=== PATIENT | male | born 1945 | race Caucasian/White ===

== ENCOUNTER → 2017-01-10 | Outpatient (CLI) | payer MEDICARE, BC, OTHER | LOC: MW.CHFP 08:00 | PROVIDERS: ATTEND Emergency Medicine | DX: J44.9 Chronic obstructive pulmonary disease, unspecified (principal); F51.04 Psychophysiologic insomnia; K86.1 Other chronic pancreatitis; I73.9 Peripheral vascular disease, unspecified | CPT/HCPCS: 99214 ==

== ENCOUNTER 2017-02-04 11:25 | Inpatient (IN) | payer MEDICARE, BC, OTHER ==
[2017-02-04] MEDS ORDERED: Sodium Chloride 0.9% 1,000 ML IV ONE (11:31)
[2017-02-04] MEDS ORDERED: Sodium Chloride 0.9% 10 ML Syringe FLUSH PRN (11:31)
[2017-02-04] MEDS ORDERED: Sodium Chloride 0.9% 2.5 ML Syringe FLUSH PRN (11:31)
--- NOTE | 2017-02-04 11:42 | EDM.PDOC ---
ED HPI GENERAL MEDICAL PROBLEM - General Stated Complaint: AMBULANCE Time Seen by Provider: 02/04/17 11:28 - History of Present Illness INITIAL COMMENTS - FREE TEXT/NARRATIVE: HISTORY AND PHYSICAL: History of present illness: Patient is a 71-year-old white male with extensive past medical history concern of syncopal episode he states became dizzy earlier today and lost consciousness he presents via paramedics complaint of shortness of breath at this time he was noted to be hypotensive in route he denies chest pain abdominal pain nausea vomiting he states he has been eating and drinking what he believes to be normal global last he recalls was a banana yesterday. Review of systems: As per history of present illness and below otherwise all systems reviewed and negative. Past medical history: As per history of present illness and as reviewed below otherwise noncontributory. Surgical history: As per history of present illness and as reviewed below otherwise noncontributory. Social history: No reported history of drug or alcohol abuse. Family history: As per history of present illness and as reviewed below otherwise noncontributory. Physical exam: HEENT: Atraumatic, normocephalic, pupils reactive, negative for conjunctival pallor or scleral icterus, mucous membranes dry, throat clear, neck supple, nontender, trachea midline. Lungs: Clear to auscultation, breath sounds equal bilaterally, chest nontender. Heart: S1S2, irregular, negative for clicks, rubs, or JVD. Abdomen: Soft, nondistended, nontender. Negative for masses or hepatosplenomegaly. Negative for costovertebral tenderness. Pelvis: Stable nontender. Genitourinary: Deferred. Rectal: Deferred. Extremities: Atraumatic, negative for cords or calf pain. Neurovascular unremarkable. Neuro: Awake, follows commands moves all extremities limited grossly nonfocal exam Diagnostics: CBC CMP PT/INR troponin UA urine culture blood culture x2 lactic acid EKG chest x-ray CT brain CT abdomen and pelvis Therapeutics: Normal saline 1 L bolus IV O2 monitor Impression: #1 syncope #2 hypotension #3 dehydration Definitive disposition and diagnosis as appropriate pending reevaluation and review of above. - Related Data Allergies Allergy/AdvReac Type Severity Reaction Status Date / Time No Known Allergies Allergy Verified 10/28/14 09:08 Home Meds: Home Meds Albuterol [Proventil HFA] 108 mcg INH Q4HR PRN 10/28/14 [History] Glimepiride [Amaryl] 2 mg PO WITHBREAKFAST 10/28/14 [History] Meloxicam [Mobic] 0.5 tab PO DAILY 10/28/14 [History] Tiotropium [Spiriva HandiHaler] 1 cap INH DAILY 10/28/14 [History] Zolpidem Tartrate 10 mg PO BEDTIME PRN 10/28/14 [History] atorvaSTATin Calcium [Atorvastatin Calcium] 20 mg PO DAILY 10/28/14 [History] metFORMIN HCl [Fortamet] 1.5 tab PO BID 10/28/14 [History] oxyCODONE ER [OxyCONTIN] 40 mg PO Q12HR 10/28/14 [History] Social & Family History - Tobacco Use Smoking Status *Q: Current Every Day Smoker Years of Tobacco use: 60 - Alcohol Use Days Per Week of Alcohol Use: 0 - Recreational Drug Use Recreational Drug Use: No - Living Situation & Occupation Living situation: Reports: Occupation: Retired ED ROS GENERAL - Review of Systems Review Of Systems: ROS reveals no pertinent complaints other than HPI. ED EXAM, GENERAL - Physical Exam Exam: See Below (See dictation) Course - Orders/Labs/Meds Orders: Active Orders 24 hr Category Date Time Status Cardiac Monitoring [RC] . DIRECTED Care 02/04/17 11:30 Active EKG Documentation Completion [RC] STAT Care 02/04/17 11:30 Active Oxygen Therapy, ED [RC] ASDIRECTED Care 02/04/17 11:30 Active Pulse Oximetry [RC] ASDIRECTED Care 02/04/17 11:30 Active Abdomen Pelvis wo Cont [CT] Stat Exams 02/04/17 11:31 Ordered Head wo Cont [CT] Stat Exams 02/04/17 11:31 Ordered B-TYPE NATRIURETIC PEPTIDE,BNP [CHEM] Stat Lab 02/04/17 11:30 Ordered BLOOD GAS ARTERIAL [BG] Stat Lab 02/04/17 11:31 Ordered CBC WITH AUTO DIFF [HEME] Stat Lab 02/04/17 11:30 Ordered COMPREHENSIVE METABOLIC PN,CMP [CHEM] Stat Lab 02/04/17 11:30 Ordered CULTURE BLOOD [BC] Stat Lab 02/04/17 11:31 Ordered CULTURE BLOOD [BC] Stat Lab 02/04/17 11:31 Ordered CULTURE URINE [RM] Stat Lab 02/04/17 11:31 Uncollected INR,PT,PROTHROMBIN TIME [COAG] Stat Lab 02/04/17 11:30 Ordered LACTIC ACID,WHOLE BLOOD [BG] Stat Lab 02/04/17 11:30 Ordered TROPONIN I [CHEM] Stat Lab 02/04/17 11:30 Ordered TYPE AND SCREEN [BBK] Stat Lab 02/04/17 11:31 Ordered UA W/MICROSCOPIC [URIN] Stat Lab 02/04/17 11:30 Uncollected Sodium Chloride 0.9% [Normal Saline] 1,000 ml Med 02/04/17 11:31 Active IV STAT Sodium Chloride 0.9% [Saline Flush] Med 02/04/17 11:31 Active 10 ml FLUSH ASDIRECTED PRN Sodium Chloride 0.9% [Saline Flush] Med 02/04/17 11:31 Active 2.5 ml FLUSH ASDIRECTED PRN Blood Culture x2 Reflex Set [OM.PC] Stat Oth 02/04/17 11:30 Ordered Saline Lock Insert [OM.PC] Stat Oth 02/04/17 11:30 Ordered Medication Orders Sodium Chloride (Normal Saline) 1,000 mls @ 999 mls/hr IV STAT ONE Stop: 02/04/17 12:31 Sodium Chloride (Saline Flush) 10 ml FLUSH ASDIRECTED PRN PRN Reason: Keep Vein Open Sodium Chloride (Saline Flush) 2.5 ml FLUSH ASDIRECTED PRN PRN Reason: Keep Vein Open Meds: Medications Generic Name Dose Route Start Last Admin Trade Name Freq PRN Reason Stop Dose Admin Sodium Chloride 1,000 mls @ 999 mls/hr 02/04/17 11:31 Normal Saline IV 02/04/17 12:31 STAT ONE Sodium Chloride 10 ml 02/04/17 11:31 Saline Flush FLUSH ASDIRECTED PRN Keep Vein Open Sodium Chloride 2.5 ml 02/04/17 11:31 Saline Flush FLUSH ASDIRECTED PRN Keep Vein Open Departure - Departure Time of Disposition: 11:41 Disposition: Admitted As Inpatient 65 Condition: undetermined Clinical Impression: Syncope - Discharge Information - My Orders Last 24 Hours: My Active Orders 02/04/17 11:30 Cardiac Monitoring [RC] . DIRECTED EKG Documentation Completion [RC] STAT Oxygen Therapy, ED [RC] ASDIRECTED Pulse Oximetry [RC] ASDIRECTED B-TYPE NATRIURETIC PEPTIDE,BNP [CHEM] Stat CBC WITH AUTO DIFF [HEME] Stat COMPREHENSIVE METABOLIC PN,CMP [CHEM] Stat INR,PT,PROTHROMBIN TIME [COAG] Stat LACTIC ACID,WHOLE BLOOD [BG] Stat TROPONIN I [CHEM] Stat UA W/MICROSCOPIC [URIN] Stat Blood Culture x2 Reflex Set [OM.PC] Stat Saline Lock Insert [OM.PC] Stat 02/04/17 11:31 Abdomen Pelvis wo Cont [CT] Stat Head wo Cont [CT] Stat BLOOD GAS ARTERIAL [BG] Stat CULTURE BLOOD [BC] Stat CULTURE BLOOD [BC] Stat CULTURE URINE [RM] Stat TYPE AND SCREEN [BBK] Stat Sodium Chloride 0.9% [Normal Saline] 1,000 ml IV STAT Sodium Chloride 0.9% [Saline Flush] 10 ml FLUSH ASDIRECTED PRN Sodium Chloride 0.9% [Saline Flush] 2.5 ml FLUSH ASDIRECTED PRN - Assessment/Plan Last 24 Hours: My Active Orders 02/04/17 11:30 Cardiac Monitoring [RC] . DIRECTED EKG Documentation Completion [RC] STAT Oxygen Therapy, ED [RC] ASDIRECTED Pulse Oximetry [RC] ASDIRECTED B-TYPE NATRIURETIC PEPTIDE,BNP [CHEM] Stat CBC WITH AUTO DIFF [HEME] Stat COMPREHENSIVE METABOLIC PN,CMP [CHEM] Stat INR,PT,PROTHROMBIN TIME [COAG] Stat LACTIC ACID,WHOLE BLOOD [BG] Stat TROPONIN I [CHEM] Stat UA W/MICROSCOPIC [URIN] Stat Blood Culture x2 Reflex Set [OM.PC] Stat Saline Lock Insert [OM.PC] Stat 02/04/17 11:31 Abdomen Pelvis wo Cont [CT] Stat Head wo Cont [CT] Stat BLOOD GAS ARTERIAL [BG] Stat CULTURE BLOOD [BC] Stat CULTURE BLOOD [BC] Stat CULTURE URINE [RM] Stat TYPE AND SCREEN [BBK] Stat Sodium Chloride 0.9% [Normal Saline] 1,000 ml IV STAT Sodium Chloride 0.9% [Saline Flush] 10 ml FLUSH ASDIRECTED PRN Sodium Chloride 0.9% [Saline Flush] 2.5 ml FLUSH ASDIRECTED PRN
[2017-02-04] MEDS ORDERED: Ketorolac 15 MG/ML SDV IVPUSH ONE (13:37)
[2017-02-04] MEDS ORDERED: Ondansetron 4 MG Tab.DIS PO PRN (16:17)
--- NOTE | 2017-02-04 16:32 | PCM.HP ---
H&P History of Present Illness - General Date of Service: 02/04/17 Source of Information: Patient History Limitations: Reports: No Limitations - History of Present Illness Initial Comments - Free Text/Narative: The patient is a 71-year-old gentleman who is presented to the emergency department by ambulance secondary to syncopal episodes as well as falls. The patient is a medically complex 71-year-old gentleman with presented primarily out of concern for falling. Patient reports that he has been feeling weak and off-balance for the past 3 days. Patient reports that he has had multiple injuries over the past 3 days secondary to falls almost every day. Patient says that he will get dizzy and lightheaded and then either passed out or just simply fall. The patient has denied any postictal period. Patient last saw his primary care physician 3 weeks ago. The patient has a history of severe COPD and unfortunately still continues to smoke. The patient is a his several years ago when he is by himself currently. The patient says that he has not been eating properly although he has no nausea or vomiting. He is also denied chest pain. No unusual shortness of breath. Patient feels that he has been in declining health. The patient also has been taking OxyContin 40 mg every 12 hours as needed for his chronic pain. This is secondary to pancreatitis. Onset of Symptoms: Reports: Gradual Duration of Symptoms: Reports: Day(s): Location: Reports: Generalized Quality: Reports: Dull, Throbbing Severity: Moderate Improves with: Reports: Medication Worsens with: Reports: Eating Associated Symptoms: Reports: Malaise, Syncope left lower rib Pain Score (Numeric/FACES): 5 - Related Data Allergies/Adverse Reactions: Allergies Allergy/AdvReac Type Severity Reaction Status Date / Time No Known Allergies Allergy Verified 02/04/17 11:45 Home Medications: Home Meds Budesonide/Formoterol [Symbicort 160-4.5 MCG] 1 puff INH BID 02/04/17 [History] Esomeprazole Magnesium [Nexium 24Hr] 22.3 mg PO DAILY 02/04/17 [History] Finasteride 5 mg PO DAILY 02/04/17 [History] Furosemide [Lasix] 20 mg PO DAILY 02/04/17 [History] Meloxicam 7.5 mg PO DAILY 02/04/17 [History] Metoclopramide [Reglan] 5 mg PO BID 02/04/17 [History] Sertraline [Zoloft] 50 mg PO BEDTIME 02/04/17 [History] Tamsulosin Hcl [IJD: Tamsulosin HCl] 0.4 mg PO BEDTIME 02/04/17 [History] Tiotropium [Spiriva HandiHaler] 18 mcg INH DAILY 02/04/17 [History] Zolpidem [Ambien] 5 mg PO BEDTIME 02/04/17 [History] metFORMIN HCl [Metformin HCl] 1,500 mg PO BID 02/04/17 [History] traZODone HCl [Trazodone HCl] 100 mg PO BEDTIME 02/04/17 [History] Past Medical History HEENT History: Reports: Impaired Vision Cardiovascular History: Reports: High Cholesterol, Hypertension Respiratory History: Reports: COPD Gastrointestinal History: Reports: GERD, Pancreatitis Genitourinary History: Reports: None Musculoskeletal History: Reports: None Neurological History: Reports: None Psychiatric History: Reports: Anxiety, Depression Endocrine/Metabolic History: Reports: Diabetes, Type II Hematologic History: Reports: None Immunologic History: Reports: None Oncologic (Cancer) History: Reports: None Dermatologic History: Reports: None - Infectious Disease History Infectious Disease History: Reports: None - Past Surgical History Respiratory Surgical History: Reports: Other (See Below) Other Respiratory Surgeries/Procedures: 1/2 lung removed right lung GI Surgical History: Reports: Other (See Below) Other GI Surgeries/Procedures: partial intestin removed. Social & Family History - Family History Family Medical History: Noncontributory Cardiac: Reports: CAD, Hypertension, NE Neurological: Reports: CVA Endocrine/Metabolic: Reports: Diabetes, type II - Tobacco Use Smoking Status *Q: Current Every Day Smoker Years of Tobacco use: 60 Packs/Tins Daily: 2 - Caffeine Use Caffeine Use: Reports: Coffee, Soda, Tea - Alcohol Use Days Per Week of Alcohol Use: 0 - Recreational Drug Use Recreational Drug Use: No - Living Situation & Occupation Living situation: Reports: Occupation: Retired H&P Review of Systems - Review of Systems: Review Of Systems: See Below General: Reports: Malaise, Fatigue, Decreased Appetite HEENT: Reports: No Symptoms Pulmonary: Reports: Shortness of Breath, Wheezing, Cough Cardiovascular: Reports: No Symptoms Gastrointestinal: Reports: Decreased Appetite Genitourinary: Reports: No Symptoms Musculoskeletal: Reports: Back Pain Skin: Reports: No Symptoms Psychiatric: Reports: No Symptoms Neurological: Reports: Syncope, Tremors, Difficulty Walking, Weakness Hematologic/Lymphatic: Reports: Easy Bruising Immunologic: Reports: No Symptoms Exam - Exam Exam: See Below - Vital Signs Vital Signs: Last Vital Signs Temp 36.4 C 02/04/17 14:50 Pulse 102 H 02/04/17 14:50 Resp 24 H 02/04/17 14:50 BP 82/50 L 02/04/17 14:50 Pulse Ox 96 02/04/17 14:50 Weight: 78.063 kg - Exam Quality Assessment: Supplemental Oxygen General: Alert, Oriented, Cooperative HEENT: Conjunctiva Clear (ectropion right eye), EOMI, Nares Patent. No: Mucosa Moist & [place] (Dry) Neck: Supple, Trachea Midline Lungs: Crackles, Wheezing Cardiovascular: Regular Rate, Regular Rhythm Abdomen: Normal Bowel Sounds, Soft, Hypoactive Bowel Sounds. No: Distention, Guarding, Rigidity, Tenderness Back Exam: Decreased Range of Motion Extremities: Normal Inspection Skin: Warm, Dry, Intact, Ecchymosis (scattered, arms, forehead, right elbow, left forearm, left knee) Neurological: Cranial Nerves Intact Neuro Extensive - Mental Status: Alert, Oriented x3, Normal Mood/Affect Psychiatric: Alert, Normal Affect, Normal Mood - Patient Data Result Diagrams: 02/04/17 11:50 02/04/17 11:50 *Q Meaningful Use (ADM) - VTE *Q VTE Criteria *Q: VTE Mechanical Contraindications *Q: At Risk for Falls - VTE Risk Assess *Q Each Risk Factor Represents 1 Point: Congestive Heart Failure, Less than 1 Month Total Score 1 Point Risk Factors: 1 Each Risk Factor Represents 2 Points: Age 60 - 74 Years Total Score 2 Point Risk Factors: 2 - Stroke *Q Stroke Criteria *Q: - AMI *Q AMI Criteria *Q: - Problem List (1) Syncope SNOMED Code(s): 435856392 ICD Code: R55 - SYNCOPE AND COLLAPSE Status: Acute Priority: High Current Visit: Yes Qualifiers: Syncope type: unspecified Qualified Code(s): R55 - Syncope and collapse (2) Dehydration SNOMED Code(s): 34678933 ICD Code: E86.0 - DEHYDRATION Status: Acute Priority: High Current Visit: Yes (3) Gait disturbance SNOMED Code(s): 90449513 ICD Code: R26.9 - UNSPECIFIED ABNORMALITIES OF GAIT AND MOBILITY Status: Chronic Priority: Medium Current Visit: Yes (4) Smoker SNOMED Code(s): 49312517 ICD Code: F17.200 - NICOTINE DEPENDENCE, UNSPECIFIED, UNCOMPLICATED Status : Chronic Priority: Medium Current Visit: Yes (5) Diabetes type 2, controlled SNOMED Code(s): 67275368 ICD Code: E11.9 - TYPE 2 DIABETES MELLITUS WITHOUT COMPLICATIONS Status: Chronic Priority: High Current Visit: Yes Qualifiers: Diabetes mellitus complication status: without complication Diabetes mellitus mcfp insulin use: without mcfp use Qualified Code(s): E11.9 - Type 2 diabetes mellitus without complications (6) COPD, Severe chronic obstructive pulmonary disease SNOMED Code(s): 560009397 ICD Code: J44.9 - CHRONIC OBSTRUCTIVE PULMONARY DISEASE, UNSPECIFIED Status : Chronic Priority: Medium Current Visit: Yes Problem List Initiated/Reviewed/Updated: Yes Orders Last 24hrs: Active Orders 24 hr Category Date Time Status Patient Status [ADT] Routine ADT 02/04/17 16:17 Active Blood Glucose Check, Bedside [RC] WITHMEALSANDBED Care 02/04/17 16:17 Active Oxygen Therapy [RC] PRN Care 02/04/17 16:17 Active RT Aerosol Therapy [RC] ASDIRECTED Care 02/04/17 16:22 Active Telemetry Monitoring [Cardiac Monitoring] [RC] Q8H Care 02/04/17 14:33 Active Up With Assistance [RC] ASDIRECTED Care 02/04/17 16:17 Active VTE/DVT Education [RC] PER UNIT ROUTINE Care 02/04/17 16:17 Active Vital Signs [RC] Q4H Care 02/04/17 16:17 Active PT Evaluation and Treatment [CONS] Routine Cons 02/04/17 16:17 Active [employer] Diet [DIET] Diet 02/04/17 Dinner Active CBC WITH AUTO DIFF [HEME] AM Lab 02/05/17 05:11 Ordered COMPREHENSIVE METABOLIC PN,CMP [CHEM] AM Lab 02/05/17 05:11 Ordered LACTIC ACID,WHOLE BLOOD [BG] Routine Lab 02/04/17 17:00 Ordered MAGNESIUM [CHEM] Routine Lab 02/04/17 16:17 Ordered PHOSPHORUS [CHEM] Routine Lab 02/04/17 16:17 Ordered Acetaminophen [Tylenol] Med 02/04/17 16:17 Active 650 mg PO Q4H PRN Albuterol/Ipratropium [DuoNeb 3.0-0.5 MG/3 ML] Med 02/04/17 16:17 Active 3 ml NEB Q4HRRT PRN Azithromycin [Zithromax] 500 mg Med 02/04/17 16:15 Active Sodium Chloride 0.9% [Normal Saline] 250 ml IV Q24H Budesonide/Formoterol Med 02/04/17 21:00 Ordered 1 puff INH BID Enoxaparin [Lovenox] Med 02/05/17 09:00 Active 40 mg SUBCUT DAILY Esomeprazole Magnesium [Nexium 24Hr] Med 02/05/17 09:00 Ordered 22.3 mg PO DAILY Finasteride [Proscar] Med 02/05/17 09:00 Active 5 mg PO DAILY Furosemide [Lasix] Med 02/05/17 09:00 Active 20 mg PO DAILY Ondansetron [Zofran ODT] Med 02/04/17 16:17 Active 4 mg PO Q4H PRN Sertraline [Zoloft] Med 02/04/17 21:00 Active 50 mg PO BEDTIME Sodium Chloride 0.9% [Normal Saline] 1,000 ml Med 02/04/17 16:30 Ordered IV ASDIRECTED Tamsulosin [Flomax] Med 02/04/17 21:00 Ordered 0.4 mg PO BEDTIME Tiotropium [Spiriva HandiHaler] Med 02/05/17 09:00 Active 18 mcg INH DAILY metFORMIN [Glucophage] Med 02/04/17 21:00 Ordered 1,500 mg PO BID oxyCODONE ER [OxyCONTIN] Med 02/04/17 16:25 Ordered 40 mg PO BEDTIME PRN traZODone HCl [Trazodone HCl] Med 02/04/17 21:00 Ordered 100 mg PO BEDTIME Resuscitation Status Routine Resus Stat 02/04/17 16:17 Ordered Medication Orders Acetaminophen (Tylenol) 650 mg PO Q4H PRN PRN Reason: Pain (Mild 1-3)/fever Albuterol/Ipratropium (Duoneb 3.0-0.5 Mg/3 Ml) 3 ml NEB Q4HRRT PRN PRN Reason: Shortness Of Breath/wheezing Enoxaparin Sodium (Lovenox) 40 mg SUBCUT DAILY [facility] Finasteride (Proscar) 5 mg PO DAILY [facility] Furosemide (Lasix) 20 mg PO DAILY [facility] Azithromycin 500 mg/ Sodium (Chloride) 250 mls @ 250 mls/hr IV Q24H [facility] Sodium Chloride (Normal Saline) 1,000 mls @ 125 mls/hr IV ASDIRECTED [facility] Metformin HCl (Glucophage) 1,500 mg PO BID [facility] Non-Formulary Medication (Budesonide/Formoterol) 1 puff INH BID [facility] Non-Formulary Medication (Esomeprazole Magnesium [Nexium 24hr]) 22.3 mg PO DAILY [facility] Non-Formulary Medication (Trazodone Hcl [Trazodone Hcl]) 100 mg PO BEDTIME [facility] Ondansetron HCl (Zofran Odt) 4 mg PO Q4H PRN PRN Reason: nausea, able to take PO Oxycodone HCl (Oxycontin) 40 mg PO BEDTIME PRN PRN Reason: Pain (severe 7-10) Sertraline HCl (Zoloft) 50 mg PO BEDTIME [facility] Sodium Chloride (Saline Flush) 10 ml FLUSH ASDIRECTED PRN PRN Reason: Keep Vein Open Last Admin: 02/04/17 12:06 Dose: 10 ml Sodium Chloride (Saline Flush) 2.5 ml FLUSH ASDIRECTED PRN PRN Reason: Keep Vein Open Last Admin: 02/04/17 12:07 Dose: 2.5 ml Tamsulosin HCl (Flomax) 0.4 mg PO BEDTIME [facility] Tiotropium [place] (Spiriva Handihaler) 18 mcg INH DAILY [facility] Assessment/Plan Comment:: February 04, 2017: The patient has a been admitted to observation. The patient likely has syncopal episode secondary to dehydration or volume contraction. The patient has not been eating well or drinking well within the past several days. The patient does have a lactic acid of 3.5 and he'll be placed on a lactic as protocol. I've also elected to fluid resuscitate the patient with normal saline at 125 mL per hour. Despite of the patient's lactic acid being elevated today do not suspect that this is secondary to an infection. The patient has no focal signs of infection and his white blood cell count is normal. I will treat the patient as a COPD exacerbation though with IV azithromycin 500 mg daily. The patient will also be kept on oxygen support to help keep his saturations above 92%. I've ordered PT OT for the patient to evaluate him and I have discussed with the patient the possibility of going to [facility] as he does live by himself and is thus far not able to care for himself. The patient has been taking OxyContin according to his medical record 40 mg by mouth twice a day for his chronic pain secondary to his chronic pancreatitis. This will be continued. I've also ordered a CBC, comprehensive metabolic panel for the morning. The patient will also be placed on a diabetic diet and he'll have his blood sugars checked 3 times a day and at bedtime. I have continued most of the patient's home medications. Patient's treatment plan will be adjusted as information indicates.
[2017-02-04] MEDS: Azithromycin 500 MG in Sodium Chloride 0.9% 250 ML IV SCH (16:35)
[2017-02-04] MEDS: Sodium Chloride 0.9% 1,000 ML IV SCH (16:35)
[2017-02-04] MEDS: Temazepam 15 MG Cap PO PRN (18:09)
[2017-02-04] MEDS: oxyCODONE ER 20 MG TAB.ER PO PRN (18:09)
[2017-02-04] MEDS: metFORMIN 500 MG Tab PO SCH (20:50)
[2017-02-04] MEDS: Sertraline 50 MG Tab PO SCH (20:50)
[2017-02-04] MEDS: traZODone 50 MG Tab PO SCH (20:50)
[2017-02-04] MEDS: Tamsulosin 0.4 MG Cap.ER PO SCH (20:50)
[2017-02-04] MEDS: SYMBICORT 160-4.5MCG INH SCH (21:00)
[2017-02-05] MEDS: Sodium Chloride 0.9% 1,000 ML IV SCH ×3 (04:03→23:04)
[2017-02-05 06:30] LABS: CHLORIDE,CL 106 mmol/L (98-110); SODIUM,NA 135 mmol/L (136-146)
[2017-02-05] MEDS: Albuterol/Ipratropium 3.0-0.5 MG/3 ML Neb Soln NEB PRN ×2 (07:58→17:49)
[2017-02-05] MEDS: SYMBICORT 160-4.5MCG INH SCH ×3 (08:03→20:11)
[2017-02-05] MEDS: Tiotropium Inhaler 18 MCG Inhalation Powder Cap Kit of 5 INH SCH (08:03)
[2017-02-05] MEDS: Omeprazole 20 MG Cap.CR PO SCH (08:16)
[2017-02-05] MEDS: metFORMIN 500 MG Tab PO SCH ×2 (08:16→20:10)
[2017-02-05] MEDS: Finasteride 5 MG Tab PO SCH (08:16)
[2017-02-05] MEDS: Furosemide 20 MG Tab PO SCH (08:16)
[2017-02-05] MEDS: Enoxaparin 40 MG/0.4 ML Syringe SUBCUT SCH (08:17)
--- NOTE | 2017-02-05 11:52 | PCM.PN ---
- General Info Date of Service: 02/05/17 Admission Dx/Problem (Free Text): The patient was admitted out of concern for syncopal episodes as well as multiple falls over several days. Subjective Update: the patient was changed to inpatient status from observation. Functional Status: Reports: urinating (Burrows catheter). Denies: pain controlled Pain Score: 5 (occasional rib pain) - Review of Systems General: Reports: Malaise HEENT: Reports: no symptoms Pulmonary: Reports: no symptoms Cardiovascular: Reports: No Symptoms Gastrointestinal: Reports: No symptoms Genitourinary: Reports: no symptoms Musculoskeletal: Reports: arm pain Skin: Reports: bruising Neurological: Reports: Confusion, Tremors Psychiatric: Reports: no symptoms - Patient Data Vitals - most recent: Last Vital Signs Temp 36.9 C 02/05/17 08:00 Pulse 77 02/05/17 08:00 Resp 28 H 02/05/17 08:00 BP 111/59 L 02/05/17 08:00 Pulse Ox 96 02/05/17 08:04 Weight - most recent: 78.063 kg I&O - last 24 hours: Intake & Output 02/04/17 02/05/17 02/05/17 22:59 06:59 14:59 Intake Total 717 2150 Output Total 0 50 Balance 717 2100 Lab Results last 24 hrs: Laboratory Results - last 24 hr 02/04/17 02/04/17 02/04/17 Range/Units 16:54 17:02 20:45 WBC (4.0-11.0) K/uL RBC (4.50-5.90) M/uL Hgb (13.0-17.0) g/dL Hct (38.0-50.0) % MCV (80.0-98.0) fL MCH (27.0-32.0) pg MCHC (31.0-37.0) g/dL RDW Std Deviation (28.0-62.0) fl RDW Coeff of Angie (11.0-15.0) % Plt Count (150-400) K/uL MPV (7.40-12.00) fL Neut % (Auto) (48.0-80.0) % Lymph % (Auto) (16.0-40.0) % [place] % (Auto) (0.0-15.0) % Eos % (Auto) (0.0-7.0) % Baso % (Auto) (0.0-1.5) % Neut # (Auto) (1.4-5.7) K/uL Lymph # (Auto) (0.6-2.4) K/uL [place] # (Auto) (0.0-0.8) K/uL Eos # (Auto) (0.0-0.7) K/uL Baso # (Auto) (0.0-0.1) K/uL Nucleated RBC % /100WBC Nucleated RBCs # K/uL INR (0.86-1.11) Lactate 1.9 (0.20-2.00) mmol/L Sodium (136-146) mmol/L Potassium (3.5-5.1) mmol/L Chloride (98-110) mmol/L Carbon Dioxide (21-31) mmol/L BUN (6.0-23.0) mg/dL Creatinine (0.6-1.5) mg/dL Est Cr Clr Drug Dosing mL/min Estimated GFR (MDRD) ml/min Glucose (60-110) mg/dL POC Glucose 158 H 205 H (60-110) mg/dL Calcium (8.8-10.8) mg/dL Total Bilirubin (0.1-1.5) mg/dL AST (5-40) IU/L ALT (8-54) IU/L Alkaline Phosphatase (40-150) Total Protein (6.0-8.0) g/dL Albumin (3.4-4.8) g/dL Globulin (2.0-3.5) g/dL Albumin/Globulin Ratio (1.3-2.8) 02/05/17 02/05/17 02/05/17 Range/Units 05:50 05:50 06:32 WBC 11.06 H (4.0-11.0) K/uL RBC 3.64 L (4.50-5.90) M/uL Hgb 10.8 L (13.0-17.0) g/dL Hct 33.0 L (38.0-50.0) % MCV 90.7 (80.0-98.0) fL MCH 29.7 (27.0-32.0) pg MCHC 32.7 (31.0-37.0) g/dL RDW Std Deviation 49.8 (28.0-62.0) fl RDW Coeff of Angie 15 (11.0-15.0) % Plt Count 198 (150-400) K/uL MPV 8.60 (7.40-12.00) fL Neut % (Auto) 81.4 H (48.0-80.0) % Lymph % (Auto) 6.7 L (16.0-40.0) % [place] % (Auto) 11.8 (0.0-15.0) % Eos % (Auto) 0.0 (0.0-7.0) % Baso % (Auto) 0.1 (0.0-1.5) % Neut # (Auto) 9.0 H (1.4-5.7) K/uL Lymph # (Auto) 0.7 (0.6-2.4) K/uL [place] # (Auto) 1.3 H (0.0-0.8) K/uL Eos # (Auto) 0.0 (0.0-0.7) K/uL Baso # (Auto) 0.0 (0.0-0.1) K/uL Nucleated RBC % 0.0 /100WBC Nucleated RBCs # 0 K/uL INR (0.86-1.11) Lactate (0.20-2.00) mmol/L Sodium 135 L (136-146) mmol/L Potassium 4.4 (3.5-5.1) mmol/L Chloride 106 (98-110) mmol/L Carbon Dioxide 19 L (21-31) mmol/L BUN 29 H (6.0-23.0) mg/dL Creatinine 1.0 (0.6-1.5) mg/dL Est Cr Clr Drug Dosing 73.29 mL/min Estimated GFR (MDRD) > 60.0 ml/min Glucose 172 H (60-110) mg/dL POC Glucose 165 H (60-110) mg/dL Calcium 8.1 L (8.8-10.8) mg/dL Total Bilirubin 0.9 (0.1-1.5) mg/dL AST 20 (5-40) IU/L ALT 11 (8-54) IU/L Alkaline Phosphatase 77 (40-150) Total Protein 5.9 L (6.0-8.0) g/dL Albumin 3.3 L (3.4-4.8) g/dL Globulin 2.6 (2.0-3.5) g/dL Albumin/Globulin Ratio 1.3 (1.3-2.8) 02/05/17 02/05/17 Range/Units 11:22 11:43 WBC (4.0-11.0) K/uL RBC (4.50-5.90) M/uL Hgb (13.0-17.0) g/dL Hct (38.0-50.0) % MCV (80.0-98.0) fL MCH (27.0-32.0) pg MCHC (31.0-37.0) g/dL RDW Std Deviation (28.0-62.0) fl RDW Coeff of Angie (11.0-15.0) % Plt Count (150-400) K/uL MPV (7.40-12.00) fL Neut % (Auto) (48.0-80.0) % Lymph % (Auto) (16.0-40.0) % [place] % (Auto) (0.0-15.0) % Eos % (Auto) (0.0-7.0) % Baso % (Auto) (0.0-1.5) % Neut # (Auto) (1.4-5.7) K/uL Lymph # (Auto) (0.6-2.4) K/uL [place] # (Auto) (0.0-0.8) K/uL Eos # (Auto) (0.0-0.7) K/uL Baso # (Auto) (0.0-0.1) K/uL Nucleated RBC % /100WBC Nucleated RBCs # K/uL INR 1.05 (0.86-1.11) Lactate (0.20-2.00) mmol/L Sodium (136-146) mmol/L Potassium (3.5-5.1) mmol/L Chloride (98-110) mmol/L Carbon Dioxide (21-31) mmol/L BUN (6.0-23.0) mg/dL Creatinine (0.6-1.5) mg/dL Est Cr Clr Drug Dosing mL/min Estimated GFR (MDRD) ml/min Glucose (60-110) mg/dL POC Glucose 133 H (60-110) mg/dL Calcium (8.8-10.8) mg/dL Total Bilirubin (0.1-1.5) mg/dL AST (5-40) IU/L ALT (8-54) IU/L Alkaline Phosphatase (40-150) Total Protein (6.0-8.0) g/dL Albumin (3.4-4.8) g/dL Globulin (2.0-3.5) g/dL Albumin/Globulin Ratio (1.3-2.8) Med Orders - Current: Current Medications Acetaminophen (Tylenol) 650 mg PO Q4H PRN PRN Reason: Pain (Mild 1-3)/fever Albuterol/Ipratropium (Duoneb 3.0-0.5 Mg/3 Ml) 3 ml NEB Q4HRRT PRN PRN Reason: Shortness Of Breath/wheezing Last Admin: 02/05/17 07:58 Dose: 3 ml Enoxaparin Sodium (Lovenox) 40 mg SUBCUT DAILY [facility] Last Admin: 02/05/17 08:17 Dose: 40 mg Finasteride (Proscar) 5 mg PO DAILY [facility] Last Admin: 02/05/17 08:16 Dose: 5 mg Furosemide (Lasix) 20 mg PO DAILY [facility] Last Admin: 02/05/17 08:16 Dose: 20 mg Azithromycin 500 mg/ Sodium (Chloride) 250 mls @ 250 mls/hr IV Q24H [facility] Last Admin: 02/04/17 16:35 Dose: 250 mls/hr Sodium Chloride (Normal Saline) 1,000 mls @ 125 mls/hr IV ASDIRECTED [facility] Last Admin: 02/05/17 04:03 Dose: 125 mls/hr Vancomycin HCl 1,250 mg/ (Sodium Chloride) 250 mls @ 166.667 mls/hr IV Q12H [facility] Metformin HCl (Glucophage) 1,500 mg PO BID [facility] Last Admin: 02/05/17 08:16 Dose: 1,500 mg Omeprazole (Omeprazole) 20 mg PO DAILY [facility] Last Admin: 02/05/17 08:16 Dose: 20 mg Ondansetron HCl (Zofran Odt) 4 mg PO Q4H PRN PRN Reason: nausea, able to take PO Oxycodone HCl (Oxycontin) 40 mg PO BEDTIME PRN PRN Reason: Pain (severe 7-10) Last Admin: 02/04/17 18:09 Dose: 40 mg Oxycodone HCl (Oxycodone) 5 mg PO Q4H PRN PRN Reason: Breakthrough Pain Symbicort 160-4.5mcg 1 each INH BID [facility] Last Admin: 02/05/17 10:54 Dose: 1 each Sertraline HCl (Zoloft) 50 mg PO BEDTIME [facility] Last Admin: 02/04/17 20:50 Dose: 50 mg Sodium Chloride (Saline Flush) 10 ml FLUSH ASDIRECTED PRN PRN Reason: Keep Vein Open Last Admin: 02/04/17 12:06 Dose: 10 ml Sodium Chloride (Saline Flush) 2.5 ml FLUSH ASDIRECTED PRN PRN Reason: Keep Vein Open Last Admin: 02/04/17 12:07 Dose: 2.5 ml Tamsulosin HCl (Flomax) 0.4 mg PO BEDTIME [facility] Last Admin: 02/04/17 20:50 Dose: 0.4 mg Temazepam (Restoril) 15 mg PO BEDTIME PRN PRN Reason: Sleep Last Admin: 02/04/17 18:09 Dose: 15 mg Tiotropium Hosmer (Spiriva Handihaler) 18 mcg INH DAILY [facility] Last Admin: 02/05/17 08:03 Dose: 1 cap Trazodone HCl (Trazodone) 100 mg PO BEDTIME [facility] Last Admin: 02/04/17 20:50 Dose: 100 mg Vancomycin HCl (Pharmacy To Dose - Vancomycin) 1 dose .XX ASDIRECTED [facility] Discontinued Medications Sodium Chloride (Normal Saline) 1,000 mls @ 999 mls/hr IV STAT ONE Stop: 02/04/17 12:31 Last Admin: 02/04/17 12:05 Dose: 999 mls/hr Vancomycin HCl 1,250 mg/ (Dextrose/Water) 250 mls @ 166.667 mls/hr IV Q12H [facility] Last Admin: 02/05/17 00:37 Dose: 166.667 mls/hr Ketorolac Tromethamine (Toradol) 15 mg IVPUSH STAT ONE Stop: 02/04/17 13:38 Last Admin: 02/04/17 13:42 Dose: 15 mg - Exam Quality Assessment: supplemental oxygen General: alert, oriented, cooperative, mild distress HEENT: Pupils equal, Pupils reactive. No: Scleral icterus Neck: supple Lungs: Rales (bibasilar) Cardiovascular: Regular Rate, Regular Rhythm Abdomen: bowel sounds present, soft Back Exam: Decreased Range of Motion Skin: warm, dry, intact Neurological: no new focal deficit Psy/Mental Status: alert, depressed - Problem List & Annotations (1) Bacteremia due to Gram-positive bacteria SNOMED Code(s): 875086650636 Code(s): R78.81 - BACTEREMIA Status: Acute Priority: High Current Visit : Yes (2) Syncope SNOMED Code(s): 523096530 Code(s): R55 - SYNCOPE AND COLLAPSE Status: Acute Priority: High Current Visit: Yes Qualifiers: Syncope type: unspecified Qualified Code(s): R55 - Syncope and collapse (3) Dehydration SNOMED Code(s): 59126156 Code(s): E86.0 - DEHYDRATION Status: Acute Priority: High Current Visit : Yes (4) Gait disturbance SNOMED Code(s): 83725363 Code(s): R26.9 - UNSPECIFIED ABNORMALITIES OF GAIT AND MOBILITY Status: Chronic Priority: Medium Current Visit: Yes (5) Smoker SNOMED Code(s): 77582413 Code(s): F17.200 - NICOTINE DEPENDENCE, UNSPECIFIED, UNCOMPLICATED Status: Chronic Priority: Medium Current Visit: Yes (6) Diabetes type 2, controlled SNOMED Code(s): 70042289 Code(s): E11.9 - TYPE 2 DIABETES MELLITUS WITHOUT COMPLICATIONS Status: Chronic Priority: High Current Visit: Yes Qualifiers: Diabetes mellitus complication status: without complication Diabetes mellitus termite technician insulin use: without termite technician use Qualified Code(s): E11.9 - Type 2 diabetes mellitus without complications (7) COPD, Severe chronic obstructive pulmonary disease SNOMED Code(s): 353873929 Code(s): J44.9 - CHRONIC OBSTRUCTIVE PULMONARY DISEASE, UNSPECIFIED Status : Chronic Priority: Medium Current Visit: Yes - Problem List Review Problem List Initiated/Reviewed/Updated: Yes - My Orders Last 24 Hours: My Active Orders 02/04/17 14:33 Telemetry Monitoring [Cardiac Monitoring] [RC] Q8H 02/04/17 16:15 Azithromycin [Zithromax] 500 mg Sodium Chloride 0.9% [Normal Saline] 250 ml IV Q24H 02/04/17 16:17 Patient Status [ADT] Routine Blood Glucose Check, Bedside [RC] WITHMEALSANDBED Oxygen Therapy [RC] PRN Up With Assistance [RC] ASDIRECTED Vital Signs [RC] Q4H PT Evaluation and Treatment [CONS] Routine Acetaminophen [Tylenol] 650 mg PO Q4H PRN Albuterol/Ipratropium [DuoNeb 3.0-0.5 MG/3 ML] 3 ml NEB Q4HRRT PRN Ondansetron [Zofran ODT] 4 mg PO Q4H PRN Resuscitation Status Routine 02/04/17 16:22 RT Aerosol Therapy [RC] ASDIRECTED 02/04/17 16:25 oxyCODONE ER [OxyCONTIN] 40 mg PO BEDTIME PRN 02/04/17 16:30 Sodium Chloride 0.9% [Normal Saline] 1,000 ml IV ASDIRECTED 02/04/17 17:56 Temazepam [Restoril] 15 mg PO BEDTIME PRN 02/04/17 21:00 Patient's Own Medication [Ptom] 1 each INH BID Sertraline [Zoloft] 50 mg PO BEDTIME Tamsulosin [Flomax] 0.4 mg PO BEDTIME metFORMIN [Glucophage] 1,500 mg PO BID traZODone 100 mg PO BEDTIME 02/04/17 23:45 Vancomycin Pharmacy to Dose [Pharmacy to Dose - Vancomycin] 1 dose .XX ASDIRECTED 02/04/17 [employer] Diet [DIET] 02/05/17 04:45 Insert Burrows Catheter [Insert Urinary Catheter] [OM.PC] Q24H 02/05/17 04:46 Urinary Catheter Assessment [RC] ASDIRECTED 02/05/17 09:00 Enoxaparin [Lovenox] 40 mg SUBCUT DAILY Finasteride [Proscar] 5 mg PO DAILY Furosemide [Lasix] 20 mg PO DAILY Omeprazole 20 mg PO DAILY Tiotropium [Spiriva HandiHaler] 18 mcg INH DAILY 02/05/17 11:10 oxyCODONE 5 mg PO Q4H PRN 02/05/17 12:30 Vancomycin 1,250 mg Sodium Chloride 0.9% [Normal Saline] 250 ml IV Q12H - Plan Plan:: February 04, 2017: The patient has a been admitted to observation. The patient likely has syncopal episode secondary to dehydration or volume contraction. The patient has not been eating well or drinking well within the past several days. The patient does have a lactic acid of 3.5 and he'll be placed on a lactic as protocol. I've also elected to fluid resuscitate the patient with normal saline at 125 mL per hour. Despite of the patient's lactic acid being elevated today do not suspect that this is secondary to an infection. The patient has no focal signs of infection and his white blood cell count is normal. I will treat the patient as a COPD exacerbation though with IV azithromycin 500 mg daily. The patient will also be kept on oxygen support to help keep his saturations above 92%. I've ordered PT OT for the patient to evaluate him and I have discussed with the patient the possibility of going to baffled snf as he does live by himself and is thus far not able to care for himself. The patient has been taking OxyContin according to his medical record 40 mg by mouth twice a day for his chronic pain secondary to his chronic pancreatitis. This will be continued. I've also ordered a CBC, comprehensive metabolic panel for the morning. The patient will also be placed on a diabetic diet and he'll have his blood sugars checked 3 times a day and at bedtime. I have continued most of the patient's home medications. Patient's treatment plan will be adjusted as information indicates. February 05, 2017: Patient has had 2 positive blood cultures for gram-positive cocci in clusters. The patient's azithromycin was discontinued and he was placed on vancomycin. I've also ordered a chest x-ray to help exclude staph pneumonia. Which would be a likely source of the patient's bacteremia. The patient's status is also been changed from observation to inpatient. I had a long discussion with the patient's daughter and she is concerned that he has exhibited a significant decline over the past several months. Patient's are him 2 years ago. Patient is currently in a DO NOT RESUSCITATE denied to be category. Patient's daughter is concerned that he has "given up" and likely will not do very well. The patient has had some breakthrough pain from his use of the OxyContin at night. I've ordered oxycodone 5 mg every 4 hours as necessary for breakthrough pain. I've also ordered PT OT for the patient. The patient does exhibit worsening of his ecchymoses on his arms and ordered a PT/INR which is subsequently proved to be normal. To continue with the patient's fluid support, Burrows catheter secondary to inability to urinate and his antibiotics for now. As of yesterday the patient's lactate has also normalized. The patient's treatment plan will be adjusted as information indicates. I will continue the patient's ADA diet. I've ordered testing in the morning.
[2017-02-05] MEDS: Acetaminophen 325 MG Tab PO PRN (12:17)
[2017-02-05 12:25] LABS: CHLORIDE,CL 106 mmol/L (98-110); SODIUM,NA 136 mmol/L (136-146)
[2017-02-05] MEDS: Azithromycin 500 MG in Sodium Chloride 0.9% 250 ML IV SCH (16:24)
[2017-02-05] MEDS: oxyCODONE 5 MG Tab PO PRN ×2 (16:24→23:00)
[2017-02-05] MEDS: traZODone 50 MG Tab PO SCH ×2 (19:12→20:11)
[2017-02-05] MEDS: oxyCODONE ER 20 MG TAB.ER PO PRN (19:13)
[2017-02-05] MEDS: Sertraline 50 MG Tab PO SCH (20:11)
[2017-02-05] MEDS: Tamsulosin 0.4 MG Cap.ER PO SCH (20:11)
[2017-02-06] MEDS: oxyCODONE 5 MG Tab PO PRN ×4 (06:41→20:43)
[2017-02-06] MEDS: Furosemide 20 MG Tab PO SCH (08:08)
[2017-02-06] MEDS: Piperacillin/Tazobactam 4.5 GM in Sodium Chloride 0.9% 100 ML IV SCH ×3 (08:08→19:31)
[2017-02-06] MEDS: Omeprazole 20 MG Cap.CR PO SCH (08:08)
[2017-02-06] MEDS: Finasteride 5 MG Tab PO SCH (08:08)
[2017-02-06] MEDS: Enoxaparin 40 MG/0.4 ML Syringe SUBCUT SCH (08:08)
[2017-02-06] MEDS: metFORMIN 500 MG Tab PO SCH ×2 (08:08→17:42)
[2017-02-06] MEDS: Sodium Chloride 0.9% 1,000 ML IV SCH ×2 (08:16→19:31)
[2017-02-06] MEDS: SYMBICORT 160-4.5MCG INH SCH ×2 (08:21→21:07)
[2017-02-06] MEDS: Tiotropium Inhaler 18 MCG Inhalation Powder Cap Kit of 5 INH SCH (08:21)
--- NOTE | 2017-02-06 08:22 | PCM.PN ---
- General Info Date of Service: 02/06/17 Admission Dx/Problem (Free Text): The patient was admitted out of concern for syncopal episodes as well as multiple falls over several days. Subjective Update: the patient was changed to inpatient status from observation. Functional Status: Reports: pain controlled. Denies: tolerating diet - Review of Systems General: Reports: Weakness, Fatigue. Denies: Appetite HEENT: Reports: no symptoms Pulmonary: Reports: shortness of breath, pleuritic chest pain, cough Cardiovascular: Reports: Lightheadedness Gastrointestinal: Reports: Vomiting Genitourinary: Reports: no symptoms Musculoskeletal: Reports: back pain Skin: Reports: bruising Neurological: Reports: No Symptoms Psychiatric: Reports: no symptoms - Patient Data Vitals - most recent: Last Vital Signs Temp 36.5 C 02/06/17 04:00 Pulse 118 H 02/06/17 04:00 Resp 19 02/06/17 04:00 BP 91/53 L 02/06/17 04:00 Pulse Ox 93 L 02/06/17 08:00 Weight - most recent: 78.063 kg I&O - last 24 hours: Intake & Output 02/05/17 02/06/17 02/06/17 22:59 06:59 14:59 Intake Total 1721 1250 Output Total 725 Balance 996 1250 Lab Results last 24 hrs: Laboratory Results - last 24 hr 02/05/17 02/05/17 02/06/17 Range/Units 16:35 20:10 04:34 WBC 10.24 (4.0-11.0) K/uL RBC 3.84 L (4.50-5.90) M/uL Hgb 11.2 L (13.0-17.0) g/dL Hct 34.8 L (38.0-50.0) % MCV 90.6 (80.0-98.0) fL MCH 29.2 (27.0-32.0) pg MCHC 32.2 (31.0-37.0) g/dL RDW Std Deviation 50.9 (28.0-62.0) fl RDW Coeff of Angie 15 (11.0-15.0) % Plt Count 235 (150-400) K/uL MPV 9.10 (7.40-12.00) fL Neut % (Auto) 84.0 H (48.0-80.0) % Lymph % (Auto) 6.3 L (16.0-40.0) % [place] % (Auto) 9.5 (0.0-15.0) % Eos % (Auto) 0.0 (0.0-7.0) % Baso % (Auto) 0.2 (0.0-1.5) % Neut # (Auto) 8.6 H (1.4-5.7) K/uL Lymph # (Auto) 0.6 (0.6-2.4) K/uL [place] # (Auto) 1.0 H (0.0-0.8) K/uL Eos # (Auto) 0.0 (0.0-0.7) K/uL Baso # (Auto) 0.0 (0.0-0.1) K/uL Nucleated RBC % 0.0 /100WBC Nucleated RBCs # 0 K/uL POC Glucose 113 H 158 H (60-110) mg/dL // Range/Units 06:09 WBC (4.0-11.0) K/uL RBC (4.50-5.90) M/uL Hgb (13.0-17.0) g/dL Hct (38.0-50.0) % MCV (80.0-98.0) fL MCH (27.0-32.0) pg MCHC (31.0-37.0) g/dL RDW Std Deviation (28.0-62.0) fl RDW Coeff of Angie (11.0-15.0) % Plt Count (150-400) K/uL MPV (7.40-12.00) fL Neut % (Auto) (48.0-80.0) % Lymph % (Auto) (16.0-40.0) % [place] % (Auto) (0.0-15.0) % Eos % (Auto) (0.0-7.0) % Baso % (Auto) (0.0-1.5) % Neut # (Auto) (1.4-5.7) K/uL Lymph # (Auto) (0.6-2.4) K/uL [place] # (Auto) (0.0-0.8) K/uL Eos # (Auto) (0.0-0.7) K/uL Baso # (Auto) (0.0-0.1) K/uL Nucleated RBC % /100WBC Nucleated RBCs # K/uL POC Glucose 143 H (60-110) mg/dL Med Orders - Current: Current Medications Acetaminophen (Tylenol) 650 mg PO Q4H PRN PRN Reason: Pain (Mild 1-3)/fever Last Admin: 02/05/17 12:17 Dose: 650 mg Albuterol/Ipratropium (Duoneb 3.0-0.5 Mg/3 Ml) 3 ml NEB Q4HRRT [facility] Enoxaparin Sodium (Lovenox) 40 mg SUBCUT DAILY [facility] Last Admin: 02/06/17 08:08 Dose: 40 mg Finasteride (Proscar) 5 mg PO DAILY [facility] Last Admin: 02/06/17 08:08 Dose: 5 mg Furosemide (Lasix) 20 mg PO DAILY [facility] Last Admin: 02/06/17 08:08 Dose: 20 mg Sodium Chloride (Normal Saline) 1,000 mls @ 125 mls/hr IV ASDIRECTED [facility] Last Admin: 02/06/17 08:16 Dose: 125 mls/hr Vancomycin HCl 1,250 mg/ (Sodium Chloride) 250 mls @ 166.667 mls/hr IV Q12H [facility] Last Admin: 02/06/17 00:06 Dose: 166.667 mls/hr Piperacillin Sod/Tazobactam (Sod 4.5 gm/ Sodium Chloride) 100 mls @ 100 mls/hr IV Q6H [facility] Last Admin: 02/06/17 08:08 Dose: 100 mls/hr Metformin HCl (Glucophage) 1,500 mg PO BID [facility] Last Admin: 02/06/17 08:08 Dose: 1,500 mg Omeprazole (Omeprazole) 20 mg PO DAILY [facility] Last Admin: 02/06/17 08:08 Dose: 20 mg Ondansetron HCl (Zofran Odt) 4 mg PO Q4H PRN PRN Reason: nausea, able to take PO Last Admin: 02/06/17 08:08 Dose: 4 mg Oxycodone HCl (Oxycontin) 40 mg PO BEDTIME PRN PRN Reason: Pain (severe 7-10) Last Admin: 02/05/17 19:13 Dose: 40 mg Oxycodone HCl (Oxycodone) 5 mg PO Q4H PRN PRN Reason: Breakthrough Pain Last Admin: 02/06/17 06:41 Dose: 5 mg Symbicort 160-4.5mcg 1 each INH BID [facility] Last Admin: 02/05/17 20:11 Dose: 1 each Sertraline HCl (Zoloft) 50 mg PO BEDTIME HARPAL Last Admin: 02/05/17 20:11 Dose: 50 mg Sodium Chloride (Saline Flush) 10 ml FLUSH ASDIRECTED PRN PRN Reason: Keep Vein Open Last Admin: 02/04/17 12:06 Dose: 10 ml Sodium Chloride (Saline Flush) 2.5 ml FLUSH ASDIRECTED PRN PRN Reason: Keep Vein Open Last Admin: 02/04/17 12:07 Dose: 2.5 ml Tamsulosin HCl (Flomax) 0.4 mg PO BEDTIME HARPAL Last Admin: 02/05/17 20:11 Dose: 0.4 mg Temazepam (Restoril) 15 mg PO BEDTIME PRN PRN Reason: Sleep Last Admin: 02/04/17 18:09 Dose: 15 mg Tiotropium [place] (Spiriva Handihaler) 18 mcg INH DAILY [facility] Last Admin: 02/05/17 08:03 Dose: 1 cap Trazodone HCl (Trazodone) 100 mg PO BEDTIME [facility] Last Admin: 02/05/17 20:11 Dose: Not Given Vancomycin HCl (Pharmacy To Dose - Vancomycin) 1 dose .XX ASDIRECTED [facility] Discontinued Medications Albuterol/Ipratropium (Duoneb 3.0-0.5 Mg/3 Ml) 3 ml NEB Q4HRRT PRN PRN Reason: Shortness Of Breath/wheezing Last Admin: 02/05/17 17:49 Dose: 3 ml Sodium Chloride (Normal Saline) 1,000 mls @ 999 mls/hr IV STAT ONE Stop: 02/04/17 12:31 Last Admin: 02/04/17 12:05 Dose: 999 mls/hr Azithromycin 500 mg/ Sodium (Chloride) 250 mls @ 250 mls/hr IV Q24H [facility] Last Admin: 02/05/17 16:24 Dose: 250 mls/hr Vancomycin HCl 1,250 mg/ (Dextrose/Water) 250 mls @ 166.667 mls/hr IV Q12H [facility] Last Admin: 02/05/17 00:37 Dose: 166.667 mls/hr Ketorolac Tromethamine (Toradol) 15 mg IVPUSH STAT ONE Stop: 02/04/17 13:38 Last Admin: 02/04/17 13:42 Dose: 15 mg - Exam Quality Assessment: supplemental oxygen General: alert, cooperative, no acute distress HEENT: Pupils equal, Pupils reactive Neck: supple, trachea midline Lungs: Crackles, Rales. No: Normal respiratory effort Cardiovascular: Tachycardia Abdomen: no tenderness, abnormal bowel sounds Back Exam: Decreased Range of Motion Extremities: no edema Skin: rash, ecchymosis Neurological: no new focal deficit Psy/Mental Status: alert - Problem List & Annotations (1) Bacteremia due to Gram-positive bacteria SNOMED Code(s): 479740186838 Code(s): R78.81 - BACTEREMIA Status: Acute Priority: High Current Visit : Yes Annotation/Comment:: Zosyn 4.5 g IV every 6 hours added. (2) Syncope SNOMED Code(s): 219246277 Code(s): R55 - SYNCOPE AND COLLAPSE Status: Acute Priority: High Current Visit: Yes Qualifiers: Syncope type: unspecified Qualified Code(s): R55 - Syncope and collapse (3) Dehydration SNOMED Code(s): 11913278 Code(s): E86.0 - DEHYDRATION Status: Acute Priority: High Current Visit : Yes (4) Gait disturbance SNOMED Code(s): 25685544 Code(s): R26.9 - UNSPECIFIED ABNORMALITIES OF GAIT AND MOBILITY Status: Chronic Priority: Medium Current Visit: Yes (5) Smoker SNOMED Code(s): 51424836 Code(s): F17.200 - NICOTINE DEPENDENCE, UNSPECIFIED, UNCOMPLICATED Status: Chronic Priority: Medium Current Visit: Yes (6) Diabetes type 2, controlled SNOMED Code(s): 17792148 Code(s): E11.9 - TYPE 2 DIABETES MELLITUS WITHOUT COMPLICATIONS Status: Chronic Priority: High Current Visit: Yes Qualifiers: Diabetes mellitus complication status: without complication Diabetes mellitus prison insulin use: without intermediate school teacher use Qualified Code(s): E11.9 - Type 2 diabetes mellitus without complications (7) COPD, Severe chronic obstructive pulmonary disease SNOMED Code(s): 025416665 Code(s): J44.9 - CHRONIC OBSTRUCTIVE PULMONARY DISEASE, UNSPECIFIED Status : Chronic Priority: Medium Current Visit: Yes - Problem List Review Problem List Initiated/Reviewed/Updated: Yes - My Orders Last 24 Hours: My Active Orders 02/05/17 15:49 Chest 2V [CR] Routine 02/06/17 07:30 Piperacillin/Tazobactam [Piperacil-Tazobact] 4.5 gm Sodium Chloride 0.9% [ Normal Saline] 100 ml IV Q6H 02/06/17 07:35 Albuterol/Ipratropium [DuoNeb 3.0-0.5 MG/3 ML] 3 ml NEB Q4HRRT - Plan Plan:: February 04, 2017: The patient has a been admitted to observation. The patient likely has syncopal episode secondary to dehydration or volume contraction. The patient has not been eating well or drinking well within the past several days. The patient does have a lactic acid of 3.5 and he'll be placed on a lactic as protocol. I've also elected to fluid resuscitate the patient with normal saline at 125 mL per hour. Despite of the patient's lactic acid being elevated today do not suspect that this is secondary to an infection. The patient has no focal signs of infection and his white blood cell count is normal. I will treat the patient as a COPD exacerbation though with IV azithromycin 500 mg daily. The patient will also be kept on oxygen support to help keep his saturations above 92%. I've ordered PT OT for the patient to evaluate him and I have discussed with the patient the possibility of [facility] [place] [facility] as he does live by himself and is thus far not able to care for himself. The patient has been taking OxyContin according to his medical record 40 mg by mouth twice a day for his chronic pain secondary to his chronic pancreatitis. This will be continued. I've also ordered a CBC, comprehensive metabolic panel for the morning. The patient will also be placed on a diabetic diet and he'll have his blood sugars checked 3 times a day and at bedtime. I have continued most of the patient's home medications. Patient's treatment plan will be adjusted as information indicates. February 05, 2017: Patient has had 2 positive blood cultures for gram-positive cocci in clusters. The patient's azithromycin was discontinued and he was placed on vancomycin. I've also ordered a chest x-ray to help exclude staph pneumonia. Which would be a likely source of the patient's bacteremia. The patient's status is also been changed from observation to inpatient. I had a long discussion with the patient's daughter and she is concerned that he has exhibited a significant decline over the past several months. Patient's are him 2 years ago. Patient is currently in a DO NOT RESUSCITATE denied to be category. Patient's daughter is concerned that he has "given up" and likely will not do very well. The patient has had some breakthrough pain from his use of the OxyContin at night. I've ordered oxycodone 5 mg every 4 hours as necessary for breakthrough pain. I've also ordered PT OT for the patient. The patient does exhibit worsening of his ecchymoses on his arms and ordered a PT/INR which is subsequently proved to be normal. To continue with the patient's fluid support, Burrows catheter secondary to inability to urinate and his antibiotics for now. As of yesterday the patient's lactate has also normalized. The patient's treatment plan will be adjusted as information indicates. I will continue the patient's ADA diet. I've ordered testing in the morning. February 06, 2017: The patient is a 71-year-old gentleman who is being followed for gram-positive bacteremia. The patient has had a precipitous decline over the past 24-48 hours. I've had a long discussion with the patient's daughter and I feel that the patient's prognosis is poor at this point. I've also added Zosyn 4.5 g IV every 6 hours to help cover the patient's bacteremia. He'll be continued on vancomycin. I have reviewed the patient's x-ray from yesterday and in spite of the patient's worsening respiratory system the chest x-ray is essentially unchanged. The patient will also have albuterol/Atrovent SVNs to help with his respiratory issues. The patient will be given medication for her nausea vomiting and hopefully the patient will be able to tolerate diet. Patient will be followed very closely with his vital signs and I've ordered laboratory testing for tomorrow.
[2017-02-06] MEDS: Albuterol/Ipratropium 3.0-0.5 MG/3 ML Neb Soln NEB SCH ×4 (09:40→21:09)
--- NOTE | 2017-02-06 13:22 | CT ---
EXAM DATE: 02/05/17 PATIENT'S AGE: 71 Patient: SAMUEL HUNT Facility: [place], [place] Site . Site : 1945 Study: CT Head [id number]/28/2017 1:05:24 PM Ordering Physician: Az Guo Final Report: INDICATION: Trauma. Loss of consciousness TECHNIQUE: Noncontrast axial CT of the head is submitted. No comparisons. FINDINGS: Mild cerebral and cerebellar atrophy. The ventricles, sulci and gyri are of normal size, shape and contour for age and degree of atrophy. Midline structures are centrally located. No convincing evidence of suspicious intra- or extra-axial fluid collections. IMPRESSION: 1. No radiographic evidence of acute intracranial abnormalities. 2. Mild cerebral and cerebellar atrophy. Please note that all CT scans at this facility use dose modulation, iterative reconstruction, and/or weight-based dosing when appropriate to reduce radiation dose to as low as reasonably achievable. Dictated by Bradley Asencio MD @ Feb 04 2017 1:11PM (Electronic Signature) Report Signed by Proxy. [facility]
--- NOTE | 2017-02-06 13:23 | CR ---
EXAM DATE: 02/05/17 PATIENT'S AGE: 71 Patient: SAMUEL HUNT Facility: [place], [place] Site . Site : 1945 Study: XRay Chest [id number]/28/2017 1:06:04 PM Ordering Physician: Az Guo Final Report: HISTORY: Pain, shortness of breath. Technique: One view portable chest. Comparison: Chest x-ray 10/25/2017. Findings: Chronic volume loss the right hemithorax with irregular consolidation in the right lung apex not significantly changed from 10/18/2014 chest x-ray. Blunting of the right costophrenic angle, unchanged, likely pleural thickening. Postoperative or posttraumatic deformities of the right ribs. No focal consolidation on the left. No significant left pleural effusion. No pneumothorax. Cardiomediastinal silhouette is within normal limits. Impression: Chronic right lung volume loss with right apical consolidation similar to 2014 chest x-ray. Dictated by Fuad Lazar MD @ Feb 04 2017 1:44PM (Electronic Signature) Report Signed by Proxy. [facility]
--- NOTE | 2017-02-06 13:24 | CT ---
EXAM DATE: 02/05/17 PATIENT'S AGE: 71 Patient: SAMUEL HUNT Facility: [place], [place] Site . Site : 1945 Study: CT Abdomen/Pelvis [id number]/28/2017 1:08:22 PM Ordering Physician: Az Guo Final Report: HISTORY: Pain. Ileus. Technique: CT abdomen and pelvis without contrast. Comparison: CT abdomen and pelvis 10/28/2014. Findings: Abdomen: Post cholecystectomy. Volume loss in the left lobe of the liver with moderate left intrahepatic bile duct dilation, increased since 2015 CT. Common duct is dilated up to 1.6 cm, increased from prior. Post cholecystectomy. Pancreatic parenchymal atrophy with clustered calcifications in the area of the pancreatic head and uncinate process, unchanged. Calcified granuloma in the spleen. No adrenal nodules or thickening. Surgical clips around the stomach. No renal or ureteral calculi. No hydronephrosis. No dilated bowel. Midline ventral hernia containing nondilated segment of small bowel. At the same level to the right of midline there is a smaller ventral hernia containing a knuckle of nondilated small bowel (axial series 201 image 8) . Whorled appearance to the mesentery without findings of volvulus or closed loop small bowel obstruction. Appendix is normal. Appendix projects across the midline into the left lower quadrant. No ascites. No free intraperitoneal gas. No lymphadenopathy. Atherosclerosis. No abdominal aortic aneurysm. Pelvis: No free fluid. No lymphadenopathy. Musculoskeletal: Generalized osteopenia. No acute findings. Lower chest: Herniation of a small portion of the right lower lobe between lateral right ribs at the lung base. There is scarring of adjacent lung parenchyma. Mild left basilar atelectasis. Coronary artery calcifications. Impression: 1. Whorled appearance of the mesentery, similar to 10/28/2014 CT, without small bowel obstruction or volvulus. 2. Two ventral hernias containing short segments of nondilated small bowel. 3. Volume loss of the left lobe of the liver with left lobe intrahepatic bile duct dilation and extrahepatic bile duct dilation, increased since 10/28/2014. Post cholecystectomy. 4. Pancreatic volume loss with pancreatic calcifications, most conspicuous in the pancreatic head, favor sequela of chronic pancreatitis, unchanged. 5. Postoperative changes in the lower right hemithorax with herniation of a small portion of the right lower lobe between the ribs. Please note that all CT scans at this facility use dose modulation, iterative reconstruction, and/or weight-based dosing when appropriate to reduce radiation dose to as low as reasonably achievable. Dictated by Fuad Lazar MD @ Feb 04 2017 2:03PM (Electronic Signature) Report Signed by Proxy. [facility]
--- NOTE | 2017-02-06 14:15 | CR ---
EXAM DATE: 02/05/17 PATIENT'S AGE: 71 Patient: SAMUEL HUNT Facility: [place], [place] Site . Site : 1945 Study: XRay Chest [id number]/[id number] 6:33:38 PM Ordering Physician: Amber Basilio Final Report: HISTORY: Possible pneumonia. Comparison: 02/04/2017 and 10/28/2014. Findings: Right apical opacity and volume loss appear chronic. No acute airspace disease. Heart size and pulmonary vascularity are within normal limits. Chronic rib changes on the right. Dictated by Nirali Burnett MD @ Feb 05 2017 6:51PM (Electronic Signature) Report Signed by Proxy. [facility]
[2017-02-06] MEDS: Acetaminophen 325 MG Tab PO PRN (19:41)
[2017-02-06] MEDS: traZODone 50 MG Tab PO SCH (20:44)
[2017-02-06] MEDS: Tamsulosin 0.4 MG Cap.ER PO SCH (20:44)
[2017-02-06] MEDS: Sertraline 50 MG Tab PO SCH (20:45)
[2017-02-06] MEDS: oxyCODONE ER 20 MG TAB.ER PO PRN (22:28)
[2017-02-06] MEDS: Temazepam 15 MG Cap PO PRN (22:35)
[2017-02-06] MEDS ORDERED: Alum Hydrox/Mag Hydrox/Simeth 15 ML, Lidocaine 2% 5 ML PO ONE ×2 (23:40)
[2017-02-07] MEDS: Albuterol/Ipratropium 3.0-0.5 MG/3 ML Neb Soln NEB SCH ×6 (02:12→21:33)
[2017-02-07] MEDS: Piperacillin/Tazobactam 4.5 GM in Sodium Chloride 0.9% 100 ML IV SCH ×4 (02:14→18:57)
[2017-02-07 05:34] LABS: CHLORIDE,CL 112 mmol/L (98-110); SODIUM,NA 140 mmol/L (136-146)
[2017-02-07] MEDS: Sodium Chloride 0.9% 1,000 ML IV SCH ×2 (06:54→18:51)
[2017-02-07] MEDS: Omeprazole 20 MG Cap.CR PO SCH (08:44)
--- NOTE | 2017-02-07 08:47 | PCM.PN ---
- General Info Admission Dx/Problem (Free Text): The patient was admitted out of concern for syncopal episodes as well as multiple falls over several days. Subjective Update: the patient was changed to inpatient status from observation. the patient is doing somewhat better today. His pain is not as controlled as he would like. Functional Status: Denies: pain controlled - Review of Systems General: Reports: Weakness, Fatigue. Denies: Appetite HEENT: Reports: no symptoms Pulmonary: Reports: shortness of breath, pleuritic chest pain Cardiovascular: Reports: No Symptoms Gastrointestinal: Reports: Other (acid reflux) Genitourinary: Reports: no symptoms Musculoskeletal: Reports: no symptoms Skin: Reports: bruising Neurological: Reports: No Symptoms Psychiatric: Reports: no symptoms - Patient Data Vitals - most recent: Last Vital Signs Temp 36.5 C 02/07/17 04:00 Pulse 100 02/07/17 04:00 Resp 20 02/07/17 04:00 BP 98/52 L 02/07/17 04:00 Pulse Ox 97 02/07/17 04:00 Weight - most recent: 78.063 kg I&O - last 24 hours: Intake & Output 02/06/17 02/07/17 02/07/17 22:59 06:59 14:59 Intake Total 1754 1850 Output Total 275 500 Balance 1479 1350 Lab Results last 24 hrs: Laboratory Results - last 24 hr 02/06/17 02/06/17 02/06/17 Range/Units 11:41 16:34 21:13 WBC (4.0-11.0) K/uL RBC (4.50-5.90) M/uL Hgb (13.0-17.0) g/dL Hct (38.0-50.0) % MCV (80.0-98.0) fL MCH (27.0-32.0) pg MCHC (31.0-37.0) g/dL RDW Std Deviation (28.0-62.0) fl RDW Coeff of Angie (11.0-15.0) % Plt Count (150-400) K/uL MPV (7.40-12.00) fL Neut % (Auto) (48.0-80.0) % Lymph % (Auto) (16.0-40.0) % [place] % (Auto) (0.0-15.0) % Eos % (Auto) (0.0-7.0) % Baso % (Auto) (0.0-1.5) % Neut # (Auto) (1.4-5.7) K/uL Lymph # (Auto) (0.6-2.4) K/uL [place] # (Auto) (0.0-0.8) K/uL Eos # (Auto) (0.0-0.7) K/uL Baso # (Auto) (0.0-0.1) K/uL Nucleated RBC % /100WBC Nucleated RBCs # K/uL Sodium (136-146) mmol/L Potassium (3.5-5.1) mmol/L Chloride (98-110) mmol/L Carbon Dioxide (21-31) mmol/L BUN (6.0-23.0) mg/dL Creatinine (0.6-1.5) mg/dL Est Cr Clr Drug Dosing mL/min Estimated GFR (MDRD) ml/min Glucose (60-110) mg/dL POC Glucose 152 H 125 H 151 H (60-110) mg/dL Calcium (8.8-10.8) mg/dL Vancomycin Trough (5-15) ug/mL 02/06/17 02/07/17 02/07/17 Range/Units 23:12 04:59 04:59 WBC 9.41 (4.0-11.0) K/uL RBC 3.65 L (4.50-5.90) M/uL Hgb 10.6 L (13.0-17.0) g/dL Hct 33.6 L (38.0-50.0) % MCV 92.1 (80.0-98.0) fL MCH 29.0 (27.0-32.0) pg MCHC 31.5 (31.0-37.0) g/dL RDW Std Deviation 52.9 (28.0-62.0) fl RDW Coeff of Angie 16 H (11.0-15.0) % Plt Count 249 (150-400) K/uL MPV 8.50 (7.40-12.00) fL Neut % (Auto) 84.4 H (48.0-80.0) % Lymph % (Auto) 6.3 L (16.0-40.0) % [place] % (Auto) 9.2 (0.0-15.0) % Eos % (Auto) 0.0 (0.0-7.0) % Baso % (Auto) 0.1 (0.0-1.5) % Neut # (Auto) 7.9 H (1.4-5.7) K/uL Lymph # (Auto) 0.6 (0.6-2.4) K/uL [place] # (Auto) 0.9 H (0.0-0.8) K/uL Eos # (Auto) 0.0 (0.0-0.7) K/uL Baso # (Auto) 0.0 (0.0-0.1) K/uL Nucleated RBC % 0.0 /100WBC Nucleated RBCs # 0 K/uL Sodium 140 (136-146) mmol/L Potassium 4.4 (3.5-5.1) mmol/L Chloride 112 H (98-110) mmol/L Carbon Dioxide 16 L (21-31) mmol/L BUN 32 H (6.0-23.0) mg/dL Creatinine 0.9 (0.6-1.5) mg/dL Est Cr Clr Drug Dosing 81.43 mL/min Estimated GFR (MDRD) > 60.0 ml/min Glucose 178 H (60-110) mg/dL POC Glucose (60-110) mg/dL Calcium 7.8 L (8.8-10.8) mg/dL Vancomycin Trough 19.6 H (5-15) ug/mL 02/07/17 Range/Units 06:13 WBC (4.0-11.0) K/uL RBC (4.50-5.90) M/uL Hgb (13.0-17.0) g/dL Hct (38.0-50.0) % MCV (80.0-98.0) fL MCH (27.0-32.0) pg MCHC (31.0-37.0) g/dL RDW Std Deviation (28.0-62.0) fl RDW Coeff of Angie (11.0-15.0) % Plt Count (150-400) K/uL MPV (7.40-12.00) fL Neut % (Auto) (48.0-80.0) % Lymph % (Auto) (16.0-40.0) % [place] % (Auto) (0.0-15.0) % Eos % (Auto) (0.0-7.0) % Baso % (Auto) (0.0-1.5) % Neut # (Auto) (1.4-5.7) K/uL Lymph # (Auto) (0.6-2.4) K/uL [place] # (Auto) (0.0-0.8) K/uL Eos # (Auto) (0.0-0.7) K/uL Baso # (Auto) (0.0-0.1) K/uL Nucleated RBC % /100WBC Nucleated RBCs # K/uL Sodium (136-146) mmol/L Potassium (3.5-5.1) mmol/L Chloride (98-110) mmol/L Carbon Dioxide (21-31) mmol/L BUN (6.0-23.0) mg/dL Creatinine (0.6-1.5) mg/dL Est Cr Clr Drug Dosing mL/min Estimated GFR (MDRD) ml/min Glucose (60-110) mg/dL POC Glucose 168 H (60-110) mg/dL Calcium (8.8-10.8) mg/dL Vancomycin Trough (5-15) ug/mL Med Orders - Current: Current Medications Acetaminophen (Tylenol) 650 mg PO Q4H PRN PRN Reason: Pain (Mild 1-3)/fever Last Admin: 02/06/17 19:41 Dose: 650 mg Albuterol/Ipratropium (Duoneb 3.0-0.5 Mg/3 Ml) 3 ml NEB Q4HRRT [facility] Last Admin: 02/07/17 05:54 Dose: 3 ml Enoxaparin Sodium (Lovenox) 40 mg SUBCUT DAILY [facility] Last Admin: 02/06/17 08:08 Dose: 40 mg Finasteride (Proscar) 5 mg PO DAILY [facility] Last Admin: 02/06/17 08:08 Dose: 5 mg Furosemide (Lasix) 20 mg PO DAILY [facility] Last Admin: 02/06/17 08:08 Dose: 20 mg Sodium Chloride (Normal Saline) 1,000 mls @ 125 mls/hr IV ASDIRECTED [facility] Last Admin: 02/07/17 06:54 Dose: 125 mls/hr Vancomycin HCl 1,250 mg/ (Sodium Chloride) 250 mls @ 166.667 mls/hr IV Q12H [facility] Last Admin: 02/07/17 00:48 Dose: 166.667 mls/hr Piperacillin Sod/Tazobactam (Sod 4.5 gm/ Sodium Chloride) 100 mls @ 100 mls/hr IV Q6H [facility] Last Admin: 02/07/17 06:54 Dose: 100 mls/hr Metformin HCl (Glucophage) 1,500 mg PO BIDMEALS [facility] Last Admin: 02/06/17 17:42 Dose: 1,500 mg Omeprazole (Omeprazole) 20 mg PO ACBREAKFAST [facility] Ondansetron HCl (Zofran Odt) 4 mg PO Q4H PRN PRN Reason: nausea, able to take PO Last Admin: 02/06/17 08:08 Dose: 4 mg Oxycodone HCl (Oxycontin) 40 mg PO BEDTIME PRN PRN Reason: Pain (severe 7-10) Last Admin: 02/06/17 22:28 Dose: 40 mg Oxycodone HCl (Oxycodone) 10 mg PO Q4H PRN PRN Reason: Breakthrough Pain Symbicort 160-4.5mcg 1 each INH BID [facility] Last Admin: 02/06/17 21:07 Dose: 1 each Sertraline HCl (Zoloft) 50 mg PO BEDTIME [facility] Last Admin: 02/06/17 20:45 Dose: 50 mg Sodium Chloride (Saline Flush) 10 ml FLUSH ASDIRECTED PRN PRN Reason: Keep Vein Open Last Admin: 02/04/17 12:06 Dose: 10 ml Sodium Chloride (Saline Flush) 2.5 ml FLUSH ASDIRECTED PRN PRN Reason: Keep Vein Open Last Admin: 02/04/17 12:07 Dose: 2.5 ml Tamsulosin HCl (Flomax) 0.4 mg PO BEDTIME [facility] Last Admin: 02/06/17 20:44 Dose: 0.4 mg Temazepam (Restoril) 15 mg PO BEDTIME PRN PRN Reason: Sleep Last Admin: 02/06/17 22:35 Dose: 15 mg Tiotropium [place] (Spiriva Handihaler) 18 mcg INH DAILY [facility] Last Admin: 02/06/17 08:21 Dose: 1 cap Trazodone HCl (Trazodone) 100 mg PO BEDTIME [facility] Last Admin: 02/06/17 20:44 Dose: 100 mg Vancomycin HCl (Pharmacy To Dose - Vancomycin) 1 dose .XX ASDIRECTED [facility] Discontinued Medications Albuterol/Ipratropium (Duoneb 3.0-0.5 Mg/3 Ml) 3 ml NEB Q4HRRT PRN PRN Reason: Shortness Of Breath/wheezing Last Admin: 02/05/17 17:49 Dose: 3 ml Al Hydroxide/Mg Hydroxide 15 (ml/ Lidocaine HCl 5 ml) 0 ml PO ONETIME ONE Stop: 02/06/17 23:41 Last Admin: 02/07/17 00:04 Dose: 20 each Sodium Chloride (Normal Saline) 1,000 mls @ 999 mls/hr IV STAT ONE Stop: 02/04/17 12:31 Last Admin: 02/04/17 12:05 Dose: 999 mls/hr Azithromycin 500 mg/ Sodium (Chloride) 250 mls @ 250 mls/hr IV Q24H [facility] Last Admin: 02/05/17 16:24 Dose: 250 mls/hr Vancomycin HCl 1,250 mg/ (Dextrose/Water) 250 mls @ 166.667 mls/hr IV Q12H [facility] Last Admin: 02/05/17 00:37 Dose: 166.667 mls/hr Ketorolac Tromethamine (Toradol) 15 mg IVPUSH STAT ONE Stop: 02/04/17 13:38 Last Admin: 02/04/17 13:42 Dose: 15 mg Metformin HCl (Glucophage) 1,500 mg PO BID [facility] Last Admin: 02/06/17 08:08 Dose: 1,500 mg Omeprazole (Omeprazole) 20 mg PO DAILY [facility] Last Admin: 02/06/17 08:08 Dose: 20 mg Oxycodone HCl (Oxycodone) 5 mg PO Q4H PRN PRN Reason: Breakthrough Pain Last Admin: 02/06/17 20:43 Dose: 5 mg - Exam Quality Assessment: supplemental oxygen General: alert, oriented, no acute distress HEENT: Pupils equal, Pupils reactive Neck: supple, trachea midline Lungs: Rales, Rhonchi (widely scattered) Cardiovascular: Regular Rate, Regular Rhythm Abdomen: bowel sounds present, soft Back Exam: Decreased Range of Motion Extremities: other (multiple ecchymoses) Skin: ecchymosis Psy/Mental Status: alert, normal affect - Problem List & Annotations (1) Bacteremia due to Gram-positive bacteria SNOMED Code(s): 585454493338 Code(s): R78.81 - BACTEREMIA Status: Acute Priority: High Current Visit : Yes Annotation/Comment:: blood cultures positive for MSSA. Zosyn 4.5 g IV every 6 hours added. (2) Syncope SNOMED Code(s): 929687520 Code(s): R55 - SYNCOPE AND COLLAPSE Status: Acute Priority: High Current Visit: Yes Qualifiers: Syncope type: unspecified Qualified Code(s): R55 - Syncope and collapse (3) Dehydration SNOMED Code(s): 81237746 Code(s): E86.0 - DEHYDRATION Status: Acute Priority: High Current Visit : Yes (4) Gait disturbance SNOMED Code(s): 01124210 Code(s): R26.9 - UNSPECIFIED ABNORMALITIES OF GAIT AND MOBILITY Status: Chronic Priority: Medium Current Visit: Yes (5) Smoker SNOMED Code(s): 66622595 Code(s): F17.200 - NICOTINE DEPENDENCE, UNSPECIFIED, UNCOMPLICATED Status: Chronic Priority: Medium Current Visit: Yes (6) Diabetes type 2, controlled SNOMED Code(s): 25129615 Code(s): E11.9 - TYPE 2 DIABETES MELLITUS WITHOUT COMPLICATIONS Status: Chronic Priority: High Current Visit: Yes Qualifiers: Diabetes mellitus complication status: without complication Diabetes mellitus longterm insulin use: without exterminator helper termite use Qualified Code(s): E11.9 - Type 2 diabetes mellitus without complications (7) COPD, Severe chronic obstructive pulmonary disease SNOMED Code(s): 500672277 Code(s): J44.9 - CHRONIC OBSTRUCTIVE PULMONARY DISEASE, UNSPECIFIED Status : Chronic Priority: Medium Current Visit: Yes - Problem List Review Problem List Initiated/Reviewed/Updated: Yes - My Orders Last 24 Hours: My Active Orders 02/06/17 17:00 metFORMIN [Glucophage] 1,500 mg PO BIDMEALS 02/07/17 07:30 Omeprazole 20 mg PO ACBREAKFAST 02/07/17 08:17 oxyCODONE 10 mg PO Q4H PRN - Plan Plan:: February 04, 2017: The patient has a been admitted to observation. The patient likely has syncopal episode secondary to dehydration or volume contraction. The patient has not been eating well or drinking well within the past several days. The patient does have a lactic acid of 3.5 and he'll be placed on a lactic as protocol. I've also elected to fluid resuscitate the patient with normal saline at 125 mL per hour. Despite of the patient's lactic acid being elevated today do not suspect that this is secondary to an infection. The patient has no focal signs of infection and his white blood cell count is normal. I will treat the patient as a COPD exacerbation though with IV azithromycin 500 mg daily. The patient will also be kept on oxygen support to help keep his saturations above 92%. I've ordered PT OT for the patient to evaluate him and I have discussed with the patient the possibility of going [facility] as he does live by himself and is thus far not able to care for himself. The patient has been taking OxyContin according to his medical record 40 mg by mouth twice a day for his chronic pain secondary to his chronic pancreatitis. This will be continued. I've also ordered a CBC, comprehensive metabolic panel for the morning. The patient will also be placed on a diabetic diet and he'll have his blood sugars checked 3 times a day and at bedtime. I have continued most of the patient's home medications. Patient's treatment plan will be adjusted as information indicates. February 05, 2017: Patient has had 2 positive blood cultures for gram-positive cocci in clusters. The patient's azithromycin was discontinued and he was placed on vancomycin. I've also ordered a chest x-ray to help exclude staph pneumonia. Which would be a likely source of the patient's bacteremia. The patient's status is also been changed from observation to inpatient. I had a long discussion with the patient's daughter and she is concerned that he has exhibited a significant decline over the past several months. Patient's are him 2 years ago. Patient is currently in a DO NOT RESUSCITATE denied to be category. Patient's daughter is concerned that he has "given up" and likely will not do very well. The patient has had some breakthrough pain from his use of the OxyContin at night. I've ordered oxycodone 5 mg every 4 hours as necessary for breakthrough pain. I've also ordered PT OT for the patient. The patient does exhibit worsening of his ecchymoses on his arms and ordered a PT/INR which is subsequently proved to be normal. To continue with the patient's fluid support, Burrows catheter secondary to inability to urinate and his antibiotics for now. As of yesterday the patient's lactate has also normalized. The patient's treatment plan will be adjusted as information indicates. I will continue the patient's ADA diet. I've ordered testing in the morning. February 06, 2017: The patient is a 71-year-old gentleman who is being followed for gram-positive bacteremia. The patient has had a precipitous decline over the past 24-48 hours. I've had a long discussion with the patient's daughter and I feel that the patient's prognosis is poor at this point. I've also added Zosyn 4.5 g IV every 6 hours to help cover the patient's bacteremia. He'll be continued on vancomycin. I have reviewed the patient's x-ray from yesterday and in spite of the patient's worsening respiratory system the chest x-ray is essentially unchanged. The patient will also have albuterol/Atrovent SVNs to help with his respiratory issues. The patient will be given medication for her nausea vomiting and hopefully the patient will be able to tolerate diet. Patient will be followed very closely with his vital signs and I've ordered laboratory testing for tomorrow. February 07, 2017: The patient is a 71-year-old gentleman who is doing marginally better today. Patient is currently on Zosyn and vancomycin. His blood cultures were positive for methicillin sensitive staph aureus and staph epidermidis. The patient will be kept on this medication. The patient's pain is marginally controlled and I've increased his pain medication the oxycodone to 10 mg every 4 hours as needed for pain. Also he is on his home dose of OxyContin. The patient's hemoglobin has decreased to 10.6 g/dL and his hematocrit is at 33.6%. The patient is still exhibiting granulocytosis on the differential. The patient will be continued on his other medications as scheduled. The patient will have his treatment plan adjusted as conditions and information indicates. I've also ordered a CBC and a metabolic panel in the morning. Patient's treatment plan will be adjusted as conditions and information indicates
[2017-02-07] MEDS: metFORMIN 500 MG Tab PO SCH ×2 (09:01→16:53)
[2017-02-07] MEDS: oxyCODONE 5 MG Tab PO PRN ×3 (09:08→18:57)
[2017-02-07] MEDS: Tiotropium Inhaler 18 MCG Inhalation Powder Cap Kit of 5 INH SCH (09:41)
[2017-02-07] MEDS: SYMBICORT 160-4.5MCG INH SCH ×2 (09:41→20:31)
[2017-02-07] MEDS: Furosemide 20 MG Tab PO SCH (09:49)
[2017-02-07] MEDS: Finasteride 5 MG Tab PO SCH (09:55)
[2017-02-07] MEDS: Enoxaparin 40 MG/0.4 ML Syringe SUBCUT SCH (10:02)
[2017-02-07] MEDS: Morphine 2 MG/ML Syringe IVPUSH PRN ×2 (11:38→15:42)
[2017-02-07] MEDS ORDERED: Bisacodyl 10 MG Supp RECTAL PRN (12:46)
[2017-02-07] MEDS: Magnesium Hydroxide 400 MG/5 ML Susp 30 ML Cup PO SCH (13:32)
[2017-02-07] MEDS: Sertraline 50 MG Tab PO SCH (20:31)
[2017-02-07] MEDS: traZODone 50 MG Tab PO SCH (20:31)
[2017-02-07] MEDS: Tamsulosin 0.4 MG Cap.ER PO SCH (20:31)
[2017-02-08] MEDS: Piperacillin/Tazobactam 4.5 GM in Sodium Chloride 0.9% 100 ML IV SCH ×4 (01:51→18:48)
[2017-02-08] MEDS: Albuterol/Ipratropium 3.0-0.5 MG/3 ML Neb Soln NEB SCH ×6 (01:53→21:07)
[2017-02-08] MEDS: Morphine 2 MG/ML Syringe IVPUSH PRN ×3 (02:43→14:30)
[2017-02-08] MEDS: oxyCODONE 5 MG Tab PO PRN ×2 (04:01→15:49)
[2017-02-08] MEDS: Sodium Chloride 0.9% 1,000 ML IV SCH (06:31)
[2017-02-08] MEDS: Omeprazole 20 MG Cap.CR PO SCH (06:32)
[2017-02-08 08:30] LABS: CHLORIDE,CL 112 mmol/L (98-110); SODIUM,NA 141 mmol/L (136-146)
[2017-02-08] MEDS: metFORMIN 500 MG Tab PO SCH ×2 (08:42→17:16)
[2017-02-08] MEDS: Finasteride 5 MG Tab PO SCH (08:43)
[2017-02-08] MEDS: Magnesium Hydroxide 400 MG/5 ML Susp 30 ML Cup PO SCH (08:43)
[2017-02-08] MEDS: Furosemide 20 MG Tab PO SCH (08:43)
[2017-02-08] MEDS: Enoxaparin 40 MG/0.4 ML Syringe SUBCUT SCH (08:43)
[2017-02-08] MEDS: Tiotropium Inhaler 18 MCG Inhalation Powder Cap Kit of 5 INH SCH (09:26)
[2017-02-08] MEDS: SYMBICORT 160-4.5MCG INH SCH ×2 (09:26→21:07)
--- NOTE | 2017-02-08 11:23 | PCM.PN ---
- General Info Date of Service: 02/08/17 Admission Dx/Problem (Free Text): The patient was admitted out of concern for syncopal episodes as well as multiple falls over several days. Subjective Update: the patient was changed to inpatient status from observation. the patient is doing somewhat better today. His pain is not as controlled as he would like. Functional Status: Reports: pain controlled - Review of Systems General: Reports: Weakness, Fatigue HEENT: Reports: no symptoms Pulmonary: Reports: shortness of breath, cough Cardiovascular: Denies: Chest Pain Gastrointestinal: Reports: No symptoms Genitourinary: Reports: no symptoms Musculoskeletal: Reports: no symptoms Skin: Reports: no symptoms Neurological: Reports: No Symptoms Psychiatric: Reports: no symptoms - Patient Data Vitals - most recent: Last Vital Signs Temp 36.4 C 02/08/17 11:17 Pulse 94 02/08/17 11:17 Resp 18 02/08/17 11:17 BP 110/63 02/08/17 11:17 Pulse Ox 94 L 02/08/17 11:17 Weight - most recent: 78.063 kg I&O - last 24 hours: Intake & Output 02/07/17 02/08/17 02/08/17 22:59 06:59 14:59 Intake Total 1405 1850 Output Total 525 900 Balance 880 950 Lab Results last 24 hrs: Laboratory Results - last 24 hr 02/07/17 02/07/17 02/07/17 Range/Units 12:16 16:19 20:35 WBC (4.0-11.0) K/uL RBC (4.50-5.90) M/uL Hgb (13.0-17.0) g/dL Hct (38.0-50.0) % MCV (80.0-98.0) fL MCH (27.0-32.0) pg MCHC (31.0-37.0) g/dL RDW Std Deviation (28.0-62.0) fl RDW Coeff of Angie (11.0-15.0) % Plt Count (150-400) K/uL MPV (7.40-12.00) fL Neut % (Auto) (48.0-80.0) % Lymph % (Auto) (16.0-40.0) % Lanier % (Auto) (0.0-15.0) % Eos % (Auto) (0.0-7.0) % Baso % (Auto) (0.0-1.5) % Neut # (Auto) (1.4-5.7) K/uL Lymph # (Auto) (0.6-2.4) K/uL Lanier # (Auto) (0.0-0.8) K/uL Eos # (Auto) (0.0-0.7) K/uL Baso # (Auto) (0.0-0.1) K/uL Nucleated RBC % /100WBC Nucleated RBCs # K/uL Sodium (136-146) mmol/L Potassium (3.5-5.1) mmol/L Chloride (98-110) mmol/L Carbon Dioxide (21-31) mmol/L BUN (6.0-23.0) mg/dL Creatinine (0.6-1.5) mg/dL Est Cr Clr Drug Dosing mL/min Estimated GFR (MDRD) ml/min Glucose (60-110) mg/dL POC Glucose 158 H 145 H 154 H (60-110) mg/dL Calcium (8.8-10.8) mg/dL 02/08/17 02/08/17 02/08/17 Range/Units 06:25 07:48 07:48 WBC 7.04 (4.0-11.0) K/uL RBC 3.92 L (4.50-5.90) M/uL Hgb 11.6 L (13.0-17.0) g/dL Hct 35.7 L (38.0-50.0) % MCV 91.1 (80.0-98.0) fL MCH 29.6 (27.0-32.0) pg MCHC 32.5 (31.0-37.0) g/dL RDW Std Deviation 53.0 (28.0-62.0) fl RDW Coeff of Angie 16 H (11.0-15.0) % Plt Count 200 (150-400) K/uL MPV 8.90 (7.40-12.00) fL Neut % (Auto) 81.5 H (48.0-80.0) % Lymph % (Auto) 8.7 L (16.0-40.0) % Lanier % (Auto) 9.4 (0.0-15.0) % Eos % (Auto) 0.1 (0.0-7.0) % Baso % (Auto) 0.3 (0.0-1.5) % Neut # (Auto) 5.7 (1.4-5.7) K/uL Lymph # (Auto) 0.6 (0.6-2.4) K/uL Lanier # (Auto) 0.7 (0.0-0.8) K/uL Eos # (Auto) 0.0 (0.0-0.7) K/uL Baso # (Auto) 0.0 (0.0-0.1) K/uL Nucleated RBC % 0.0 /100WBC Nucleated RBCs # 0 K/uL Sodium 141 (136-146) mmol/L Potassium 4.1 (3.5-5.1) mmol/L Chloride 112 H (98-110) mmol/L Carbon Dioxide 18 L (21-31) mmol/L BUN 23 (6.0-23.0) mg/dL Creatinine 0.8 (0.6-1.5) mg/dL Est Cr Clr Drug Dosing 91.61 mL/min Estimated GFR (MDRD) > 60.0 ml/min Glucose 166 H (60-110) mg/dL POC Glucose 176 H (60-110) mg/dL Calcium 8.0 L (8.8-10.8) mg/dL 02/08/17 Range/Units 11:08 WBC (4.0-11.0) K/uL RBC (4.50-5.90) M/uL Hgb (13.0-17.0) g/dL Hct (38.0-50.0) % MCV (80.0-98.0) fL MCH (27.0-32.0) pg MCHC (31.0-37.0) g/dL RDW Std Deviation (28.0-62.0) fl RDW Coeff of Angie (11.0-15.0) % Plt Count (150-400) K/uL MPV (7.40-12.00) fL Neut % (Auto) (48.0-80.0) % Lymph % (Auto) (16.0-40.0) % Lanier % (Auto) (0.0-15.0) % Eos % (Auto) (0.0-7.0) % Baso % (Auto) (0.0-1.5) % Neut # (Auto) (1.4-5.7) K/uL Lymph # (Auto) (0.6-2.4) K/uL Lanier # (Auto) (0.0-0.8) K/uL Eos # (Auto) (0.0-0.7) K/uL Baso # (Auto) (0.0-0.1) K/uL Nucleated RBC % /100WBC Nucleated RBCs # K/uL Sodium (136-146) mmol/L Potassium (3.5-5.1) mmol/L Chloride (98-110) mmol/L Carbon Dioxide (21-31) mmol/L BUN (6.0-23.0) mg/dL Creatinine (0.6-1.5) mg/dL Est Cr Clr Drug Dosing mL/min Estimated GFR (MDRD) ml/min Glucose (60-110) mg/dL POC Glucose 158 H (60-110) mg/dL Calcium (8.8-10.8) mg/dL Med Orders - Current: Current Medications Acetaminophen (Tylenol) 650 mg PO Q4H PRN PRN Reason: Pain (Mild 1-3)/fever Last Admin: 02/06/17 19:41 Dose: 650 mg Albuterol/Ipratropium (Duoneb 3.0-0.5 Mg/3 Ml) 3 ml NEB Q4HRRT [facility] Last Admin: 02/08/17 09:26 Dose: 3 ml Bisacodyl (Dulcolax) 10 mg RECTAL DAILY PRN PRN Reason: Constipation Enoxaparin Sodium (Lovenox) 40 mg SUBCUT DAILY [facility] Last Admin: 02/08/17 08:43 Dose: 40 mg Finasteride (Proscar) 5 mg PO DAILY [facility] Last Admin: 02/08/17 08:43 Dose: 5 mg Furosemide (Lasix) 20 mg PO DAILY [facility] Last Admin: 02/08/17 08:43 Dose: 20 mg Sodium Chloride (Normal Saline) 1,000 mls @ 50 mls/hr IV ASDIRECTED [facility] Last Infusion: 02/08/17 10:57 Dose: 50 mls/hr Vancomycin HCl 1,250 mg/ (Sodium Chloride) 250 mls @ 166.667 mls/hr IV Q12H [facility] Last Infusion: 02/08/17 01:30 Dose: Infused Piperacillin Sod/Tazobactam (Sod 4.5 gm/ Sodium Chloride) 100 mls @ 100 mls/hr IV Q6H [facility] Last Admin: 02/08/17 06:32 Dose: 100 mls/hr Magnesium Hydroxide (Milk Of Magnesia) 30 ml PO DAILY [facility] Last Admin: 02/08/17 08:43 Dose: 30 ml Metformin HCl (Glucophage) 1,500 mg PO BIDMEALS [facility] Last Admin: 02/08/17 08:42 Dose: 1,500 mg Morphine Sulfate (Morphine) 2 mg IVPUSH Q4H PRN PRN Reason: Pain (moderate 4-6) Last Admin: 02/08/17 08:46 Dose: 2 mg Omeprazole (Omeprazole) 20 mg PO ACBREAKFAST [facility] Last Admin: 02/08/17 06:32 Dose: 20 mg Ondansetron HCl (Zofran Odt) 4 mg PO Q4H PRN PRN Reason: nausea, able to take PO Last Admin: 02/06/17 08:08 Dose: 4 mg Oxycodone HCl (Oxycontin) 40 mg PO BEDTIME PRN PRN Reason: Pain (severe 7-10) Last Admin: 02/06/17 22:28 Dose: 40 mg Oxycodone HCl (Oxycodone) 10 mg PO Q4H PRN PRN Reason: Breakthrough Pain Last Admin: 02/08/17 04:01 Dose: 10 mg Symbicort 160-4.5mcg 1 each INH BID [facility] Last Admin: 02/08/17 09:26 Dose: 1 each Sertraline HCl (Zoloft) 50 mg PO BEDTIME [facility] Last Admin: 02/07/17 20:31 Dose: 50 mg Sodium Chloride (Saline Flush) 10 ml FLUSH ASDIRECTED PRN PRN Reason: Keep Vein Open Last Admin: 02/04/17 12:06 Dose: 10 ml Sodium Chloride (Saline Flush) 2.5 ml FLUSH ASDIRECTED PRN PRN Reason: Keep Vein Open Last Admin: 02/04/17 12:07 Dose: 2.5 ml Tamsulosin HCl (Flomax) 0.4 mg PO BEDTIME [facility] Last Admin: 02/07/17 20:31 Dose: 0.4 mg Temazepam (Restoril) 15 mg PO BEDTIME PRN PRN Reason: Sleep Last Admin: 02/06/17 22:35 Dose: 15 mg Tiotropium [place] (Spiriva Handihaler) 18 mcg INH DAILY [facility] Last Admin: 02/08/17 09:26 Dose: 1 cap Trazodone HCl (Trazodone) 100 mg PO BEDTIME [facility] Last Admin: 02/07/17 20:31 Dose: 100 mg Vancomycin HCl (Pharmacy To Dose - Vancomycin) 1 dose .XX ASDIRECTED [facility] Discontinued Medications Albuterol/Ipratropium (Duoneb 3.0-0.5 Mg/3 Ml) 3 ml NEB Q4HRRT PRN PRN Reason: Shortness Of Breath/wheezing Last Admin: 02/05/17 17:49 Dose: 3 ml Al Hydroxide/Mg Hydroxide 15 (ml/ Lidocaine HCl 5 ml) 0 ml PO ONETIME ONE Stop: 02/06/17 23:41 Last Admin: 02/07/17 00:04 Dose: 20 each Sodium Chloride (Normal Saline) 1,000 mls @ 999 mls/hr IV STAT ONE Stop: 02/04/17 12:31 Last Admin: 02/04/17 12:05 Dose: 999 mls/hr Azithromycin 500 mg/ Sodium (Chloride) 250 mls @ 250 mls/hr IV Q24H [facility] Last Admin: 02/05/17 16:24 Dose: 250 mls/hr Vancomycin HCl 1,250 mg/ (Dextrose/Water) 250 mls @ 166.667 mls/hr IV Q12H [facility] Last Admin: 02/05/17 00:37 Dose: 166.667 mls/hr Ketorolac Tromethamine (Toradol) 15 mg IVPUSH STAT ONE Stop: 02/04/17 13:38 Last Admin: 02/04/17 13:42 Dose: 15 mg Metformin HCl (Glucophage) 1,500 mg PO BID [facility] Last Admin: 02/06/17 08:08 Dose: 1,500 mg Omeprazole (Omeprazole) 20 mg PO DAILY [facility] Last Admin: 02/06/17 08:08 Dose: 20 mg Oxycodone HCl (Oxycodone) 5 mg PO Q4H PRN PRN Reason: Breakthrough Pain Last Admin: 02/06/17 20:43 Dose: 5 mg - Exam Quality Assessment: supplemental oxygen General: alert, oriented, lethargic HEENT: Pupils equal, Pupils reactive Neck: supple, trachea midline Lungs: Decreased breath sounds, Rales Cardiovascular: Irregular Rhythm Abdomen: bowel sounds present, soft Extremities: no edema Skin: warm, dry, ecchymosis Neurological: no new focal deficit Psy/Mental Status: alert, normal affect - Problem List & Annotations (1) Bacteremia due to Gram-positive bacteria SNOMED Code(s): 386309696855 Code(s): R78.81 - BACTEREMIA Status: Acute Priority: High Current Visit : Yes Annotation/Comment:: blood cultures positive for MSSA. Zosyn 4.5 g IV every 6 hours added. (2) Syncope SNOMED Code(s): 747311659 Code(s): R55 - SYNCOPE AND COLLAPSE Status: Acute Priority: High Current Visit: Yes Qualifiers: Syncope type: unspecified Qualified Code(s): R55 - Syncope and collapse (3) Dehydration SNOMED Code(s): 64999628 Code(s): E86.0 - DEHYDRATION Status: Acute Priority: High Current Visit : Yes (4) Gait disturbance SNOMED Code(s): 48876685 Code(s): R26.9 - UNSPECIFIED ABNORMALITIES OF GAIT AND MOBILITY Status: Chronic Priority: Medium Current Visit: Yes (5) Smoker SNOMED Code(s): 39600875 Code(s): F17.200 - NICOTINE DEPENDENCE, UNSPECIFIED, UNCOMPLICATED Status: Chronic Priority: Medium Current Visit: Yes (6) Diabetes type 2, controlled SNOMED Code(s): 96381875 Code(s): E11.9 - TYPE 2 DIABETES MELLITUS WITHOUT COMPLICATIONS Status: Chronic Priority: High Current Visit: Yes Qualifiers: Diabetes mellitus complication status: without complication Diabetes mellitus care home insulin use: without terminal operator use Qualified Code(s): E11.9 - Type 2 diabetes mellitus without complications (7) COPD, Severe chronic obstructive pulmonary disease SNOMED Code(s): 763397450 Code(s): J44.9 - CHRONIC OBSTRUCTIVE PULMONARY DISEASE, UNSPECIFIED Status : Chronic Priority: Medium Current Visit: Yes - Problem List Review Problem List Initiated/Reviewed/Updated: Yes - My Orders Last 24 Hours: My Active Orders 02/07/17 11:15 Morphine 2 mg IVPUSH Q4H PRN 02/07/17 12:46 Bisacodyl [Dulcolax] 10 mg RECTAL DAILY PRN 02/07/17 13:00 Magnesium Hydroxide [Milk of Magnesia] 30 ml PO DAILY 02/08/17 10:50 Communication Order [RC] ROUTINE - Plan Plan:: February 04, 2017: The patient has a been admitted to observation. The patient likely has syncopal episode secondary to dehydration or volume contraction. The patient has not been eating well or drinking well within the past several days. The patient does have a lactic acid of 3.5 and he'll be placed on a lactic as protocol. I've also elected to fluid resuscitate the patient with normal saline at 125 mL per hour. Despite of the patient's lactic acid being elevated today do not suspect that this is secondary to an infection. The patient has no focal signs of infection and his white blood cell count is normal. I will treat the patient as a COPD exacerbation though with IV azithromycin 500 mg daily. The patient will also be kept on oxygen support to help keep his saturations above 92%. I've ordered PT OT for the patient to evaluate him and I have discussed with the patient the possibility of [facility] as he does live by himself and is thus far not able to care for himself. The patient has been taking OxyContin according to his medical record 40 mg by mouth twice a day for his chronic pain secondary to his chronic pancreatitis. This will be continued. I've also ordered a CBC, comprehensive metabolic panel for the morning. The patient will also be placed on a diabetic diet and he'll have his blood sugars checked 3 times a day and at bedtime. I have continued most of the patient's home medications. Patient's treatment plan will be adjusted as information indicates. February 05, 2017: Patient has had 2 positive blood cultures for gram-positive cocci in clusters. The patient's azithromycin was discontinued and he was placed on vancomycin. I've also ordered a chest x-ray to help exclude staph pneumonia. Which would be a likely source of the patient's bacteremia. The patient's status is also been changed from observation to inpatient. I had a long discussion with the patient's daughter and she is concerned that he has exhibited a significant decline over the past several months. Patient's are him 2 years ago. Patient is currently in a DO NOT RESUSCITATE denied to be category. Patient's daughter is concerned that he has "given up" and likely will not do very well. The patient has had some breakthrough pain from his use of the OxyContin at night. I've ordered oxycodone 5 mg every 4 hours as necessary for breakthrough pain. I've also ordered PT OT for the patient. The patient does exhibit worsening of his ecchymoses on his arms and ordered a PT/INR which is subsequently proved to be normal. To continue with the patient's fluid support, Burrows catheter secondary to inability to urinate and his antibiotics for now. As of yesterday the patient's lactate has also normalized. The patient's treatment plan will be adjusted as information indicates. I will continue the patient's ADA diet. I've ordered testing in the morning. February 06, 2017: The patient is a 71-year-old gentleman who is being followed for gram-positive bacteremia. The patient has had a precipitous decline over the past 24-48 hours. I've had a long discussion with the patient's daughter and I feel that the patient's prognosis is poor at this point. I've also added Zosyn 4.5 g IV every 6 hours to help cover the patient's bacteremia. He'll be continued on vancomycin. I have reviewed the patient's x-ray from yesterday and in spite of the patient's worsening respiratory system the chest x-ray is essentially unchanged. The patient will also have albuterol/Atrovent SVNs to help with his respiratory issues. The patient will be given medication for her nausea vomiting and hopefully the patient will be able to tolerate diet. Patient will be followed very closely with his vital signs and I've ordered laboratory testing for tomorrow. February 07, 2017: The patient is a 71-year-old gentleman who is doing marginally better today. Patient is currently on Zosyn and vancomycin. His blood cultures were positive for methicillin sensitive staph aureus and staph epidermidis. The patient will be kept on this medication. The patient's pain is marginally controlled and I've increased his pain medication the oxycodone to 10 mg every 4 hours as needed for pain. Also he is on his home dose of OxyContin. The patient's hemoglobin has decreased to 10.6 g/dL and his hematocrit is at 33.6%. The patient is still exhibiting granulocytosis on the differential. The patient will be continued on his other medications as scheduled. The patient will have his treatment plan adjusted as conditions and information indicates. I've also ordered a CBC and a metabolic panel in the morning. Patient's treatment plan will be adjusted as conditions and information indicates Feb 08, 2017: The patient is a 71-year-old gentleman who has been admitted out of concern for pneumonia and was noted to have MSSA bacteremia. The patient will be kept on his antibiotics for now. His been very slow to recover. Overall , it is somewhat improved. Patient's pain has been controlled and he says he feels better. The patient shows no signs of leukocytosis and the patient's vital signs have been stable although he has had some runs of A. fib with RVR but shouldn't soak or monitoring. The patient's heart rate is currently controlled and he is on anticoagulation therapy. I also had a long discussion with the patient's son and explained the prognosis. I suspect that the patient may make some improvement to the point that he may be appropriate to discharge to care home care nursing. For now the patient will continue with the diabetic diet as tolerated and his blood sugars will be checked accordingly. The patient will still be maintained on oxygen support. I've ordered chest x-ray for the morning as well as a CBC and a comprehensive metabolic panel. The patient's treatment plan will be adjusted accordingly.
[2017-02-08] MEDS: Metoprolol Succinate 25 MG Tab.ER PO SCH (18:48)
[2017-02-08] MEDS: Sertraline 50 MG Tab PO SCH (20:58)
[2017-02-08] MEDS: Tamsulosin 0.4 MG Cap.ER PO SCH (20:59)
[2017-02-08] MEDS: traZODone 50 MG Tab PO SCH (21:00)
[2017-02-08] MEDS: oxyCODONE ER 20 MG TAB.ER PO PRN (21:02)
[2017-02-09] MEDS: Piperacillin/Tazobactam 4.5 GM in Sodium Chloride 0.9% 100 ML IV SCH ×4 (00:45→20:29)
[2017-02-09] MEDS: Sodium Chloride 0.9% 1,000 ML IV SCH (00:49)
[2017-02-09] MEDS: Albuterol/Ipratropium 3.0-0.5 MG/3 ML Neb Soln NEB SCH ×6 (01:00→22:02)
[2017-02-09 05:27] LABS: CHLORIDE,CL 109 mmol/L (98-110); SODIUM,NA 141 mmol/L (136-146)
[2017-02-09] MEDS: Omeprazole 20 MG Cap.CR PO SCH (06:35)
[2017-02-09] MEDS: metFORMIN 500 MG Tab PO SCH ×2 (08:15→17:26)
[2017-02-09] MEDS: Finasteride 5 MG Tab PO SCH (08:15)
[2017-02-09] MEDS: oxyCODONE 5 MG Tab PO PRN ×4 (08:15→23:59)
[2017-02-09] MEDS: Magnesium Hydroxide 400 MG/5 ML Susp 30 ML Cup PO SCH (08:22)
[2017-02-09] MEDS: Metoprolol Succinate 25 MG Tab.ER PO SCH (08:22)
[2017-02-09] MEDS: Furosemide 20 MG Tab PO SCH (08:22)
[2017-02-09] MEDS: Enoxaparin 40 MG/0.4 ML Syringe SUBCUT SCH (08:23)
[2017-02-09] MEDS: SYMBICORT 160-4.5MCG INH SCH ×2 (09:45→22:02)
[2017-02-09] MEDS: Tiotropium Inhaler 18 MCG Inhalation Powder Cap Kit of 5 INH SCH (09:46)
[2017-02-09] MEDS: Morphine 2 MG/ML Syringe IVPUSH PRN ×3 (10:13→20:20)
[2017-02-09] MEDS ORDERED: Potassium Chloride 20 MEQ Tab.ER PO ONE (10:52)
--- NOTE | 2017-02-09 11:27 | PCM.PN ---
- General Info Date of Service: 02/09/17 Admission Dx/Problem (Free Text): The patient was admitted out of concern for syncopal episodes as well as multiple falls over several days. Subjective Update: the patient was changed to inpatient status from observation. the patient is doing somewhat better today. His pain is not as controlled as he would like. Functional Status: Denies: pain controlled - Review of Systems General: Reports: Weakness, Fatigue HEENT: Reports: no symptoms Pulmonary: Reports: shortness of breath, pleuritic chest pain, cough, sputum Cardiovascular: Reports: No Symptoms Gastrointestinal: Reports: No symptoms Genitourinary: Reports: no symptoms Musculoskeletal: Reports: back pain Skin: Reports: bruising Neurological: Reports: Headache Psychiatric: Reports: no symptoms - Patient Data Vitals - most recent: Last Vital Signs Temp 36.6 C 02/09/17 08:06 Pulse 94 02/09/17 08:22 Resp 30 H 02/09/17 08:06 BP 126/67 02/09/17 08:22 Pulse Ox 95 02/09/17 08:06 Weight - most recent: 78.063 kg I&O - last 24 hours: Intake & Output 02/08/17 02/09/17 02/09/17 22:59 06:59 14:59 Intake Total 600 2150 Output Total 1000 1500 Balance -400 650 Lab Results last 24 hrs: Laboratory Results - last 24 hr 02/08/17 02/08/17 02/09/17 Range/Units 16:40 22:32 04:48 WBC (4.0-11.0) K/uL RBC (4.50-5.90) M/uL Hgb (13.0-17.0) g/dL Hct (38.0-50.0) % MCV (80.0-98.0) fL MCH (27.0-32.0) pg MCHC (31.0-37.0) g/dL RDW Std Deviation (28.0-62.0) fl RDW Coeff of Angie (11.0-15.0) % Plt Count (150-400) K/uL MPV (7.40-12.00) fL Add Manual Diff Neutrophils % (Manual) (48.0-80.0) % Band Neutrophils % % Lymphocytes % (Manual) (16.0-40.0) % Monocytes % (Manual) (0.0-15.0) % Basophils % (Manual) (0.0-1.5) % Nucleated RBC % /100WBC Absolute Seg Neuts Band Neutrophils # Lymphocytes # (Manual) Monocytes # (Manual) Basophils # (Manual) Nucleated RBCs # K/uL Sodium 141 (136-146) mmol/L Potassium 3.4 L (3.5-5.1) mmol/L Chloride 109 (98-110) mmol/L Carbon Dioxide 20 L (21-31) mmol/L BUN 17 (6.0-23.0) mg/dL Creatinine 0.7 (0.6-1.5) mg/dL Est Cr Clr Drug Dosing 104.70 mL/min Estimated GFR (MDRD) > 60.0 ml/min Glucose 147 H (60-110) mg/dL POC Glucose 160 H 165 H (60-110) mg/dL Calcium 7.8 L (8.8-10.8) mg/dL Total Bilirubin 0.7 (0.1-1.5) mg/dL AST 14 (5-40) IU/L ALT 13 (8-54) IU/L Alkaline Phosphatase 64 (40-150) Total Protein 5.1 L (6.0-8.0) g/dL Albumin 2.7 L (3.4-4.8) g/dL Globulin 2.4 (2.0-3.5) g/dL Albumin/Globulin Ratio 1.1 L (1.3-2.8) 02/09/17 02/09/17 Range/Units 04:48 05:27 WBC 7.73 (4.0-11.0) K/uL RBC 3.48 L (4.50-5.90) M/uL Hgb 10.1 L (13.0-17.0) g/dL Hct 31.6 L (38.0-50.0) % MCV 90.8 (80.0-98.0) fL MCH 29.0 (27.0-32.0) pg MCHC 32.0 (31.0-37.0) g/dL RDW Std Deviation 52.2 (28.0-62.0) fl RDW Coeff of Angie 16 H (11.0-15.0) % Plt Count 265 (150-400) K/uL MPV 8.50 (7.40-12.00) fL Add Manual Diff YES Neutrophils % (Manual) 74 (48.0-80.0) % Band Neutrophils % 5 % Lymphocytes % (Manual) 14 L (16.0-40.0) % Monocytes % (Manual) 6 (0.0-15.0) % Basophils % (Manual) 1 (0.0-1.5) % Nucleated RBC % 0.0 /100WBC Absolute Seg Neuts 5.7 Band Neutrophils # 0.4 Lymphocytes # (Manual) 1.1 Monocytes # (Manual) 0.5 Basophils # (Manual) 0 Nucleated RBCs # 0 K/uL Sodium (136-146) mmol/L Potassium (3.5-5.1) mmol/L Chloride (98-110) mmol/L Carbon Dioxide (21-31) mmol/L BUN (6.0-23.0) mg/dL Creatinine (0.6-1.5) mg/dL Est Cr Clr Drug Dosing mL/min Estimated GFR (MDRD) ml/min Glucose (60-110) mg/dL POC Glucose 123 H (60-110) mg/dL Calcium (8.8-10.8) mg/dL Total Bilirubin (0.1-1.5) mg/dL AST (5-40) IU/L ALT (8-54) IU/L Alkaline Phosphatase (40-150) Total Protein (6.0-8.0) g/dL Albumin (3.4-4.8) g/dL Globulin (2.0-3.5) g/dL Albumin/Globulin Ratio (1.3-2.8) Med Orders - Current: Current Medications Acetaminophen (Tylenol) 650 mg PO Q4H PRN PRN Reason: Pain (Mild 1-3)/fever Last Admin: 02/06/17 19:41 Dose: 650 mg Albuterol/Ipratropium (Duoneb 3.0-0.5 Mg/3 Ml) 3 ml NEB Q4HRRT [facility] Last Admin: 02/09/17 09:46 Dose: 3 ml Bisacodyl (Dulcolax) 10 mg RECTAL DAILY PRN PRN Reason: Constipation Enoxaparin Sodium (Lovenox) 40 mg SUBCUT DAILY [facility] Last Admin: 02/09/17 08:23 Dose: 40 mg Finasteride (Proscar) 5 mg PO DAILY [facility] Last Admin: 02/09/17 08:15 Dose: 5 mg Furosemide (Lasix) 20 mg PO DAILY [facility] Last Admin: 02/09/17 08:22 Dose: 20 mg Sodium Chloride (Normal Saline) 1,000 mls @ 50 mls/hr IV ASDIRECTED [facility] Last Admin: 02/09/17 00:49 Dose: 50 mls/hr Piperacillin Sod/Tazobactam (Sod 4.5 gm/ Sodium Chloride) 100 mls @ 100 mls/hr IV Q6H [facility] Last Admin: 02/09/17 06:36 Dose: 100 mls/hr Vancomycin HCl 1,250 mg/ (Sodium Chloride) 250 mls @ 166.667 mls/hr IV Q12H [facility] Magnesium Hydroxide (Milk Of Magnesia) 30 ml PO DAILY [facility] Last Admin: 02/09/17 08:22 Dose: 30 ml Metformin HCl (Glucophage) 1,500 mg PO BIDMEALS [facility] Last Admin: 02/09/17 08:15 Dose: 1,500 mg Metoprolol Tartrate (Lopressor) 25 mg PO Q8H [facility] Morphine Sulfate (Morphine) 2 mg IVPUSH Q4H PRN PRN Reason: Pain (moderate 4-6) Last Admin: 02/09/17 10:13 Dose: 2 mg Omeprazole (Omeprazole) 20 mg PO ACBREAKFAST [facility] Last Admin: 02/09/17 06:35 Dose: 20 mg Ondansetron HCl (Zofran Odt) 4 mg PO Q4H PRN PRN Reason: nausea, able to take PO Last Admin: 02/06/17 08:08 Dose: 4 mg Oxycodone HCl (Oxycontin) 40 mg PO BEDTIME PRN PRN Reason: Pain (severe 7-10) Last Admin: 02/08/17 21:02 Dose: 40 mg Oxycodone HCl (Oxycodone) 10 mg PO Q4H PRN PRN Reason: Breakthrough Pain Last Admin: 02/09/17 08:15 Dose: 10 mg Symbicort 160-4.5mcg 1 each INH BID [facility] Last Admin: 02/09/17 09:45 Dose: 1 each Sertraline HCl (Zoloft) 50 mg PO BEDTIME [facility] Last Admin: 02/08/17 20:58 Dose: 50 mg Sodium Chloride (Saline Flush) 10 ml FLUSH ASDIRECTED PRN PRN Reason: Keep Vein Open Last Admin: 02/04/17 12:06 Dose: 10 ml Sodium Chloride (Saline Flush) 2.5 ml FLUSH ASDIRECTED PRN PRN Reason: Keep Vein Open Last Admin: 02/04/17 12:07 Dose: 2.5 ml Tamsulosin HCl (Flomax) 0.4 mg PO BEDTIME [facility] Last Admin: 02/08/17 20:59 Dose: 0.4 mg Temazepam (Restoril) 15 mg PO BEDTIME PRN PRN Reason: Sleep Last Admin: 02/06/17 22:35 Dose: 15 mg Tiotropium [place] (Spiriva Handihaler) 18 mcg INH DAILY [facility] Last Admin: 02/09/17 09:46 Dose: 1 ampule Trazodone HCl (Trazodone) 100 mg PO BEDTIME [facility] Last Admin: 02/08/17 21:00 Dose: 100 mg Vancomycin HCl (Pharmacy To Dose - Vancomycin) 1 dose .XX ASDIRECTED [facility] Discontinued Medications Albuterol/Ipratropium (Duoneb 3.0-0.5 Mg/3 Ml) 3 ml NEB Q4HRRT PRN PRN Reason: Shortness Of Breath/wheezing Last Admin: 02/05/17 17:49 Dose: 3 ml Al Hydroxide/Mg Hydroxide 15 (ml/ Lidocaine HCl 5 ml) 0 ml PO ONETIME ONE Stop: 02/06/17 23:41 Last Admin: 02/07/17 00:04 Dose: 20 each Sodium Chloride (Normal Saline) 1,000 mls @ 999 mls/hr IV STAT ONE Stop: 02/04/17 12:31 Last Admin: 02/04/17 12:05 Dose: 999 mls/hr Azithromycin 500 mg/ Sodium (Chloride) 250 mls @ 250 mls/hr IV Q24H [facility] Last Admin: 02/05/17 16:24 Dose: 250 mls/hr Vancomycin HCl 1,250 mg/ (Dextrose/Water) 250 mls @ 166.667 mls/hr IV Q12H [facility] Last Admin: 02/05/17 00:37 Dose: 166.667 mls/hr Vancomycin HCl 1,250 mg/ (Sodium Chloride) 250 mls @ 166.667 mls/hr IV Q12H [facility] Last Infusion: 02/08/17 01:30 Dose: Infused Ketorolac Tromethamine (Toradol) 15 mg IVPUSH STAT ONE Stop: 02/04/17 13:38 Last Admin: 02/04/17 13:42 Dose: 15 mg Metformin HCl (Glucophage) 1,500 mg PO BID [facility] Last Admin: 02/06/17 08:08 Dose: 1,500 mg Metoprolol Succinate (Toprol Xl) 25 mg PO DAILY [facility] Last Admin: 02/09/17 08:22 Dose: 25 mg Omeprazole (Omeprazole) 20 mg PO DAILY [facility] Last Admin: 02/06/17 08:08 Dose: 20 mg Oxycodone HCl (Oxycodone) 5 mg PO Q4H PRN PRN Reason: Breakthrough Pain Last Admin: 02/06/17 20:43 Dose: 5 mg Potassium Chloride (Klor-Con M20) 20 meq PO ONETIME ONE Stop: 02/09/17 10:53 Vancomycin HCl (Pharmacy To Dose - Vancomycin) 1 dose .XX ASDIRECTED [facility] - Exam Quality Assessment: supplemental oxygen (Tachypnenic) General: alert, oriented Lungs: Decreased breath sounds, Rales, Rhonchi (bi basilar) Abdomen: soft, no tenderness, no distension Extremities: no edema Skin: ecchymosis Neurological: no new focal deficit Psy/Mental Status: alert, normal affect - Problem List & Annotations (1) Ventricular tachyarrhythmia SNOMED Code(s): 36987641, 15555063 Code(s): I47.2 - VENTRICULAR TACHYCARDIA Status: Acute Priority: High Current Visit: Yes Annotation/Comment:: patient evaluated by cardiology. (2) Bacteremia due to Gram-positive bacteria SNOMED Code(s): 989912884902 Code(s): R78.81 - BACTEREMIA Status: Acute Priority: High Current Visit : Yes Annotation/Comment:: blood cultures positive for MSSA. Zosyn 4.5 g IV every 6 hours added. (3) Syncope SNOMED Code(s): 509895931 Code(s): R55 - SYNCOPE AND COLLAPSE Status: Acute Priority: High Current Visit: Yes Qualifiers: Syncope type: unspecified Qualified Code(s): R55 - Syncope and collapse (4) Dehydration SNOMED Code(s): 07392941 Code(s): E86.0 - DEHYDRATION Status: Acute Priority: High Current Visit : Yes (5) Gait disturbance SNOMED Code(s): 08430861 Code(s): R26.9 - UNSPECIFIED ABNORMALITIES OF GAIT AND MOBILITY Status: Chronic Priority: Medium Current Visit: Yes (6) Smoker SNOMED Code(s): 15883804 Code(s): F17.200 - NICOTINE DEPENDENCE, UNSPECIFIED, UNCOMPLICATED Status: Chronic Priority: Medium Current Visit: Yes (7) Diabetes type 2, controlled SNOMED Code(s): 04324774 Code(s): E11.9 - TYPE 2 DIABETES MELLITUS WITHOUT COMPLICATIONS Status: Chronic Priority: High Current Visit: Yes Qualifiers: Diabetes mellitus complication status: without complication Diabetes mellitus continuous churn buttermaker insulin use: without skilled nursing use Qualified Code(s): E11.9 - Type 2 diabetes mellitus without complications (8) COPD, Severe chronic obstructive pulmonary disease SNOMED Code(s): 382632347 Code(s): J44.9 - CHRONIC OBSTRUCTIVE PULMONARY DISEASE, UNSPECIFIED Status : Chronic Priority: Medium Current Visit: Yes - Problem List Review Problem List Initiated/Reviewed/Updated: Yes - My Orders Last 24 Hours: My Active Orders 02/08/17 10:50 Communication Order [RC] ROUTINE 02/08/17 14:42 Consult to Physician [CONS] Routine 02/08/17 14:43 Notify Provider Consults [RC] ASDIRECTED 02/09/17 08:00 CXR [Chest 1V Frontal] [CR] Routine 02/09/17 11:00 Vancomycin Pharmacy to Dose [Pharmacy to Dose - Vancomycin] 1 dose .XX ASDIRECTED 02/09/17 11:30 Vancomycin 1,250 mg Sodium Chloride 0.9% [Normal Saline] 250 ml IV Q12H 02/10/17 22:30 VANCOMYCIN TROUGH [CHEM] Routine - Plan Plan:: February 04, 2017: The patient has a been admitted to observation. The patient likely has syncopal episode secondary to dehydration or volume contraction. The patient has not been eating well or drinking well within the past several days. The patient does have a lactic acid of 3.5 and he'll be placed on a lactic as protocol. I've also elected to fluid resuscitate the patient with normal saline at 125 mL per hour. Despite of the patient's lactic acid being elevated today do not suspect that this is secondary to an infection. The patient has no focal signs of infection and his white blood cell count is normal. I will treat the patient as a COPD exacerbation though with IV azithromycin 500 mg daily. The patient will also be kept on oxygen support to help keep his saturations above 92%. I've ordered PT OT for the patient to evaluate him and I have discussed with the patient the possibility of going to [facility]led fdc as he does live by himself and is thus far not able to care for himself. The patient has been taking OxyContin according to his medical record 40 mg by mouth twice a day for his chronic pain secondary to his chronic pancreatitis. This will be continued. I've also ordered a CBC, comprehensive metabolic panel for the morning. The patient will also be placed on a diabetic diet and he'll have his blood sugars checked 3 times a day and at bedtime. I have continued most of the patient's home medications. Patient's treatment plan will be adjusted as information indicates. February 05, 2017: Patient has had 2 positive blood cultures for gram-positive cocci in clusters. The patient's azithromycin was discontinued and he was placed on vancomycin. I've also ordered a chest x-ray to help exclude staph pneumonia. Which would be a likely source of the patient's bacteremia. The patient's status is also been changed from observation to inpatient. I had a long discussion with the patient's daughter and she is concerned that he has exhibited a significant decline over the past several months. Patient's are him 2 years ago. Patient is currently in a DO NOT RESUSCITATE denied to be category. Patient's daughter is concerned that he has "given up" and likely will not do very well. The patient has had some breakthrough pain from his use of the OxyContin at night. I've ordered oxycodone 5 mg every 4 hours as necessary for breakthrough pain. I've also ordered PT OT for the patient. The patient does exhibit worsening of his ecchymoses on his arms and ordered a PT/INR which is subsequently proved to be normal. To continue with the patient's fluid support, Burrows catheter secondary to inability to urinate and his antibiotics for now. As of yesterday the patient's lactate has also normalized. The patient's treatment plan will be adjusted as information indicates. I will continue the patient's ADA diet. I've ordered testing in the morning. February 06, 2017: The patient is a 71-year-old gentleman who is being followed for gram-positive bacteremia. The patient has had a precipitous decline over the past 24-48 hours. I've had a long discussion with the patient's daughter and I feel that the patient's prognosis is poor at this point. I've also added Zosyn 4.5 g IV every 6 hours to help cover the patient's bacteremia. He'll be continued on vancomycin. I have reviewed the patient's x-ray from yesterday and in spite of the patient's worsening respiratory system the chest x-ray is essentially unchanged. The patient will also have albuterol/Atrovent SVNs to help with his respiratory issues. The patient will be given medication for her nausea vomiting and hopefully the patient will be able to tolerate diet. Patient will be followed very closely with his vital signs and I've ordered laboratory testing for tomorrow. February 07, 2017: The patient is a 71-year-old gentleman who is doing marginally better today. Patient is currently on Zosyn and vancomycin. His blood cultures were positive for methicillin sensitive staph aureus and staph epidermidis. The patient will be kept on this medication. The patient's pain is marginally controlled and I've increased his pain medication the oxycodone to 10 mg every 4 hours as needed for pain. Also he is on his home dose of OxyContin. The patient's hemoglobin has decreased to 10.6 g/dL and his hematocrit is at 33.6%. The patient is still exhibiting granulocytosis on the differential. The patient will be continued on his other medications as scheduled. The patient will have his treatment plan adjusted as conditions and information indicates. I've also ordered a CBC and a metabolic panel in the morning. Patient's treatment plan will be adjusted as conditions and information indicates Feb 08, 2017: The patient is a 71-year-old gentleman who has been admitted out of concern for pneumonia and was noted to have MSSA bacteremia. The patient will be kept on his antibiotics for now. His been very slow to recover. Overall , it is somewhat improved. Patient's pain has been controlled and he says he feels better. The patient shows no signs of leukocytosis and the patient's vital signs have been stable although he has had some runs of A. fib with RVR but shouldn't soak or monitoring. The patient's heart rate is currently controlled and he is on anticoagulation therapy. I also had a long discussion with the patient's son and explained the prognosis. I suspect that the patient may make some improvement to the point that he may be appropriate to discharge to continuous churn buttermaker care nursing. For now the patient will continue with the diabetic diet as tolerated and his blood sugars will be checked accordingly. The patient will still be maintained on oxygen support. I've ordered chest x-ray for the morning as well as a CBC and a comprehensive metabolic panel. The patient's treatment plan will be adjusted accordingly. Feb 09, 2017: The patient is a 71-year-old gentleman who has had worsening of his pneumonia by chest x-ray as well as his symptoms. The patient also has exhibited runs of ventricular tachycardia and he has been evaluated by cardiology and placed on beta priti to help rate control the patient. Also I' ve elected to place patient back on vancomycin pharmacy to dose and I have discussed with the pharmacist the necessity for placing the patient on Levaquin as well. For now the patient will be continuing with the rest of his medications as prescribed. I've also discussed previously the patient's prognosis with his family and the patient is not yet ready for transfer to fdc. Paperwork is being filed for this. I've also ordered a comprehensive metabolic panel and a CBC in the morning. I suspected overall the patient's prognosis is poor. His diet will be continued as tolerated.
--- NOTE | 2017-02-09 15:39 | PCM.PN ---
- General Info Date of Service: 02/09/17 Admission Dx/Problem (Free Text): 71M COPD HTN HLP DM with syncopal episodes admitting Dx MSSA bacteremia, multilobar pneumonia, persistent afib Subjective Update: patient alert, but sleepy, slightly improved, still have productive coughing, ECG showed he went into afib last night, he got metoprolol 25 last night - Review of Systems General: Reports: Weakness, Fatigue HEENT: Reports: no symptoms Pulmonary: Reports: shortness of breath, cough Cardiovascular: Reports: No Symptoms Gastrointestinal: Reports: No symptoms Genitourinary: Reports: no symptoms Musculoskeletal: Reports: no symptoms Skin: Reports: no symptoms Neurological: Reports: No Symptoms - Patient Data Vitals - most recent: Last Vital Signs Temp 36.4 C 02/09/17 12:00 Pulse 102 H 02/09/17 12:00 Resp 22 H 02/09/17 12:00 BP 124/66 02/09/17 12:00 Pulse Ox 94 L 02/09/17 12:00 Weight - most recent: 78.063 kg I&O - last 24 hours: Intake & Output 02/09/17 02/09/17 02/09/17 06:59 14:59 22:59 Intake Total 2150 Output Total 1500 Balance 650 Lab Results last 24 hrs: Laboratory Results - last 24 hr 02/08/17 02/08/17 02/09/17 Range/Units 16:40 22:32 04:48 WBC (4.0-11.0) K/uL RBC (4.50-5.90) M/uL Hgb (13.0-17.0) g/dL Hct (38.0-50.0) % MCV (80.0-98.0) fL MCH (27.0-32.0) pg MCHC (31.0-37.0) g/dL RDW Std Deviation (28.0-62.0) fl RDW Coeff of Angie (11.0-15.0) % Plt Count (150-400) K/uL MPV (7.40-12.00) fL Add Manual Diff Neutrophils % (Manual) (48.0-80.0) % Band Neutrophils % % Lymphocytes % (Manual) (16.0-40.0) % Monocytes % (Manual) (0.0-15.0) % Basophils % (Manual) (0.0-1.5) % Nucleated RBC % /100WBC Absolute Seg Neuts Band Neutrophils # Lymphocytes # (Manual) Monocytes # (Manual) Basophils # (Manual) Nucleated RBCs # K/uL Sodium 141 (136-146) mmol/L Potassium 3.4 L (3.5-5.1) mmol/L Chloride 109 (98-110) mmol/L Carbon Dioxide 20 L (21-31) mmol/L BUN 17 (6.0-23.0) mg/dL Creatinine 0.7 (0.6-1.5) mg/dL Est Cr Clr Drug Dosing 104.70 mL/min Estimated GFR (MDRD) > 60.0 ml/min Glucose 147 H (60-110) mg/dL POC Glucose 160 H 165 H (60-110) mg/dL Calcium 7.8 L (8.8-10.8) mg/dL Total Bilirubin 0.7 (0.1-1.5) mg/dL AST 14 (5-40) IU/L ALT 13 (8-54) IU/L Alkaline Phosphatase 64 (40-150) Total Protein 5.1 L (6.0-8.0) g/dL Albumin 2.7 L (3.4-4.8) g/dL Globulin 2.4 (2.0-3.5) g/dL Albumin/Globulin Ratio 1.1 L (1.3-2.8) 02/09/17 02/09/17 02/09/17 Range/Units 04:48 05:27 13:00 WBC 7.73 (4.0-11.0) K/uL RBC 3.48 L (4.50-5.90) M/uL Hgb 10.1 L (13.0-17.0) g/dL Hct 31.6 L (38.0-50.0) % MCV 90.8 (80.0-98.0) fL MCH 29.0 (27.0-32.0) pg MCHC 32.0 (31.0-37.0) g/dL RDW Std Deviation 52.2 (28.0-62.0) fl RDW Coeff of Angie 16 H (11.0-15.0) % Plt Count 265 (150-400) K/uL MPV 8.50 (7.40-12.00) fL Add Manual Diff YES Neutrophils % (Manual) 74 (48.0-80.0) % Band Neutrophils % 5 % Lymphocytes % (Manual) 14 L (16.0-40.0) % Monocytes % (Manual) 6 (0.0-15.0) % Basophils % (Manual) 1 (0.0-1.5) % Nucleated RBC % 0.0 /100WBC Absolute Seg Neuts 5.7 Band Neutrophils # 0.4 Lymphocytes # (Manual) 1.1 Monocytes # (Manual) 0.5 Basophils # (Manual) 0 Nucleated RBCs # 0 K/uL Sodium (136-146) mmol/L Potassium (3.5-5.1) mmol/L Chloride (98-110) mmol/L Carbon Dioxide (21-31) mmol/L BUN (6.0-23.0) mg/dL Creatinine (0.6-1.5) mg/dL Est Cr Clr Drug Dosing mL/min Estimated GFR (MDRD) ml/min Glucose (60-110) mg/dL POC Glucose 123 H 158 H (60-110) mg/dL Calcium (8.8-10.8) mg/dL Total Bilirubin (0.1-1.5) mg/dL AST (5-40) IU/L ALT (8-54) IU/L Alkaline Phosphatase (40-150) Total Protein (6.0-8.0) g/dL Albumin (3.4-4.8) g/dL Globulin (2.0-3.5) g/dL Albumin/Globulin Ratio (1.3-2.8) Med Orders - Current: Current Medications Acetaminophen (Tylenol) 650 mg PO Q4H PRN PRN Reason: Pain (Mild 1-3)/fever Last Admin: 02/06/17 19:41 Dose: 650 mg Albuterol/Ipratropium (Duoneb 3.0-0.5 Mg/3 Ml) 3 ml NEB Q4HRRT [facility] Last Admin: 02/09/17 14:05 Dose: 3 ml Bisacodyl (Dulcolax) 10 mg RECTAL DAILY PRN PRN Reason: Constipation Enoxaparin Sodium (Lovenox) 40 mg SUBCUT DAILY [facility] Last Admin: 02/09/17 08:23 Dose: 40 mg Finasteride (Proscar) 5 mg PO DAILY [facility] Last Admin: 02/09/17 08:15 Dose: 5 mg Furosemide (Lasix) 20 mg PO DAILY [facility] Last Admin: 02/09/17 08:22 Dose: 20 mg Sodium Chloride (Normal Saline) 1,000 mls @ 50 mls/hr IV ASDIRECTED [facility] Last Admin: 02/09/17 00:49 Dose: 50 mls/hr Piperacillin Sod/Tazobactam (Sod 4.5 gm/ Sodium Chloride) 100 mls @ 100 mls/hr IV Q6H [facility] Last Admin: 02/09/17 15:17 Dose: 100 mls/hr Vancomycin HCl 1,250 mg/ (Sodium Chloride) 250 mls @ 166.667 mls/hr IV Q12H [facility] Last Admin: 02/09/17 13:15 Dose: 166.667 mls/hr Levofloxacin/Dextrose 750 mg/ (Premix) 150 mls @ 100 mls/hr IV Q24H [facility] Magnesium Hydroxide (Milk Of Magnesia) 30 ml PO DAILY [facility] Last Admin: 02/09/17 08:22 Dose: 30 ml Metformin HCl (Glucophage) 1,500 mg PO BIDMEALS [facility] Last Admin: 02/09/17 08:15 Dose: 1,500 mg Metoprolol Tartrate (Lopressor) 25 mg PO Q8H [facility] Morphine Sulfate (Morphine) 2 mg IVPUSH Q4H PRN PRN Reason: Pain (moderate 4-6) Last Admin: 02/09/17 10:13 Dose: 2 mg Omeprazole (Omeprazole) 20 mg PO ACBREAKFAST [facility] Last Admin: 02/09/17 06:35 Dose: 20 mg Ondansetron HCl (Zofran Odt) 4 mg PO Q4H PRN PRN Reason: nausea, able to take PO Last Admin: 02/06/17 08:08 Dose: 4 mg Oxycodone HCl (Oxycontin) 40 mg PO BEDTIME PRN PRN Reason: Pain (severe 7-10) Last Admin: 02/08/17 21:02 Dose: 40 mg Oxycodone HCl (Oxycodone) 10 mg PO Q4H PRN PRN Reason: Breakthrough Pain Last Admin: 02/09/17 13:21 Dose: 10 mg Symbicort 160-4.5mcg 1 each INH BID [facility] Last Admin: 02/09/17 09:45 Dose: 1 each Sertraline HCl (Zoloft) 50 mg PO BEDTIME [facility] Last Admin: 02/08/17 20:58 Dose: 50 mg Sodium Chloride (Saline Flush) 10 ml FLUSH ASDIRECTED PRN PRN Reason: Keep Vein Open Last Admin: 02/04/17 12:06 Dose: 10 ml Sodium Chloride (Saline Flush) 2.5 ml FLUSH ASDIRECTED PRN PRN Reason: Keep Vein Open Last Admin: 02/04/17 12:07 Dose: 2.5 ml Tamsulosin HCl (Flomax) 0.4 mg PO BEDTIME [facility] Last Admin: 02/08/17 20:59 Dose: 0.4 mg Temazepam (Restoril) 15 mg PO BEDTIME PRN PRN Reason: Sleep Last Admin: 02/06/17 22:35 Dose: 15 mg Tiotropium [place] (Spiriva Handihaler) 18 mcg INH DAILY [facility] Last Admin: 02/09/17 09:46 Dose: 1 ampule Trazodone HCl (Trazodone) 100 mg PO BEDTIME [facility] Last Admin: 02/08/17 21:00 Dose: 100 mg Vancomycin HCl (Pharmacy To Dose - Vancomycin) 1 dose .XX ASDIRECTED [facility] Discontinued Medications Albuterol/Ipratropium (Duoneb 3.0-0.5 Mg/3 Ml) 3 ml NEB Q4HRRT PRN PRN Reason: Shortness Of Breath/wheezing Last Admin: 02/05/17 17:49 Dose: 3 ml Al Hydroxide/Mg Hydroxide 15 (ml/ Lidocaine HCl 5 ml) 0 ml PO ONETIME ONE Stop: 02/06/17 23:41 Last Admin: 02/07/17 00:04 Dose: 20 each Sodium Chloride (Normal Saline) 1,000 mls @ 999 mls/hr IV STAT ONE Stop: 02/04/17 12:31 Last Admin: 02/04/17 12:05 Dose: 999 mls/hr Azithromycin 500 mg/ Sodium (Chloride) 250 mls @ 250 mls/hr IV Q24H [facility] Last Admin: 02/05/17 16:24 Dose: 250 mls/hr Vancomycin HCl 1,250 mg/ (Dextrose/Water) 250 mls @ 166.667 mls/hr IV Q12H [facility] Last Admin: 02/05/17 00:37 Dose: 166.667 mls/hr Vancomycin HCl 1,250 mg/ (Sodium Chloride) 250 mls @ 166.667 mls/hr IV Q12H [facility] Last Infusion: 02/08/17 01:30 Dose: Infused Ketorolac Tromethamine (Toradol) 15 mg IVPUSH STAT ONE Stop: 02/04/17 13:38 Last Admin: 02/04/17 13:42 Dose: 15 mg Metformin HCl (Glucophage) 1,500 mg PO BID [facility] Last Admin: 02/06/17 08:08 Dose: 1,500 mg Metoprolol Succinate (Toprol Xl) 25 mg PO DAILY [facility] Last Admin: 02/09/17 08:22 Dose: 25 mg Omeprazole (Omeprazole) 20 mg PO DAILY [facility] Last Admin: 02/06/17 08:08 Dose: 20 mg Oxycodone HCl (Oxycodone) 5 mg PO Q4H PRN PRN Reason: Breakthrough Pain Last Admin: 02/06/17 20:43 Dose: 5 mg Potassium Chloride (Klor-Con M20) 20 meq PO ONETIME ONE Stop: 02/09/17 10:53 Last Admin: 02/09/17 12:55 Dose: 20 meq Vancomycin HCl (Pharmacy To Dose - Vancomycin) 1 dose .XX ASDIRECTED [facility] - Exam Quality Assessment: supplemental oxygen General: alert, oriented HEENT: Pupils equal, Pupils reactive Neck: supple Lungs: Rales (right more than left), Rhonchi Cardiovascular: Irregular Rhythm Abdomen: bowel sounds present, soft, no tenderness Extremities: normal pulses EKG INTERPRETATION Rhythm: a-fib - Problem List Review Problem List Initiated/Reviewed/Updated: Yes - My Orders Last 24 Hours: My Active Orders 02/08/17 20:13 EKG 12 Lead [EKG Documentation Completion] [RC] ROUTINE 02/09/17 08:00 Echo Comp wo Cont [US] Routine 02/09/17 16:00 Metoprolol Tartrate [Lopressor] 25 mg PO Q8H - Plan Plan:: February 04, 2017: The patient has a been admitted to observation. The patient likely has syncopal episode secondary to dehydration or volume contraction. The patient has not been eating well or drinking well within the past several days. The patient does have a lactic acid of 3.5 and he'll be placed on a lactic as protocol. I've also elected to fluid resuscitate the 71M COPD HTN HLP DM with syncopal episodes admitting Dx MSSA bacteremia, multilobar pneumonia, persistent afib 1. persistent afib: most likely from his current illness bacteria with multilobar PNA, I would do rate control for him, his BP was reasonable I put him on metoprolol 25 BID. Echo prelim poor quality, however I believed grossly normal LVEF, but the regional wall motion cannot be assessed, and the valvular abnormalities cannot be assessed due to limited quality of echo. [id number] = 4 , for afib he would need children's aide Afib, however, he developed bruises on his skin, I would suspected that could be from sepsis, bacteremia. I would hold off ATC and reassess when he recovered. 2. syncope: I believed this is due to his current illness, sepsis MSSA bacteremia. with multilobar PNA. 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 I would reassess when he recovered from this. 3. Sepsis, PNA MSSA bacteremia: on zosyn and vanco, per hospitalist.
[2017-02-09] MEDS: Levofloxacin/Dextrose 5%-Water 750 MG in Premix Bag 1 BAG IV SCH (16:29)
[2017-02-09] MEDS: Metoprolol Tartrate 25 MG Tab PO SCH ×2 (17:03→23:55)
[2017-02-09] MEDS: oxyCODONE ER 20 MG TAB.ER PO PRN (21:09)
[2017-02-09] MEDS: Tamsulosin 0.4 MG Cap.ER PO SCH (21:09)
[2017-02-09] MEDS: traZODone 50 MG Tab PO SCH (21:09)
[2017-02-09] MEDS: Sertraline 50 MG Tab PO SCH (21:10)
[2017-02-10] MEDS: Piperacillin/Tazobactam 4.5 GM in Sodium Chloride 0.9% 100 ML IV SCH ×4 (02:03→18:39)
[2017-02-10] MEDS: Albuterol/Ipratropium 3.0-0.5 MG/3 ML Neb Soln NEB SCH ×7 (02:03→22:24)
[2017-02-10] MEDS: Morphine 2 MG/ML Syringe IVPUSH PRN ×4 (03:15→19:51)
[2017-02-10] MEDS: Sodium Chloride 0.9% 1,000 ML IV SCH (06:30)
[2017-02-10] MEDS: Omeprazole 20 MG Cap.CR PO SCH (06:35)
[2017-02-10 06:36] LABS: CHLORIDE,CL 109 mmol/L (98-110); SODIUM,NA 142 mmol/L (136-146)
[2017-02-10] MEDS: metFORMIN 500 MG Tab PO SCH ×2 (08:40→16:53)
[2017-02-10] MEDS: Magnesium Hydroxide 400 MG/5 ML Susp 30 ML Cup PO SCH (08:41)
[2017-02-10] MEDS: Enoxaparin 40 MG/0.4 ML Syringe SUBCUT SCH (08:41)
[2017-02-10] MEDS: Metoprolol Tartrate 25 MG Tab PO SCH ×3 (08:41→23:33)
[2017-02-10] MEDS: oxyCODONE 5 MG Tab PO PRN ×4 (08:42→22:29)
[2017-02-10] MEDS: SYMBICORT 160-4.5MCG INH SCH ×2 (08:54→20:47)
[2017-02-10] MEDS: Tiotropium Inhaler 18 MCG Inhalation Powder Cap Kit of 5 INH SCH (08:54)
[2017-02-10] MEDS: Furosemide 20 MG Tab PO SCH (10:39)
[2017-02-10] MEDS: Finasteride 5 MG Tab PO SCH (10:39)
--- NOTE | 2017-02-10 12:23 | PCM.PN ---
- General Info Admission Dx/Problem (Free Text): 71M COPD HTN HLP DM with syncopal episodes admitting Dx MSSA bacteremia, multilobar pneumonia, persistent afib Subjective Update: patient alert, but sleepy, slightly improved, still have productive coughing, ECG showed he went into afib last night, he got metoprolol 25 last night Feb 10, 2017: the patient says that he's feeling a little better today Functional Status: Reports: pain controlled. Denies: tolerating diet - Review of Systems General: Reports: Weakness, Fatigue. Denies: Appetite HEENT: Reports: no symptoms Pulmonary: Reports: shortness of breath, cough, sputum, wheezing Cardiovascular: Reports: No Symptoms Gastrointestinal: Reports: Decreased appetite Genitourinary: Reports: no symptoms Musculoskeletal: Reports: no symptoms Skin: Reports: no symptoms Neurological: Reports: No Symptoms Psychiatric: Reports: no symptoms - Patient Data Vitals - most recent: Last Vital Signs Temp 37.3 C 02/10/17 08:00 Pulse 104 H 02/10/17 08:41 Resp 15 02/10/17 08:00 BP 122/84 02/10/17 08:41 Pulse Ox 95 02/10/17 08:00 Weight - most recent: 78.063 kg I&O - last 24 hours: Intake & Output 02/09/17 02/10/17 02/10/17 22:59 06:59 14:59 Intake Total 1507 1650 250 Output Total 1075 550 Balance 432 1100 250 Lab Results last 24 hrs: Laboratory Results - last 24 hr 02/09/17 02/09/17 02/09/17 Range/Units 13:00 16:57 22:43 WBC (4.0-11.0) K/uL RBC (4.50-5.90) M/uL Hgb (13.0-17.0) g/dL Hct (38.0-50.0) % MCV (80.0-98.0) fL MCH (27.0-32.0) pg MCHC (31.0-37.0) g/dL RDW Std Deviation (28.0-62.0) fl RDW Coeff of Angie (11.0-15.0) % Plt Count (150-400) K/uL MPV (7.40-12.00) fL Add Manual Diff Neutrophils % (Manual) (48.0-80.0) % Band Neutrophils % % Lymphocytes % (Manual) (16.0-40.0) % Monocytes % (Manual) (0.0-15.0) % Eosinophils % (Manual) (0.0-7.0) % Basophils % (Manual) (0.0-1.5) % Nucleated RBC % /100WBC Absolute Seg Neuts Band Neutrophils # Lymphocytes # (Manual) Monocytes # (Manual) Eosinophils # (Manual) Basophils # (Manual) Nucleated RBCs # K/uL Sodium (136-146) mmol/L Potassium (3.5-5.1) mmol/L Chloride (98-110) mmol/L Carbon Dioxide (21-31) mmol/L BUN (6.0-23.0) mg/dL Creatinine (0.6-1.5) mg/dL Est Cr Clr Drug Dosing mL/min Estimated GFR (MDRD) ml/min Glucose (60-110) mg/dL POC Glucose 158 H 139 H 137 H (60-110) mg/dL Calcium (8.8-10.8) mg/dL Total Bilirubin (0.1-1.5) mg/dL AST (5-40) IU/L ALT (8-54) IU/L Alkaline Phosphatase (40-150) Total Protein (6.0-8.0) g/dL Albumin (3.4-4.8) g/dL Globulin (2.0-3.5) g/dL Albumin/Globulin Ratio (1.3-2.8) 02/10/17 02/10/17 02/10/17 Range/Units 05:18 05:18 06:13 WBC 8.28 (4.0-11.0) K/uL RBC 3.57 L (4.50-5.90) M/uL Hgb 10.4 L (13.0-17.0) g/dL Hct 32.6 L (38.0-50.0) % MCV 91.3 (80.0-98.0) fL MCH 29.1 (27.0-32.0) pg MCHC 31.9 (31.0-37.0) g/dL RDW Std Deviation 52.5 (28.0-62.0) fl RDW Coeff of Angie 16 H (11.0-15.0) % Plt Count 272 (150-400) K/uL MPV 8.60 (7.40-12.00) fL Add Manual Diff YES Neutrophils % (Manual) 77 (48.0-80.0) % Band Neutrophils % 5 % Lymphocytes % (Manual) 11 L (16.0-40.0) % Monocytes % (Manual) 5 (0.0-15.0) % Eosinophils % (Manual) 1 (0.0-7.0) % Basophils % (Manual) 1 (0.0-1.5) % Nucleated RBC % 0.0 /100WBC Absolute Seg Neuts 6.4 Band Neutrophils # 0.4 Lymphocytes # (Manual) 0.9 Monocytes # (Manual) 0.4 Eosinophils # (Manual) 0.1 Basophils # (Manual) 0 Nucleated RBCs # 0 K/uL Sodium 142 (136-146) mmol/L Potassium 3.6 (3.5-5.1) mmol/L Chloride 109 (98-110) mmol/L Carbon Dioxide 23 (21-31) mmol/L BUN 17 (6.0-23.0) mg/dL Creatinine 0.7 (0.6-1.5) mg/dL Est Cr Clr Drug Dosing 104.70 mL/min Estimated GFR (MDRD) > 60.0 ml/min Glucose 133 H (60-110) mg/dL POC Glucose 127 H (60-110) mg/dL Calcium 8.1 L (8.8-10.8) mg/dL Total Bilirubin 0.6 (0.1-1.5) mg/dL AST 15 (5-40) IU/L ALT 13 (8-54) IU/L Alkaline Phosphatase 65 (40-150) Total Protein 5.5 L (6.0-8.0) g/dL Albumin 2.7 L (3.4-4.8) g/dL Globulin 2.8 (2.0-3.5) g/dL Albumin/Globulin Ratio 1.0 L (1.3-2.8) 02/10/17 Range/Units 11:16 WBC (4.0-11.0) K/uL RBC (4.50-5.90) M/uL Hgb (13.0-17.0) g/dL Hct (38.0-50.0) % MCV (80.0-98.0) fL MCH (27.0-32.0) pg MCHC (31.0-37.0) g/dL RDW Std Deviation (28.0-62.0) fl RDW Coeff of Angie (11.0-15.0) % Plt Count (150-400) K/uL MPV (7.40-12.00) fL Add Manual Diff Neutrophils % (Manual) (48.0-80.0) % Band Neutrophils % % Lymphocytes % (Manual) (16.0-40.0) % Monocytes % (Manual) (0.0-15.0) % Eosinophils % (Manual) (0.0-7.0) % Basophils % (Manual) (0.0-1.5) % Nucleated RBC % /100WBC Absolute Seg Neuts Band Neutrophils # Lymphocytes # (Manual) Monocytes # (Manual) Eosinophils # (Manual) Basophils # (Manual) Nucleated RBCs # K/uL Sodium (136-146) mmol/L Potassium (3.5-5.1) mmol/L Chloride (98-110) mmol/L Carbon Dioxide (21-31) mmol/L BUN (6.0-23.0) mg/dL Creatinine (0.6-1.5) mg/dL Est Cr Clr Drug Dosing mL/min Estimated GFR (MDRD) ml/min Glucose (60-110) mg/dL POC Glucose 140 H (60-110) mg/dL Calcium (8.8-10.8) mg/dL Total Bilirubin (0.1-1.5) mg/dL AST (5-40) IU/L ALT (8-54) IU/L Alkaline Phosphatase (40-150) Total Protein (6.0-8.0) g/dL Albumin (3.4-4.8) g/dL Globulin (2.0-3.5) g/dL Albumin/Globulin Ratio (1.3-2.8) Med Orders - Current: Current Medications Acetaminophen (Tylenol) 650 mg PO Q4H PRN PRN Reason: Pain (Mild 1-3)/fever Last Admin: 02/06/17 19:41 Dose: 650 mg Albuterol/Ipratropium (Duoneb 3.0-0.5 Mg/3 Ml) 3 ml NEB Q4HRRT HARPAL Last Admin: 02/10/17 09:50 Dose: 3 ml Bisacodyl (Dulcolax) 10 mg RECTAL DAILY PRN PRN Reason: Constipation Enoxaparin Sodium (Lovenox) 40 mg SUBCUT DAILY [facility] Last Admin: 02/10/17 08:41 Dose: 40 mg Finasteride (Proscar) 5 mg PO DAILY [facility] Last Admin: 02/10/17 10:39 Dose: 5 mg Furosemide (Lasix) 20 mg PO DAILY [facility] Last Admin: 02/10/17 10:39 Dose: 20 mg Sodium Chloride (Normal Saline) 1,000 mls @ 50 mls/hr IV ASDIRECTED [facility] Last Admin: 02/10/17 06:30 Dose: 50 mls/hr Piperacillin Sod/Tazobactam (Sod 4.5 gm/ Sodium Chloride) 100 mls @ 100 mls/hr IV Q6H [facility] Last Admin: 02/10/17 06:33 Dose: 100 mls/hr Vancomycin HCl 1,250 mg/ (Sodium Chloride) 250 mls @ 166.667 mls/hr IV Q12H [facility] Last Admin: 02/10/17 10:56 Dose: 166.6 mls/hr Levofloxacin/Dextrose 750 mg/ (Premix) 150 mls @ 100 mls/hr IV Q24H [facility] Last Admin: 02/09/17 16:29 Dose: 100 mls/hr Magnesium Hydroxide (Milk Of Magnesia) 30 ml PO DAILY [facility] Last Admin: 02/10/17 08:41 Dose: 30 ml Metformin HCl (Glucophage) 1,500 mg PO BIDMEALS [facility] Last Admin: 02/10/17 08:40 Dose: 1,500 mg Metoprolol Tartrate (Lopressor) 25 mg PO Q8H [facility] Last Admin: 02/10/17 08:41 Dose: 25 mg Morphine Sulfate (Morphine) 2 mg IVPUSH Q4H PRN PRN Reason: Pain (moderate 4-6) Last Admin: 02/10/17 11:13 Dose: 2 mg Omeprazole (Omeprazole) 20 mg PO ACBREAKFAST [facility] Last Admin: 02/10/17 06:35 Dose: 20 mg Ondansetron HCl (Zofran Odt) 4 mg PO Q4H PRN PRN Reason: nausea, able to take PO Last Admin: 02/06/17 08:08 Dose: 4 mg Oxycodone HCl (Oxycontin) 40 mg PO BEDTIME PRN PRN Reason: Pain (severe 7-10) Last Admin: 02/09/17 21:09 Dose: 40 mg Oxycodone HCl (Oxycodone) 10 mg PO Q4H PRN PRN Reason: Breakthrough Pain Last Admin: 02/10/17 08:42 Dose: 10 mg Symbicort 160-4.5mcg 1 each INH BID HARPAL Last Admin: 02/10/17 08:54 Dose: 1 each Sertraline HCl (Zoloft) 50 mg PO BEDTIME HARPAL Last Admin: 02/09/17 21:10 Dose: 50 mg Sodium Chloride (Saline Flush) 10 ml FLUSH ASDIRECTED PRN PRN Reason: Keep Vein Open Last Admin: 02/04/17 12:06 Dose: 10 ml Sodium Chloride (Saline Flush) 2.5 ml FLUSH ASDIRECTED PRN PRN Reason: Keep Vein Open Last Admin: 02/04/17 12:07 Dose: 2.5 ml Tamsulosin HCl (Flomax) 0.4 mg PO BEDTIME [facility] Last Admin: 02/09/17 21:09 Dose: 0.4 mg Temazepam (Restoril) 15 mg PO BEDTIME PRN PRN Reason: Sleep Last Admin: 02/06/17 22:35 Dose: 15 mg Tiotropium [place] (Spiriva Handihaler) 18 mcg INH DAILY [facility] Last Admin: 02/10/17 08:54 Dose: 1 ampule Trazodone HCl (Trazodone) 100 mg PO BEDTIME [facility] Last Admin: 02/09/17 21:09 Dose: 100 mg Vancomycin HCl (Pharmacy To Dose - Vancomycin) 1 dose .XX ASDIRECTED [facility] Discontinued Medications Albuterol/Ipratropium (Duoneb 3.0-0.5 Mg/3 Ml) 3 ml NEB Q4HRRT PRN PRN Reason: Shortness Of Breath/wheezing Last Admin: 02/05/17 17:49 Dose: 3 ml Al Hydroxide/Mg Hydroxide 15 (ml/ Lidocaine HCl 5 ml) 0 ml PO ONETIME ONE Stop: 02/06/17 23:41 Last Admin: 02/07/17 00:04 Dose: 20 each Sodium Chloride (Normal Saline) 1,000 mls @ 999 mls/hr IV STAT ONE Stop: 02/04/17 12:31 Last Admin: 02/04/17 12:05 Dose: 999 mls/hr Azithromycin 500 mg/ Sodium (Chloride) 250 mls @ 250 mls/hr IV Q24H [facility] Last Admin: 02/05/17 16:24 Dose: 250 mls/hr Vancomycin HCl 1,250 mg/ (Dextrose/Water) 250 mls @ 166.667 mls/hr IV Q12H [facility] Last Admin: 02/05/17 00:37 Dose: 166.667 mls/hr Vancomycin HCl 1,250 mg/ (Sodium Chloride) 250 mls @ 166.667 mls/hr IV Q12H [facility] Last Infusion: 02/08/17 01:30 Dose: Infused Ketorolac Tromethamine (Toradol) 15 mg IVPUSH STAT ONE Stop: 02/04/17 13:38 Last Admin: 02/04/17 13:42 Dose: 15 mg Metformin HCl (Glucophage) 1,500 mg PO BID [facility] Last Admin: 02/06/17 08:08 Dose: 1,500 mg Metoprolol Succinate (Toprol Xl) 25 mg PO DAILY [facility] Last Admin: 02/09/17 08:22 Dose: 25 mg Omeprazole (Omeprazole) 20 mg PO DAILY [facility] Last Admin: 02/06/17 08:08 Dose: 20 mg Oxycodone HCl (Oxycodone) 5 mg PO Q4H PRN PRN Reason: Breakthrough Pain Last Admin: 02/06/17 20:43 Dose: 5 mg Potassium Chloride (Klor-Con M20) 20 meq PO ONETIME ONE Stop: 02/09/17 10:53 Last Admin: 02/09/17 12:55 Dose: 20 meq Vancomycin HCl (Pharmacy To Dose - Vancomycin) 1 dose .XX ASDIRECTED [facility] - Exam Quality Assessment: supplemental oxygen General: alert, oriented, lethargic HEENT: Pupils equal, Pupils reactive Neck: supple, trachea midline Lungs: Decreased breath sounds, Rales Cardiovascular: Irregular Rhythm Abdomen: soft, no tenderness, no distension Extremities: no edema Skin: warm, dry, ecchymosis Neurological: no new focal deficit Psy/Mental Status: alert, normal affect - Problem List & Annotations (1) Ventricular tachyarrhythmia SNOMED Code(s): 47659638, 11692357 Code(s): I47.2 - VENTRICULAR TACHYCARDIA Status: Acute Priority: High Current Visit: Yes Annotation/Comment:: patient evaluated by cardiology. Rate controlled (2) Bacteremia due to Gram-positive bacteria SNOMED Code(s): 372395988001 Code(s): R78.81 - BACTEREMIA Status: Acute Priority: High Current Visit : Yes Annotation/Comment:: blood cultures positive for MSSA. Zosyn 4.5 g IV every 6 hours added. (3) Syncope SNOMED Code(s): 009412455 Code(s): R55 - SYNCOPE AND COLLAPSE Status: Acute Priority: High Current Visit: Yes Qualifiers: Syncope type: unspecified Qualified Code(s): R55 - Syncope and collapse (4) Dehydration SNOMED Code(s): 88294816 Code(s): E86.0 - DEHYDRATION Status: Acute Priority: High Current Visit : Yes (5) Gait disturbance SNOMED Code(s): 65338689 Code(s): R26.9 - UNSPECIFIED ABNORMALITIES OF GAIT AND MOBILITY Status: Chronic Priority: Medium Current Visit: Yes (6) Smoker SNOMED Code(s): 62641848 Code(s): F17.200 - NICOTINE DEPENDENCE, UNSPECIFIED, UNCOMPLICATED Status: Chronic Priority: Medium Current Visit: Yes (7) Diabetes type 2, controlled SNOMED Code(s): 39339477 Code(s): E11.9 - TYPE 2 DIABETES MELLITUS WITHOUT COMPLICATIONS Status: Chronic Priority: High Current Visit: Yes Qualifiers: Diabetes mellitus complication status: without complication Diabetes mellitus longterm insulin use: without rugby union footballer use Qualified Code(s): E11.9 - Type 2 diabetes mellitus without complications (8) COPD, Severe chronic obstructive pulmonary disease SNOMED Code(s): 381993570 Code(s): J44.9 - CHRONIC OBSTRUCTIVE PULMONARY DISEASE, UNSPECIFIED Status : Chronic Priority: Medium Current Visit: Yes - Problem List Review Problem List Initiated/Reviewed/Updated: Yes - My Orders Last 24 Hours: My Active Orders 02/09/17 11:30 Vancomycin 1,250 mg Sodium Chloride 0.9% [Normal Saline] 250 ml IV Q12H 02/09/17 14:00 Levofloxacin/Dextrose 5%-Water [Levaquin in D5W 750 MG/150 ML] 750 mg Premix Bag 1 bag IV Q24H 02/10/17 22:30 VANCOMYCIN TROUGH [CHEM] Routine - Plan Plan:: February 04, 2017: The patient has a been admitted to observation. The patient likely has syncopal episode secondary to dehydration or volume contraction. The patient has not been eating well or drinking well within the past several days. The patient does have a lactic acid of 3.5 and he'll be placed on a lactic as protocol. I've also elected to fluid resuscitate the 71M COPD HTN HLP DM with syncopal episodes admitting Dx MSSA bacteremia, multilobar pneumonia, persistent afib 1. persistent afib: most likely from his current illness bacteria with multilobar PNA, I would do rate control for him, his BP was reasonable I put him on metoprolol 25 BID. Echo prelim poor quality, however I believed grossly normal LVEF, but the regional wall motion cannot be assessed, and the valvular abnormalities cannot be assessed due to limited quality of echo. [id number] = 4 , for afib he would need rugby union footballer Afib, however, he developed bruises on his skin, I would suspected that could be from sepsis, bacteremia. I would hold off ATC and reassess when he recovered. 2. syncope: I believed this is due to his current illness, sepsis MSSA bacteremia. with multilobar PNA. 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 I would reassess when he recovered from this. 3. Sepsis, PNA MSSA bacteremia: on zosyn and vanco, per hospitalist. Feb 10, 2017: The patient is a 71-year-old gentleman who is now been changed to an inpatient. Patient has also developed persistent atrial fibrillation and appears that the patient does have multilobular pneumonia. The patient has been very slow to recover. Also the patient is weak and fatigued and he has at times been refusing physical therapy secondary to the fatigue. The patient will be continued on Zosyn and vancomycin also is been suggested and I have recommended that we add Levaquin for pseudomonal coverage. The patient will remain in a DO NOT RESUSCITATE DO NOT INTUBATE category and I have discussed this with the patient's son who is from [place]. Patient's COPD is otherwise stable and he does require oxygen support to keep his oxygen saturations above 92%. I've also increased the patient's pain medications in order to keep him out of pain in addition to his normal dose of OxyContin. The patient's fluid will be continued as the patient does not have adequate appetite or intake at the present time. Overall at this point I feel the patient still has a poor prognosis. We'll consider transfer possibly to [facility] once patient is otherwise stable and has improved sufficiently. I suggested this to the patient as well as the patient's son as a method of strengthening prior to returning home. The patient will be evaluated and his a treatment plan will be adjusted accordingly. The patient will still continue to have his blood sugars checked a.c. and at bedtime and provided insulin coverage if necessary.
[2017-02-10] MEDS: Levofloxacin/Dextrose 5%-Water 750 MG in Premix Bag 1 BAG IV SCH (13:42)
[2017-02-10] MEDS: traZODone 50 MG Tab PO SCH (21:09)
[2017-02-10] MEDS: Sertraline 50 MG Tab PO SCH (21:09)
[2017-02-10] MEDS: Tamsulosin 0.4 MG Cap.ER PO SCH (21:09)
[2017-02-10] MEDS: oxyCODONE ER 20 MG TAB.ER PO PRN (21:10)
[2017-02-11] MEDS: Morphine 2 MG/ML Syringe IVPUSH PRN ×5 (00:51→19:18)
[2017-02-11] MEDS: Albuterol/Ipratropium 3.0-0.5 MG/3 ML Neb Soln NEB SCH ×7 (01:17→22:59)
[2017-02-11] MEDS: Piperacillin/Tazobactam 4.5 GM in Sodium Chloride 0.9% 100 ML IV SCH ×4 (01:19→18:33)
[2017-02-11] MEDS: oxyCODONE 5 MG Tab PO PRN ×2 (04:00→08:16)
[2017-02-11 06:22] LABS: CHLORIDE,CL 108 mmol/L (98-110); SODIUM,NA 142 mmol/L (136-146)
[2017-02-11] MEDS: Omeprazole 20 MG Cap.CR PO SCH (07:00)
[2017-02-11] MEDS: metFORMIN 500 MG Tab PO SCH ×2 (08:22→16:33)
[2017-02-11] MEDS: Furosemide 20 MG Tab PO SCH (08:23)
[2017-02-11] MEDS: Metoprolol Tartrate 25 MG Tab PO SCH ×2 (08:23→16:29)
[2017-02-11] MEDS: Finasteride 5 MG Tab PO SCH (08:24)
[2017-02-11] MEDS: Enoxaparin 40 MG/0.4 ML Syringe SUBCUT SCH (08:24)
[2017-02-11] MEDS: Magnesium Hydroxide 400 MG/5 ML Susp 30 ML Cup PO SCH (08:24)
[2017-02-11] MEDS: SYMBICORT 160-4.5MCG INH SCH ×2 (09:04→20:23)
[2017-02-11] MEDS: Tiotropium Inhaler 18 MCG Inhalation Powder Cap Kit of 5 INH SCH ×2 (09:05→20:24)
[2017-02-11] MEDS ORDERED: Sodium Chloride 0.9% 1,000 ML IV SCH (10:15)
[2017-02-11] MEDS: oxyCODONE 5 MG Tab PO SCH ×5 (10:50→21:56)
--- NOTE | 2017-02-11 10:50 | PCM.PN ---
- General Info Date of Service: 02/11/17 Admission Dx/Problem (Free Text): 71M COPD HTN HLP DM with syncopal episodes admitting Dx MSSA bacteremia, multilobar pneumonia, persistent afib Subjective Update: patient alert, but sleepy, slightly improved, still have productive coughing, ECG showed he went into afib last night, he got metoprolol 25 last night Feb 10, 2017: the patient says that he's feeling a little better today not feeling much better today, complaining of weakness and fatigue, poor appetite Functional Status: Denies: pain controlled, tolerating diet - Review of Systems General: Reports: Weakness, Fatigue. Denies: Appetite HEENT: Reports: no symptoms Pulmonary: Reports: shortness of breath, cough, wheezing Cardiovascular: Reports: No Symptoms Gastrointestinal: Reports: Decreased appetite Genitourinary: Reports: no symptoms Musculoskeletal: Reports: no symptoms Skin: Reports: no symptoms Neurological: Reports: No Symptoms Psychiatric: Reports: no symptoms - Patient Data Vitals - most recent: Last Vital Signs Temp 37.3 C 02/11/17 08:00 Pulse 96 02/11/17 08:23 Resp 20 02/11/17 08:00 BP 114/63 02/11/17 08:23 Pulse Ox 93 L 02/11/17 08:00 Weight - most recent: 78.063 kg I&O - last 24 hours: Intake & Output 02/10/17 02/11/17 02/11/17 22:59 06:59 14:59 Intake Total 1050 1350 100 Output Total 650 425 Balance 400 925 100 Lab Results last 24 hrs: Laboratory Results - last 24 hr 02/10/17 02/10/17 02/10/17 Range/Units 11:16 16:53 21:07 WBC (4.0-11.0) K/uL RBC (4.50-5.90) M/uL Hgb (13.0-17.0) g/dL Hct (38.0-50.0) % MCV (80.0-98.0) fL MCH (27.0-32.0) pg MCHC (31.0-37.0) g/dL RDW Std Deviation (28.0-62.0) fl RDW Coeff of Angie (11.0-15.0) % Plt Count (150-400) K/uL MPV (7.40-12.00) fL Add Manual Diff Neutrophils % (Manual) (48.0-80.0) % Band Neutrophils % % Lymphocytes % (Manual) (16.0-40.0) % Monocytes % (Manual) (0.0-15.0) % Metamyelocytes % % Nucleated RBC % /100WBC Absolute Seg Neuts Band Neutrophils # Lymphocytes # (Manual) Monocytes # (Manual) Absolute Metamyelocyte Nucleated RBCs # K/uL Sodium (136-146) mmol/L Potassium (3.5-5.1) mmol/L Chloride (98-110) mmol/L Carbon Dioxide (21-31) mmol/L BUN (6.0-23.0) mg/dL Creatinine (0.6-1.5) mg/dL Est Cr Clr Drug Dosing mL/min Estimated GFR (MDRD) ml/min Glucose (60-110) mg/dL POC Glucose 140 H 131 H 125 H (60-110) mg/dL Calcium (8.8-10.8) mg/dL Phosphorus (2.4-4.7) mg/dL Magnesium (1.5-2.3) mEq/L Total Bilirubin (0.1-1.5) mg/dL AST (5-40) IU/L ALT (8-54) IU/L Alkaline Phosphatase (40-150) Total Protein (6.0-8.0) g/dL Albumin (3.4-4.8) g/dL Globulin (2.0-3.5) g/dL Albumin/Globulin Ratio (1.3-2.8) Vancomycin Trough (5-15) ug/mL 02/10/17 02/11/17 02/11/17 Range/Units 22:25 05:37 05:37 WBC 10.15 (4.0-11.0) K/uL RBC 3.78 L (4.50-5.90) M/uL Hgb 11.3 L (13.0-17.0) g/dL Hct 34.5 L (38.0-50.0) % MCV 91.3 (80.0-98.0) fL MCH 29.9 (27.0-32.0) pg MCHC 32.8 (31.0-37.0) g/dL RDW Std Deviation 52.5 (28.0-62.0) fl RDW Coeff of Angie 16 H (11.0-15.0) % Plt Count 302 (150-400) K/uL MPV 8.80 (7.40-12.00) fL Add Manual Diff YES Neutrophils % (Manual) 74 (48.0-80.0) % Band Neutrophils % 4 % Lymphocytes % (Manual) 16 (16.0-40.0) % Monocytes % (Manual) 5 (0.0-15.0) % Metamyelocytes % 1 % Nucleated RBC % 0.0 /100WBC Absolute Seg Neuts 7.5 Band Neutrophils # 0.4 Lymphocytes # (Manual) 1.6 Monocytes # (Manual) 0.5 Absolute Metamyelocyte 0.1 Nucleated RBCs # 0 K/uL Sodium 142 (136-146) mmol/L Potassium 4.2 (3.5-5.1) mmol/L Chloride 108 (98-110) mmol/L Carbon Dioxide 21 (21-31) mmol/L BUN 21 (6.0-23.0) mg/dL Creatinine 0.7 (0.6-1.5) mg/dL Est Cr Clr Drug Dosing 104.70 mL/min Estimated GFR (MDRD) > 60.0 ml/min Glucose 137 H (60-110) mg/dL POC Glucose (60-110) mg/dL Calcium 7.9 L (8.8-10.8) mg/dL Phosphorus 2.2 L (2.4-4.7) mg/dL Magnesium 1.7 (1.5-2.3) mEq/L Total Bilirubin 0.8 (0.1-1.5) mg/dL AST 14 (5-40) IU/L ALT 15 (8-54) IU/L Alkaline Phosphatase 69 (40-150) Total Protein 5.4 L (6.0-8.0) g/dL Albumin 2.9 L (3.4-4.8) g/dL Globulin 2.5 (2.0-3.5) g/dL Albumin/Globulin Ratio 1.2 L (1.3-2.8) Vancomycin Trough 18.2 H (5-15) ug/mL 02/11/17 02/11/17 Range/Units 06:16 08:21 WBC (4.0-11.0) K/uL RBC (4.50-5.90) M/uL Hgb (13.0-17.0) g/dL Hct (38.0-50.0) % MCV (80.0-98.0) fL MCH (27.0-32.0) pg MCHC (31.0-37.0) g/dL RDW Std Deviation (28.0-62.0) fl RDW Coeff of Angie (11.0-15.0) % Plt Count (150-400) K/uL MPV (7.40-12.00) fL Add Manual Diff Neutrophils % (Manual) (48.0-80.0) % Band Neutrophils % % Lymphocytes % (Manual) (16.0-40.0) % Monocytes % (Manual) (0.0-15.0) % Metamyelocytes % % Nucleated RBC % /100WBC Absolute Seg Neuts Band Neutrophils # Lymphocytes # (Manual) Monocytes # (Manual) Absolute Metamyelocyte Nucleated RBCs # K/uL Sodium (136-146) mmol/L Potassium (3.5-5.1) mmol/L Chloride (98-110) mmol/L Carbon Dioxide (21-31) mmol/L BUN (6.0-23.0) mg/dL Creatinine (0.6-1.5) mg/dL Est Cr Clr Drug Dosing mL/min Estimated GFR (MDRD) ml/min Glucose (60-110) mg/dL POC Glucose 133 H 122 H (60-110) mg/dL Calcium (8.8-10.8) mg/dL Phosphorus (2.4-4.7) mg/dL Magnesium (1.5-2.3) mEq/L Total Bilirubin (0.1-1.5) mg/dL AST (5-40) IU/L ALT (8-54) IU/L Alkaline Phosphatase (40-150) Total Protein (6.0-8.0) g/dL Albumin (3.4-4.8) g/dL Globulin (2.0-3.5) g/dL Albumin/Globulin Ratio (1.3-2.8) Vancomycin Trough (5-15) ug/mL Med Orders - Current: Current Medications Acetaminophen (Tylenol) 650 mg PO Q4H PRN PRN Reason: Pain (Mild 1-3)/fever Last Admin: 02/06/17 19:41 Dose: 650 mg Albuterol/Ipratropium (Duoneb 3.0-0.5 Mg/3 Ml) 3 ml NEB Q4HRRT [facility] Last Admin: 02/11/17 09:31 Dose: 3 ml Bisacodyl (Dulcolax) 10 mg RECTAL DAILY PRN PRN Reason: Constipation Enoxaparin Sodium (Lovenox) 40 mg SUBCUT DAILY [facility] Last Admin: 02/11/17 08:24 Dose: 40 mg Finasteride (Proscar) 5 mg PO DAILY [facility] Last Admin: 02/11/17 08:24 Dose: 5 mg Furosemide (Lasix) 20 mg PO DAILY [facility] Last Admin: 02/11/17 08:23 Dose: 20 mg Piperacillin Sod/Tazobactam (Sod 4.5 gm/ Sodium Chloride) 100 mls @ 100 mls/hr IV Q6H [facility] Last Admin: 02/11/17 06:59 Dose: 100 mls/hr Vancomycin HCl 1,250 mg/ (Sodium Chloride) 250 mls @ 166.667 mls/hr IV Q12H [facility] Last Admin: 02/10/17 23:33 Dose: 166.6 mls/hr Levofloxacin/Dextrose 750 mg/ (Premix) 150 mls @ 100 mls/hr IV Q24H [facility] Last Admin: 02/10/17 13:42 Dose: 100 mls/hr Sodium Chloride (Normal Saline) 1,000 mls @ 75 mls/hr IV ASDIRECTED [facility] Magnesium Hydroxide (Milk Of Magnesia) 30 ml PO DAILY [facility] Last Admin: 02/11/17 08:24 Dose: 30 ml Metformin HCl (Glucophage) 1,500 mg PO BIDMEALS [facility] Last Admin: 02/11/17 08:22 Dose: 1,500 mg Metoprolol Tartrate (Lopressor) 25 mg PO Q8H [facility] Last Admin: 02/11/17 08:23 Dose: 25 mg Morphine Sulfate (Morphine) 2 mg IVPUSH Q2H PRN PRN Reason: Pain (moderate 4-6) Omeprazole (Omeprazole) 20 mg PO ACBREAKFAST [facility] Last Admin: 02/11/17 07:00 Dose: 20 mg Ondansetron HCl (Zofran Odt) 4 mg PO Q4H PRN PRN Reason: nausea, able to take PO Last Admin: 02/06/17 08:08 Dose: 4 mg Oxycodone HCl (Oxycontin) 40 mg PO BEDTIME PRN PRN Reason: Pain (severe 7-10) Last Admin: 02/10/17 21:10 Dose: 40 mg Oxycodone HCl (Oxycodone) 10 mg PO Q4H [facility] Symbicort 160-4.5mcg 1 each INH BID [facility] Last Admin: 02/11/17 09:04 Dose: 1 each Sertraline HCl (Zoloft) 50 mg PO BEDTIME [facility] Last Admin: 02/10/17 21:09 Dose: 50 mg Sodium Chloride (Saline Flush) 10 ml FLUSH ASDIRECTED PRN PRN Reason: Keep Vein Open Last Admin: 02/04/17 12:06 Dose: 10 ml Sodium Chloride (Saline Flush) 2.5 ml FLUSH ASDIRECTED PRN PRN Reason: Keep Vein Open Last Admin: 02/04/17 12:07 Dose: 2.5 ml Tamsulosin HCl (Flomax) 0.4 mg PO BEDTIME [facility] Last Admin: 02/10/17 21:09 Dose: 0.4 mg Temazepam (Restoril) 15 mg PO BEDTIME PRN PRN Reason: Sleep Last Admin: 02/06/17 22:35 Dose: 15 mg Tiotropium [place] (Spiriva Handihaler) 18 mcg INH DAILY [facility] Last Admin: 02/11/17 09:05 Dose: 1 ampule Trazodone HCl (Trazodone) 100 mg PO BEDTIME [facility] Last Admin: 02/10/17 21:09 Dose: 100 mg Vancomycin HCl (Pharmacy To Dose - Vancomycin) 1 dose .XX ASDIRECTED [facility] Discontinued Medications Albuterol/Ipratropium (Duoneb 3.0-0.5 Mg/3 Ml) 3 ml NEB Q4HRRT PRN PRN Reason: Shortness Of Breath/wheezing Last Admin: 02/05/17 17:49 Dose: 3 ml Al Hydroxide/Mg Hydroxide 15 (ml/ Lidocaine HCl 5 ml) 0 ml PO ONETIME ONE Stop: 02/06/17 23:41 Last Admin: 02/07/17 00:04 Dose: 20 each Sodium Chloride (Normal Saline) 1,000 mls @ 999 mls/hr IV STAT ONE Stop: 02/04/17 12:31 Last Admin: 02/04/17 12:05 Dose: 999 mls/hr Azithromycin 500 mg/ Sodium (Chloride) 250 mls @ 250 mls/hr IV Q24H [facility] Last Admin: 02/05/17 16:24 Dose: 250 mls/hr Sodium Chloride (Normal Saline) 1,000 mls @ 50 mls/hr IV ASDIRECTED [facility] Last Admin: 02/10/17 06:30 Dose: 50 mls/hr Vancomycin HCl 1,250 mg/ (Dextrose/Water) 250 mls @ 166.667 mls/hr IV Q12H [facility] Last Admin: 02/05/17 00:37 Dose: 166.667 mls/hr Vancomycin HCl 1,250 mg/ (Sodium Chloride) 250 mls @ 166.667 mls/hr IV Q12H [facility] Last Infusion: 02/08/17 01:30 Dose: Infused Ketorolac Tromethamine (Toradol) 15 mg IVPUSH STAT ONE Stop: 02/04/17 13:38 Last Admin: 02/04/17 13:42 Dose: 15 mg Metformin HCl (Glucophage) 1,500 mg PO BID [facility] Last Admin: 02/06/17 08:08 Dose: 1,500 mg Metoprolol Succinate (Toprol Xl) 25 mg PO DAILY [facility] Last Admin: 02/09/17 08:22 Dose: 25 mg Morphine Sulfate (Morphine) 2 mg IVPUSH Q4H PRN PRN Reason: Pain (moderate 4-6) Last Admin: 02/11/17 10:10 Dose: 2 mg Omeprazole (Omeprazole) 20 mg PO DAILY [facility] Last Admin: 02/06/17 08:08 Dose: 20 mg Oxycodone HCl (Oxycodone) 5 mg PO Q4H PRN PRN Reason: Breakthrough Pain Last Admin: 02/06/17 20:43 Dose: 5 mg Oxycodone HCl (Oxycodone) 10 mg PO Q4H PRN PRN Reason: Breakthrough Pain Last Admin: 02/11/17 08:16 Dose: 10 mg Potassium Chloride (Klor-Con M20) 20 meq PO ONETIME ONE Stop: 02/09/17 10:53 Last Admin: 02/09/17 12:55 Dose: 20 meq Vancomycin HCl (Pharmacy To Dose - Vancomycin) 1 dose .XX ASDIRECTED [facility] - Exam Quality Assessment: supplemental oxygen, urine catheter General: alert, oriented, mild distress HEENT: Pupils equal, Pupils reactive Neck: supple, trachea midline, no JVD Lungs: Decreased breath sounds, Crackles, Rales Cardiovascular: Regular Rate, Regular Rhythm Abdomen: bowel sounds present, soft. No: rebound, guarding Extremities: no edema Skin: ecchymosis Neurological: no new focal deficit Psy/Mental Status: alert, depressed - Problem List & Annotations (1) Pneumonia due to methicillin sensitive Staphylococcus aureus SNOMED Code(s): 397744257096033 Code(s): J15.211 - PNEUMONIA DUE TO METHICILLIN SUSCEP STAPH Status: Acute Current Visit: Yes Qualifiers: Laterality: bilateral Lung location: lower lobe of lung Qualified Code(s) : J15.211 - Pneumonia due to Methicillin susceptible Staphylococcus aureus (2) COPD, Severe chronic obstructive pulmonary disease SNOMED Code(s): 912219821 Code(s): J44.9 - CHRONIC OBSTRUCTIVE PULMONARY DISEASE, UNSPECIFIED Status : Chronic Priority: Medium Current Visit: Yes (3) Ventricular tachyarrhythmia SNOMED Code(s): 67547026, 29163896 Code(s): I47.2 - VENTRICULAR TACHYCARDIA Status: Acute Priority: High Current Visit: Yes Annotation/Comment:: patient evaluated by cardiology. Rate controlled (4) Bacteremia due to Gram-positive bacteria SNOMED Code(s): 215907090300 Code(s): R78.81 - BACTEREMIA Status: Acute Priority: High Current Visit : Yes Annotation/Comment:: blood cultures positive for MSSA. Zosyn 4.5 g IV every 6 hours added. (5) Syncope SNOMED Code(s): 811749233 Code(s): R55 - SYNCOPE AND COLLAPSE Status: Acute Priority: High Current Visit: Yes Qualifiers: Syncope type: unspecified Qualified Code(s): R55 - Syncope and collapse (6) Dehydration SNOMED Code(s): 49884967 Code(s): E86.0 - DEHYDRATION Status: Acute Priority: High Current Visit : Yes (7) Gait disturbance SNOMED Code(s): 38251821 Code(s): R26.9 - UNSPECIFIED ABNORMALITIES OF GAIT AND MOBILITY Status: Chronic Priority: Medium Current Visit: Yes (8) Smoker SNOMED Code(s): 67935591 Code(s): F17.200 - NICOTINE DEPENDENCE, UNSPECIFIED, UNCOMPLICATED Status: Chronic Priority: Medium Current Visit: Yes (9) Diabetes type 2, controlled SNOMED Code(s): 00187850 Code(s): E11.9 - TYPE 2 DIABETES MELLITUS WITHOUT COMPLICATIONS Status: Chronic Priority: High Current Visit: Yes Qualifiers: Diabetes mellitus complication status: without complication Diabetes mellitus oysterman insulin use: without fdc use Qualified Code(s): E11.9 - Type 2 diabetes mellitus without complications - Problem List Review Problem List Initiated/Reviewed/Updated: Yes - My Orders Last 24 Hours: My Active Orders 02/11/17 10:07 Morphine 2 mg IVPUSH Q2H PRN 02/11/17 10:15 Sodium Chloride 0.9% [Normal Saline] 1,000 ml IV ASDIRECTED oxyCODONE 10 mg PO Q4H - Plan Plan:: February 04, 2017: The patient has a been admitted to observation. The patient likely has syncopal episode secondary to dehydration or volume contraction. The patient has not been eating well or drinking well within the past several days. The patient does have a lactic acid of 3.5 and he'll be placed on a lactic as protocol. I've also elected to fluid resuscitate the 71M COPD HTN HLP DM with syncopal episodes admitting Dx MSSA bacteremia, multilobar pneumonia, persistent afib 1. persistent afib: most likely from his current illness bacteria with multilobar PNA, I would do rate control for him, his BP was reasonable I put him on metoprolol 25 BID. Echo prelim poor quality, however I believed grossly normal LVEF, but the regional wall motion cannot be assessed, and the valvular abnormalities cannot be assessed due to limited quality of echo. [id number] = 4 , for afib he would need oysterman Afib, however, he developed bruises on his skin, I would suspected that could be from sepsis, bacteremia. I would hold off ATC and reassess when he recovered. 2. syncope: I believed this is due to his current illness, sepsis MSSA bacteremia. with multilobar PNA. 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 I would reassess when he recovered from this. 3. Sepsis, PNA MSSA bacteremia: on zosyn and vanco, per hospitalist. Feb 10, 2017: The patient is a 71-year-old gentleman who is now been changed to an inpatient. Patient has also developed persistent atrial fibrillation and appears that the patient does have multilobular pneumonia. The patient has been very slow to recover. Also the patient is weak and fatigued and he has at times been refusing physical therapy secondary to the fatigue. The patient will be continued on Zosyn and vancomycin also is been suggested and I have recommended that we add Levaquin for pseudomonal coverage. The patient will remain in a DO NOT RESUSCITATE DO NOT INTUBATE category and I have discussed this with the patient's son who is from [place]. Patient's COPD is otherwise stable and he does require oxygen support to keep his oxygen saturations above 92%. I've also increased the patient's pain medications in order to keep him out of pain in addition to his normal dose of OxyContin. The patient's fluid will be continued as the patient does not have adequate appetite or intake at the present time. Overall at this point I feel the patient still has a poor prognosis. We'll consider transfer possibly to [facility] once patient is otherwise stable and has improved sufficiently. I suggested this to the patient as well as the patient's son as a method of strengthening prior to returning home. The patient will be evaluated and his a treatment plan will be adjusted accordingly. The patient will still continue to have his blood sugars checked a.c. and at bedtime and provided insulin coverage if necessary. Feb 11, 2017: The patient is a 71-year-old gentleman who is admitted secondary to COPD, MSSA bacteremia, multilobular pneumonia and diabetes mellitus a syncopal episodes. The patient's primary concern today is that his pain is not being as well controlled as she would like. The patient is currently on oral when necessary medications as well as IV morphine when necessary for pain. Also , the patient says that his appetite has been very poor. He has not been eating as much. He is feeling weak and fatigued. The patient has been on duo nebs, Levaquin, Zosyn and vancomycin. The patient has exhibited a very slow recovery. The patient also is diabetic and his blood sugars have been controlled with the patient's last blood glucose at 122 mg/dL. Patient's vital signs have been stable and his blood pressure has improved over period of 48 hours. I have ordered a chest x-ray in the morning to better characterize the his overall pulmonary issues. The patient has microbiology which has shown MSSA bacteremia. For now patient will be continued on the antibiotics appropriate for this infection as well as pseudomonal coverage. The patient has been encouraged to ambulate although he has been very tired and fatigued and has refused to do so at times. The patient has experienced slow recovery with increasing fatigue and likely the patient be appropriate for discharge to [facility] in order to undergo strengthening and physical therapy. For now the patient's treatment plan will be continued as a prescribed period he'll be retained don't telemetry. The patient will also be continued to be followed by cardiology and adjustments will be made accordingly. I suspect that the patient will be appropriate for discharge likely tomorrow to [facility].
--- NOTE | 2017-02-11 10:57 | PCM.PN ---
- General Info Functional Status: Denies: pain controlled (pain medication increased), tolerating diet - Review of Systems General: Reports: Weakness, Fatigue HEENT: Reports: no symptoms Pulmonary: Reports: shortness of breath Cardiovascular: Reports: No Symptoms Gastrointestinal: Reports: Decreased appetite Genitourinary: Reports: no symptoms Musculoskeletal: Reports: no symptoms Skin: Reports: bruising Neurological: Reports: No Symptoms Psychiatric: Reports: no symptoms - Patient Data Vitals - most recent: Last Vital Signs Temp 37.3 C 02/11/17 08:00 Pulse 96 02/11/17 08:23 Resp 20 02/11/17 08:00 BP 114/63 02/11/17 08:23 Pulse Ox 93 L 02/11/17 08:00 Weight - most recent: 78.063 kg I&O - last 24 hours: Intake & Output 02/10/17 02/11/17 02/11/17 22:59 06:59 14:59 Intake Total 1050 1350 100 Output Total 650 425 Balance 400 925 100 Lab Results last 24 hrs: Laboratory Results - last 24 hr 02/10/17 02/10/17 02/10/17 Range/Units 11:16 16:53 21:07 WBC (4.0-11.0) K/uL RBC (4.50-5.90) M/uL Hgb (13.0-17.0) g/dL Hct (38.0-50.0) % MCV (80.0-98.0) fL MCH (27.0-32.0) pg MCHC (31.0-37.0) g/dL RDW Std Deviation (28.0-62.0) fl RDW Coeff of Angie (11.0-15.0) % Plt Count (150-400) K/uL MPV (7.40-12.00) fL Add Manual Diff Neutrophils % (Manual) (48.0-80.0) % Band Neutrophils % % Lymphocytes % (Manual) (16.0-40.0) % Monocytes % (Manual) (0.0-15.0) % Metamyelocytes % % Nucleated RBC % /100WBC Absolute Seg Neuts Band Neutrophils # Lymphocytes # (Manual) Monocytes # (Manual) Absolute Metamyelocyte Nucleated RBCs # K/uL Sodium (136-146) mmol/L Potassium (3.5-5.1) mmol/L Chloride (98-110) mmol/L Carbon Dioxide (21-31) mmol/L BUN (6.0-23.0) mg/dL Creatinine (0.6-1.5) mg/dL Est Cr Clr Drug Dosing mL/min Estimated GFR (MDRD) ml/min Glucose (60-110) mg/dL POC Glucose 140 H 131 H 125 H (60-110) mg/dL Calcium (8.8-10.8) mg/dL Phosphorus (2.4-4.7) mg/dL Magnesium (1.5-2.3) mEq/L Total Bilirubin (0.1-1.5) mg/dL AST (5-40) IU/L ALT (8-54) IU/L Alkaline Phosphatase (40-150) Total Protein (6.0-8.0) g/dL Albumin (3.4-4.8) g/dL Globulin (2.0-3.5) g/dL Albumin/Globulin Ratio (1.3-2.8) Vancomycin Trough (5-15) ug/mL 02/10/17 02/11/17 02/11/17 Range/Units 22:25 05:37 05:37 WBC 10.15 (4.0-11.0) K/uL RBC 3.78 L (4.50-5.90) M/uL Hgb 11.3 L (13.0-17.0) g/dL Hct 34.5 L (38.0-50.0) % MCV 91.3 (80.0-98.0) fL MCH 29.9 (27.0-32.0) pg MCHC 32.8 (31.0-37.0) g/dL RDW Std Deviation 52.5 (28.0-62.0) fl RDW Coeff of Angie 16 H (11.0-15.0) % Plt Count 302 (150-400) K/uL MPV 8.80 (7.40-12.00) fL Add Manual Diff YES Neutrophils % (Manual) 74 (48.0-80.0) % Band Neutrophils % 4 % Lymphocytes % (Manual) 16 (16.0-40.0) % Monocytes % (Manual) 5 (0.0-15.0) % Metamyelocytes % 1 % Nucleated RBC % 0.0 /100WBC Absolute Seg Neuts 7.5 Band Neutrophils # 0.4 Lymphocytes # (Manual) 1.6 Monocytes # (Manual) 0.5 Absolute Metamyelocyte 0.1 Nucleated RBCs # 0 K/uL Sodium 142 (136-146) mmol/L Potassium 4.2 (3.5-5.1) mmol/L Chloride 108 (98-110) mmol/L Carbon Dioxide 21 (21-31) mmol/L BUN 21 (6.0-23.0) mg/dL Creatinine 0.7 (0.6-1.5) mg/dL Est Cr Clr Drug Dosing 104.70 mL/min Estimated GFR (MDRD) > 60.0 ml/min Glucose 137 H (60-110) mg/dL POC Glucose (60-110) mg/dL Calcium 7.9 L (8.8-10.8) mg/dL Phosphorus 2.2 L (2.4-4.7) mg/dL Magnesium 1.7 (1.5-2.3) mEq/L Total Bilirubin 0.8 (0.1-1.5) mg/dL AST 14 (5-40) IU/L ALT 15 (8-54) IU/L Alkaline Phosphatase 69 (40-150) Total Protein 5.4 L (6.0-8.0) g/dL Albumin 2.9 L (3.4-4.8) g/dL Globulin 2.5 (2.0-3.5) g/dL Albumin/Globulin Ratio 1.2 L (1.3-2.8) Vancomycin Trough 18.2 H (5-15) ug/mL 02/11/17 02/11/17 Range/Units 06:16 08:21 WBC (4.0-11.0) K/uL RBC (4.50-5.90) M/uL Hgb (13.0-17.0) g/dL Hct (38.0-50.0) % MCV (80.0-98.0) fL MCH (27.0-32.0) pg MCHC (31.0-37.0) g/dL RDW Std Deviation (28.0-62.0) fl RDW Coeff of Angie (11.0-15.0) % Plt Count (150-400) K/uL MPV (7.40-12.00) fL Add Manual Diff Neutrophils % (Manual) (48.0-80.0) % Band Neutrophils % % Lymphocytes % (Manual) (16.0-40.0) % Monocytes % (Manual) (0.0-15.0) % Metamyelocytes % % Nucleated RBC % /100WBC Absolute Seg Neuts Band Neutrophils # Lymphocytes # (Manual) Monocytes # (Manual) Absolute Metamyelocyte Nucleated RBCs # K/uL Sodium (136-146) mmol/L Potassium (3.5-5.1) mmol/L Chloride (98-110) mmol/L Carbon Dioxide (21-31) mmol/L BUN (6.0-23.0) mg/dL Creatinine (0.6-1.5) mg/dL Est Cr Clr Drug Dosing mL/min Estimated GFR (MDRD) ml/min Glucose (60-110) mg/dL POC Glucose 133 H 122 H (60-110) mg/dL Calcium (8.8-10.8) mg/dL Phosphorus (2.4-4.7) mg/dL Magnesium (1.5-2.3) mEq/L Total Bilirubin (0.1-1.5) mg/dL AST (5-40) IU/L ALT (8-54) IU/L Alkaline Phosphatase (40-150) Total Protein (6.0-8.0) g/dL Albumin (3.4-4.8) g/dL Globulin (2.0-3.5) g/dL Albumin/Globulin Ratio (1.3-2.8) Vancomycin Trough (5-15) ug/mL Med Orders - Current: Current Medications Acetaminophen (Tylenol) 650 mg PO Q4H PRN PRN Reason: Pain (Mild 1-3)/fever Last Admin: 02/06/17 19:41 Dose: 650 mg Albuterol/Ipratropium (Duoneb 3.0-0.5 Mg/3 Ml) 3 ml NEB Q4HRRT [facility] Last Admin: 02/11/17 09:31 Dose: 3 ml Bisacodyl (Dulcolax) 10 mg RECTAL DAILY PRN PRN Reason: Constipation Enoxaparin Sodium (Lovenox) 40 mg SUBCUT DAILY [facility] Last Admin: 02/11/17 08:24 Dose: 40 mg Finasteride (Proscar) 5 mg PO DAILY [facility] Last Admin: 02/11/17 08:24 Dose: 5 mg Furosemide (Lasix) 20 mg PO DAILY [facility] Last Admin: 02/11/17 08:23 Dose: 20 mg Piperacillin Sod/Tazobactam (Sod 4.5 gm/ Sodium Chloride) 100 mls @ 100 mls/hr IV Q6H [facility] Last Admin: 02/11/17 06:59 Dose: 100 mls/hr Vancomycin HCl 1,250 mg/ (Sodium Chloride) 250 mls @ 166.667 mls/hr IV Q12H [facility] Last Admin: 02/11/17 10:55 Dose: 166.6 mls/hr Levofloxacin/Dextrose 750 mg/ (Premix) 150 mls @ 100 mls/hr IV Q24H [facility] Last Admin: 02/10/17 13:42 Dose: 100 mls/hr Sodium Chloride (Normal Saline) 1,000 mls @ 75 mls/hr IV ASDIRECTED [facility] Last Admin: 02/11/17 10:47 Dose: 75 mls/hr Magnesium Hydroxide (Milk Of Magnesia) 30 ml PO DAILY [facility] Last Admin: 02/11/17 08:24 Dose: 30 ml Metformin HCl (Glucophage) 1,500 mg PO BIDMEALS [facility] Last Admin: 02/11/17 08:22 Dose: 1,500 mg Metoprolol Tartrate (Lopressor) 25 mg PO Q8H [facility] Last Admin: 02/11/17 08:23 Dose: 25 mg Morphine Sulfate (Morphine) 2 mg IVPUSH Q2H PRN PRN Reason: Pain (moderate 4-6) Omeprazole (Omeprazole) 20 mg PO ACBREAKFAST [facility] Last Admin: 02/11/17 07:00 Dose: 20 mg Ondansetron HCl (Zofran Odt) 4 mg PO Q4H PRN PRN Reason: nausea, able to take PO Last Admin: 02/06/17 08:08 Dose: 4 mg Oxycodone HCl (Oxycontin) 40 mg PO BEDTIME PRN PRN Reason: Pain (severe 7-10) Last Admin: 02/10/17 21:10 Dose: 40 mg Oxycodone HCl (Oxycodone) 10 mg PO Q4H [facility] Last Admin: 02/11/17 10:50 Dose: Not Given Symbicort 160-4.5mcg 1 each INH BID [facility] Last Admin: 02/11/17 09:04 Dose: 1 each Sertraline HCl (Zoloft) 50 mg PO BEDTIME [facility] Last Admin: 02/10/17 21:09 Dose: 50 mg Sodium Chloride (Saline Flush) 10 ml FLUSH ASDIRECTED PRN PRN Reason: Keep Vein Open Last Admin: 02/04/17 12:06 Dose: 10 ml Sodium Chloride (Saline Flush) 2.5 ml FLUSH ASDIRECTED PRN PRN Reason: Keep Vein Open Last Admin: 02/04/17 12:07 Dose: 2.5 ml Tamsulosin HCl (Flomax) 0.4 mg PO BEDTIME [facility] Last Admin: 02/10/17 21:09 Dose: 0.4 mg Temazepam (Restoril) 15 mg PO BEDTIME PRN PRN Reason: Sleep Last Admin: 02/06/17 22:35 Dose: 15 mg Tiotropium Atlas (Spiriva Handihaler) 18 mcg INH DAILY [facility] Last Admin: 02/11/17 09:05 Dose: 1 ampule Trazodone HCl (Trazodone) 100 mg PO BEDTIME [facility] Last Admin: 02/10/17 21:09 Dose: 100 mg Vancomycin HCl (Pharmacy To Dose - Vancomycin) 1 dose .XX ASDIRECTED [facility] Discontinued Medications Albuterol/Ipratropium (Duoneb 3.0-0.5 Mg/3 Ml) 3 ml NEB Q4HRRT PRN PRN Reason: Shortness Of Breath/wheezing Last Admin: 02/05/17 17:49 Dose: 3 ml Al Hydroxide/Mg Hydroxide 15 (ml/ Lidocaine HCl 5 ml) 0 ml PO ONETIME ONE Stop: 02/06/17 23:41 Last Admin: 02/07/17 00:04 Dose: 20 each Sodium Chloride (Normal Saline) 1,000 mls @ 999 mls/hr IV STAT ONE Stop: 02/04/17 12:31 Last Admin: 02/04/17 12:05 Dose: 999 mls/hr Azithromycin 500 mg/ Sodium (Chloride) 250 mls @ 250 mls/hr IV Q24H [facility] Last Admin: 02/05/17 16:24 Dose: 250 mls/hr Sodium Chloride (Normal Saline) 1,000 mls @ 50 mls/hr IV ASDIRECTED [facility] Last Admin: 02/10/17 06:30 Dose: 50 mls/hr Vancomycin HCl 1,250 mg/ (Dextrose/Water) 250 mls @ 166.667 mls/hr IV Q12H [facility] Last Admin: 02/05/17 00:37 Dose: 166.667 mls/hr Vancomycin HCl 1,250 mg/ (Sodium Chloride) 250 mls @ 166.667 mls/hr IV Q12H [facility] Last Infusion: 02/08/17 01:30 Dose: Infused Ketorolac Tromethamine (Toradol) 15 mg IVPUSH STAT ONE Stop: 02/04/17 13:38 Last Admin: 02/04/17 13:42 Dose: 15 mg Metformin HCl (Glucophage) 1,500 mg PO BID [facility] Last Admin: 02/06/17 08:08 Dose: 1,500 mg Metoprolol Succinate (Toprol Xl) 25 mg PO DAILY [facility] Last Admin: 02/09/17 08:22 Dose: 25 mg Morphine Sulfate (Morphine) 2 mg IVPUSH Q4H PRN PRN Reason: Pain (moderate 4-6) Last Admin: 02/11/17 10:10 Dose: 2 mg Omeprazole (Omeprazole) 20 mg PO DAILY [facility] Last Admin: 02/06/17 08:08 Dose: 20 mg Oxycodone HCl (Oxycodone) 5 mg PO Q4H PRN PRN Reason: Breakthrough Pain Last Admin: 02/06/17 20:43 Dose: 5 mg Oxycodone HCl (Oxycodone) 10 mg PO Q4H PRN PRN Reason: Breakthrough Pain Last Admin: 02/11/17 08:16 Dose: 10 mg Potassium Chloride (Klor-Con M20) 20 meq PO ONETIME ONE Stop: 02/09/17 10:53 Last Admin: 02/09/17 12:55 Dose: 20 meq Vancomycin HCl (Pharmacy To Dose - Vancomycin) 1 dose .XX ASDIRECTED [facility] - Exam Quality Assessment: supplemental oxygen, urine catheter General: alert, oriented - Problem List & Annotations (1) COPD, Severe chronic obstructive pulmonary disease SNOMED Code(s): 787752171 Code(s): J44.9 - CHRONIC OBSTRUCTIVE PULMONARY DISEASE, UNSPECIFIED Status : Chronic Priority: Medium Current Visit: Yes (2) Ventricular tachyarrhythmia SNOMED Code(s): 11337953, 38411246 Code(s): I47.2 - VENTRICULAR TACHYCARDIA Status: Acute Priority: High Current Visit: Yes Annotation/Comment:: patient evaluated by cardiology. Rate controlled (3) Bacteremia due to Gram-positive bacteria SNOMED Code(s): 063512990773 Code(s): R78.81 - BACTEREMIA Status: Acute Priority: High Current Visit : Yes Annotation/Comment:: blood cultures positive for MSSA. Zosyn 4.5 g IV every 6 hours added. (4) Syncope SNOMED Code(s): 128935067 Code(s): R55 - SYNCOPE AND COLLAPSE Status: Acute Priority: High Current Visit: Yes Qualifiers: Syncope type: unspecified Qualified Code(s): R55 - Syncope and collapse (5) Dehydration SNOMED Code(s): 23460699 Code(s): E86.0 - DEHYDRATION Status: Acute Priority: High Current Visit : Yes (6) Gait disturbance SNOMED Code(s): 04073160 Code(s): R26.9 - UNSPECIFIED ABNORMALITIES OF GAIT AND MOBILITY Status: Chronic Priority: Medium Current Visit: Yes (7) Smoker SNOMED Code(s): 25188287 Code(s): F17.200 - NICOTINE DEPENDENCE, UNSPECIFIED, UNCOMPLICATED Status: Chronic Priority: Medium Current Visit: Yes (8) Diabetes type 2, controlled SNOMED Code(s): 67429234 Code(s): E11.9 - TYPE 2 DIABETES MELLITUS WITHOUT COMPLICATIONS Status: Chronic Priority: High Current Visit: Yes Qualifiers: Diabetes mellitus complication status: without complication Diabetes mellitus custodial insulin use: without director long term care use Qualified Code(s): E11.9 - Type 2 diabetes mellitus without complications - My Orders Last 24 Hours: My Active Orders 02/11/17 10:07 Morphine 2 mg IVPUSH Q2H PRN 02/11/17 10:15 Sodium Chloride 0.9% [Normal Saline] 1,000 ml IV ASDIRECTED oxyCODONE 10 mg PO Q4H - Plan Plan:: February 04, 2017: The patient has a been admitted to observation. The patient likely has syncopal episode secondary to dehydration or volume contraction. The patient has not been eating well or drinking well within the past several days. The patient does have a lactic acid of 3.5 and he'll be placed on a lactic as protocol. I've also elected to fluid resuscitate the 71M COPD HTN HLP DM with syncopal episodes admitting Dx MSSA bacteremia, multilobar pneumonia, persistent afib 1. persistent afib: most likely from his current illness bacteria with multilobar PNA, I would do rate control for him, his BP was reasonable I put him on metoprolol 25 BID. Echo prelim poor quality, however I believed grossly normal LVEF, but the regional wall motion cannot be assessed, and the valvular abnormalities cannot be assessed due to limited quality of echo. [id number] = 4 , for afib he would need director long term care Afib, however, he developed bruises on his skin, I would suspected that could be from sepsis, bacteremia. I would hold off ATC and reassess when he recovered. 2. syncope: I believed this is due to his current illness, sepsis MSSA bacteremia. with multilobar PNA. 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 I would reassess when he recovered from this. 3. Sepsis, PNA MSSA bacteremia: on zosyn and vanco, per hospitalist. Feb 10, 2017: The patient is a 71-year-old gentleman who is now been changed to an inpatient. Patient has also developed persistent atrial fibrillation and appears that the patient does have multilobular pneumonia. The patient has been very slow to recover. Also the patient is weak and fatigued and he has at times been refusing physical therapy secondary to the fatigue. The patient will be continued on Zosyn and vancomycin also is been suggested and I have recommended that we add Levaquin for pseudomonal coverage. The patient will remain in a DO NOT RESUSCITATE DO NOT INTUBATE category and I have discussed this with the patient's son who is from [place]. Patient's COPD is otherwise stable and he does require oxygen support to keep his oxygen saturations above 92%. I've also increased the patient's pain medications in order to keep him out of pain in addition to his normal dose of OxyContin. The patient's fluid will be continued as the patient does not have adequate appetite or intake at the present time. Overall at this point I feel the patient still has a poor prognosis. We'll consider transfer possibly to [facility] once patient is otherwise stable and has improved sufficiently. I suggested this to the patient as well as the patient's son as a method of strengthening prior to returning home. The patient will be evaluated and his a treatment plan will be adjusted accordingly. The patient will still continue to have his blood sugars checked a.c. and at bedtime and provided insulin coverage if necessary.
[2017-02-11] MEDS: Levofloxacin/Dextrose 5%-Water 750 MG in Premix Bag 1 BAG IV SCH (13:54)
[2017-02-11] MEDS ORDERED: Docusate Sodium 100 MG Cap PO ONE (15:02)
[2017-02-11] MEDS ORDERED: Magnesium Sulfate/Water 2 GM in Premix Bag 1 BAG IV ONE (15:07)
[2017-02-11] MEDS: traZODone 50 MG Tab PO SCH (20:48)
[2017-02-11] MEDS: Sertraline 50 MG Tab PO SCH (20:48)
[2017-02-11] MEDS: Tamsulosin 0.4 MG Cap.ER PO SCH (20:48)
[2017-02-11] MEDS: Temazepam 15 MG Cap PO PRN (23:04)
[2017-02-12] MEDS: Metoprolol Tartrate 25 MG Tab PO SCH ×3 (00:08→16:57)
[2017-02-12] MEDS: oxyCODONE ER 20 MG TAB.ER PO PRN (00:14)
[2017-02-12] MEDS: Piperacillin/Tazobactam 4.5 GM in Sodium Chloride 0.9% 100 ML IV SCH ×2 (01:08→06:37)
[2017-02-12] MEDS: oxyCODONE 5 MG Tab PO SCH ×2 (02:14→06:37)
[2017-02-12] MEDS: Albuterol/Ipratropium 3.0-0.5 MG/3 ML Neb Soln NEB SCH ×6 (02:15→21:29)
[2017-02-12] MEDS: Omeprazole 20 MG Cap.CR PO SCH (06:38)
[2017-02-12 07:04] LABS: CHLORIDE,CL 106 mmol/L (98-110); SODIUM,NA 138 mmol/L (136-146)
[2017-02-12] MEDS: Finasteride 5 MG Tab PO SCH (08:20)
[2017-02-12] MEDS: Furosemide 20 MG Tab PO SCH (08:20)
[2017-02-12] MEDS: metFORMIN 500 MG Tab PO SCH ×2 (08:21→16:57)
[2017-02-12] MEDS: Enoxaparin 40 MG/0.4 ML Syringe SUBCUT SCH (08:21)
[2017-02-12] MEDS: Magnesium Hydroxide 400 MG/5 ML Susp 30 ML Cup PO SCH (08:21)
[2017-02-12] MEDS ORDERED: traZODone 50 MG Tab PO SCH (08:49)
[2017-02-12] MEDS: SYMBICORT 160-4.5MCG INH SCH ×2 (09:01→21:29)
[2017-02-12] MEDS: Tiotropium Inhaler 18 MCG Inhalation Powder Cap Kit of 5 INH SCH (09:02)
--- NOTE | 2017-02-12 09:02 | PCM.PN ---
- General Info Date of Service: 02/12/17 Admission Dx/Problem (Free Text): 71M COPD HTN HLP DM with syncopal episodes admitting Dx MSSA bacteremia, multilobar pneumonia, persistent afib Subjective Update: Abdominal pain. Not new. Very sedated. No sig cough and denies SOB. Burrows in. - Patient Data Vitals - most recent: Last Vital Signs Temp 37.1 C 02/12/17 08:00 Pulse 95 02/12/17 08:20 Resp 20 02/12/17 08:00 BP 138/81 02/12/17 08:20 Pulse Ox 96 02/12/17 08:00 Weight - most recent: 78.063 kg I&O - last 24 hours: Intake & Output 02/11/17 02/12/17 02/12/17 22:59 06:59 14:59 Intake Total 2909 1250 Output Total 430 500 Balance 2479 750 Lab Results last 24 hrs: Laboratory Results - last 24 hr 02/11/17 02/11/17 02/12/17 Range/Units 16:19 20:53 06:34 WBC 10.51 (4.0-11.0) K/uL RBC 3.78 L (4.50-5.90) M/uL Hgb 11.2 L (13.0-17.0) g/dL Hct 34.7 L (38.0-50.0) % MCV 91.8 (80.0-98.0) fL MCH 29.6 (27.0-32.0) pg MCHC 32.3 (31.0-37.0) g/dL RDW Std Deviation 50.2 (28.0-62.0) fl RDW Coeff of Angie 15 (11.0-15.0) % Plt Count 353 (150-400) K/uL MPV 8.40 (7.40-12.00) fL Add Manual Diff YES Neutrophils % (Manual) 81 H (48.0-80.0) % Band Neutrophils % 4 % Lymphocytes % (Manual) 13 L (16.0-40.0) % Monocytes % (Manual) 2 (0.0-15.0) % Absolute Seg Neuts 8.5 Band Neutrophils # 0.4 Lymphocytes # (Manual) 1.4 Monocytes # (Manual) 0.2 Sodium (136-146) mmol/L Potassium (3.5-5.1) mmol/L Chloride (98-110) mmol/L Carbon Dioxide (21-31) mmol/L BUN (6.0-23.0) mg/dL Creatinine (0.6-1.5) mg/dL Est Cr Clr Drug Dosing mL/min Estimated GFR (MDRD) ml/min Glucose (60-110) mg/dL POC Glucose 143 H 121 H (60-110) mg/dL Hemoglobin A1c (0.0-6.0) % Calcium (8.8-10.8) mg/dL Total Bilirubin (0.1-1.5) mg/dL AST (5-40) IU/L ALT (8-54) IU/L Alkaline Phosphatase (40-150) Total Protein (6.0-8.0) g/dL Albumin (3.4-4.8) g/dL Globulin (2.0-3.5) g/dL Albumin/Globulin Ratio (1.3-2.8) 02/12/17 02/12/17 02/12/17 Range/Units 06:34 06:34 06:44 WBC (4.0-11.0) K/uL RBC (4.50-5.90) M/uL Hgb (13.0-17.0) g/dL Hct (38.0-50.0) % MCV (80.0-98.0) fL MCH (27.0-32.0) pg MCHC (31.0-37.0) g/dL RDW Std Deviation (28.0-62.0) fl RDW Coeff of Angie (11.0-15.0) % Plt Count (150-400) K/uL MPV (7.40-12.00) fL Add Manual Diff Neutrophils % (Manual) (48.0-80.0) % Band Neutrophils % % Lymphocytes % (Manual) (16.0-40.0) % Monocytes % (Manual) (0.0-15.0) % Absolute Seg Neuts Band Neutrophils # Lymphocytes # (Manual) Monocytes # (Manual) Sodium 138 (136-146) mmol/L Potassium 3.8 (3.5-5.1) mmol/L Chloride 106 (98-110) mmol/L Carbon Dioxide 20 L (21-31) mmol/L BUN 25 H (6.0-23.0) mg/dL Creatinine 0.8 (0.6-1.5) mg/dL Est Cr Clr Drug Dosing 91.61 mL/min Estimated GFR (MDRD) > 60.0 ml/min Glucose 149 H (60-110) mg/dL POC Glucose 136 H (60-110) mg/dL Hemoglobin A1c 7.4 H (0.0-6.0) % Calcium 7.7 L (8.8-10.8) mg/dL Total Bilirubin 0.6 (0.1-1.5) mg/dL AST 17 (5-40) IU/L ALT 17 (8-54) IU/L Alkaline Phosphatase 71 (40-150) Total Protein 5.1 L (6.0-8.0) g/dL Albumin 2.7 L (3.4-4.8) g/dL Globulin 2.4 (2.0-3.5) g/dL Albumin/Globulin Ratio 1.1 L (1.3-2.8) Med Orders - Current: Current Medications Acetaminophen (Tylenol) 650 mg PO Q4H PRN PRN Reason: Pain (Mild 1-3)/fever Last Admin: 02/06/17 19:41 Dose: 650 mg Albuterol/Ipratropium (Duoneb 3.0-0.5 Mg/3 Ml) 3 ml NEB Q4HRRT [facility] Last Admin: 02/12/17 05:53 Dose: 3 ml Bisacodyl (Dulcolax) 10 mg RECTAL DAILY PRN PRN Reason: Constipation Last Admin: 02/11/17 16:51 Dose: 10 mg Doxycycline Hyclate (Vibramycin) 100 mg PO Q12HR [facility] Enoxaparin Sodium (Lovenox) 40 mg SUBCUT DAILY [facility] Last Admin: 02/12/17 08:21 Dose: 40 mg Sodium Chloride (Normal Saline) 1,000 mls @ 75 mls/hr IV ASDIRECTED [facility] Last Admin: 02/11/17 10:47 Dose: 75 mls/hr Magnesium Hydroxide (Milk Of Magnesia) 30 ml PO DAILY [facility] Last Admin: 02/12/17 08:21 Dose: 30 ml Metformin HCl (Glucophage) 1,500 mg PO BIDMEALS [facility] Last Admin: 02/12/17 08:21 Dose: 1,500 mg Metoprolol Tartrate (Lopressor) 25 mg PO Q8H [facility] Last Admin: 02/12/17 08:20 Dose: 25 mg Omeprazole (Omeprazole) 20 mg PO ACBREAKFAST [facility] Last Admin: 02/12/17 06:38 Dose: 20 mg Ondansetron HCl (Zofran Odt) 4 mg PO Q4H PRN PRN Reason: nausea, able to take PO Last Admin: 02/06/17 08:08 Dose: 4 mg Oxycodone HCl (Oxycontin) 40 mg PO BEDTIME PRN PRN Reason: Pain (severe 7-10) Last Admin: 02/12/17 00:14 Dose: 40 mg Oxycodone HCl (Oxycodone) 5 mg PO Q4H PRN PRN Reason: Pain Symbicort 160-4.5mcg 1 each INH BID [facility] Last Admin: 02/11/17 20:23 Dose: 1 each Sertraline HCl (Zoloft) 50 mg PO BEDTIME [facility] Last Admin: 02/11/17 20:48 Dose: 50 mg Sodium Chloride (Saline Flush) 10 ml FLUSH ASDIRECTED PRN PRN Reason: Keep Vein Open Last Admin: 02/04/17 12:06 Dose: 10 ml Sodium Chloride (Saline Flush) 2.5 ml FLUSH ASDIRECTED PRN PRN Reason: Keep Vein Open Last Admin: 02/04/17 12:07 Dose: 2.5 ml Tamsulosin HCl (Flomax) 0.4 mg PO BEDTIME [facility] Last Admin: 02/11/17 20:48 Dose: 0.4 mg Temazepam (Restoril) 15 mg PO BEDTIME PRN PRN Reason: Sleep Last Admin: 02/11/17 23:04 Dose: 15 mg Tiotropium [place] (Spiriva Handihaler) 18 mcg INH DAILY [facility] Last Admin: 02/11/17 20:24 Dose: 1 ampule Trazodone HCl (Trazodone) 50 mg PO BEDTIME [facility] Vancomycin HCl (Pharmacy To Dose - Vancomycin) 1 dose .XX ASDIRECTED [facility] Discontinued Medications Albuterol/Ipratropium (Duoneb 3.0-0.5 Mg/3 Ml) 3 ml NEB Q4HRRT PRN PRN Reason: Shortness Of Breath/wheezing Last Admin: 02/05/17 17:49 Dose: 3 ml Al Hydroxide/Mg Hydroxide 15 (ml/ Lidocaine HCl 5 ml) 0 ml PO ONETIME ONE Stop: 02/06/17 23:41 Last Admin: 02/07/17 00:04 Dose: 20 each Docusate Sodium (Colace) 100 mg PO ONETIME ONE Stop: 02/11/17 15:03 Last Admin: 02/11/17 15:20 Dose: 100 mg Finasteride (Proscar) 5 mg PO DAILY [facility] Last Admin: 02/12/17 08:20 Dose: 5 mg Furosemide (Lasix) 20 mg PO DAILY [facility] Last Admin: 02/12/17 08:20 Dose: 20 mg Sodium Chloride (Normal Saline) 1,000 mls @ 999 mls/hr IV STAT ONE Stop: 02/04/17 12:31 Last Admin: 02/04/17 12:05 Dose: 999 mls/hr Azithromycin 500 mg/ Sodium (Chloride) 250 mls @ 250 mls/hr IV Q24H [facility] Last Admin: 02/05/17 16:24 Dose: 250 mls/hr Sodium Chloride (Normal Saline) 1,000 mls @ 50 mls/hr IV ASDIRECTED [facility] Last Admin: 02/10/17 06:30 Dose: 50 mls/hr Vancomycin HCl 1,250 mg/ (Dextrose/Water) 250 mls @ 166.667 mls/hr IV Q12H [facility] Last Admin: 02/05/17 00:37 Dose: 166.667 mls/hr Vancomycin HCl 1,250 mg/ (Sodium Chloride) 250 mls @ 166.667 mls/hr IV Q12H [facility] Last Infusion: 02/08/17 01:30 Dose: Infused Piperacillin Sod/Tazobactam (Sod 4.5 gm/ Sodium Chloride) 100 mls @ 100 mls/hr IV Q6H [facility] Last Admin: 02/12/17 06:37 Dose: 100 mls/hr Vancomycin HCl 1,250 mg/ (Sodium Chloride) 250 mls @ 166.667 mls/hr IV Q12H [facility] Last Admin: 02/11/17 23:05 Dose: 166.6 mls/hr Levofloxacin/Dextrose 750 mg/ (Premix) 150 mls @ 100 mls/hr IV Q24H [facility] Last Admin: 02/11/17 13:54 Dose: 100 mls/hr Magnesium Sulfate 2 gm/ Premix 50 mls @ 50 mls/hr IV ONETIME ONE Stop: 02/11/17 16:06 Last Admin: 02/11/17 15:20 Dose: 50 mls/hr Ketorolac Tromethamine (Toradol) 15 mg IVPUSH STAT ONE Stop: 02/04/17 13:38 Last Admin: 02/04/17 13:42 Dose: 15 mg Metformin HCl (Glucophage) 1,500 mg PO BID [facility] Last Admin: 02/06/17 08:08 Dose: 1,500 mg Metoprolol Succinate (Toprol Xl) 25 mg PO DAILY [facility] Last Admin: 02/09/17 08:22 Dose: 25 mg Morphine Sulfate (Morphine) 2 mg IVPUSH Q4H PRN PRN Reason: Pain (moderate 4-6) Last Admin: 02/11/17 10:10 Dose: 2 mg Morphine Sulfate (Morphine) 2 mg IVPUSH Q2H PRN PRN Reason: Pain (moderate 4-6) Last Admin: 02/11/17 19:18 Dose: 2 mg Omeprazole (Omeprazole) 20 mg PO DAILY [facility] Last Admin: 02/06/17 08:08 Dose: 20 mg Oxycodone HCl (Oxycodone) 5 mg PO Q4H PRN PRN Reason: Breakthrough Pain Last Admin: 02/06/17 20:43 Dose: 5 mg Oxycodone HCl (Oxycodone) 10 mg PO Q4H PRN PRN Reason: Breakthrough Pain Last Admin: 02/11/17 08:16 Dose: 10 mg Oxycodone HCl (Oxycodone) 10 mg PO Q4H [facility] Last Admin: 02/12/17 06:37 Dose: 10 mg Potassium Chloride (Klor-Con M20) 20 meq PO ONETIME ONE Stop: 02/09/17 10:53 Last Admin: 02/09/17 12:55 Dose: 20 meq Trazodone HCl (Trazodone) 100 mg PO BEDTIME [facility] Last Admin: 02/11/17 20:48 Dose: 100 mg Vancomycin HCl (Pharmacy To Dose - Vancomycin) 1 dose .XX ASDIRECTED [facility] - Exam Quality Assessment: supplemental oxygen General: sedated Lungs: Decreased breath sounds, Crackles Cardiovascular: Regular Rate, Regular Rhythm Abdomen: bowel sounds present, soft, no distension, tenderness. No: rebound, guarding Extremities: no edema, normal pulses Neurological: no new focal deficit - Problem List Review Problem List Initiated/Reviewed/Updated: Yes - My Orders Last 24 Hours: My Active Orders 02/11/17 19:49 Communication Order [RC] ROUTINE 02/12/17 08:49 traZODone 50 mg PO BEDTIME 02/12/17 08:51 oxyCODONE 5 mg PO Q4H PRN 02/12/17 09:00 Doxycycline [Vibramycin] 100 mg PO Q12HR - Assessment Assessment:: ASSESSMENT: MSSA CAP/Bacteremia Syncope presumably due to above Chronic pancreatitis/chronic pain/opioid dependence Oversedation from opioid's Anemia Poor po intake Debility COPD--severe DM2--ok BPH - Plan Plan:: PLAN: DC all IV abx. Begin PO Doxy SL IVF Stop furosemide RT/O2 PT Stop Proscar Remove Burrows in AM Prob ready for SNF tomorrow 02/13/17
[2017-02-12] MEDS: Doxycycline 100 MG Cap PO SCH ×2 (09:15→21:09)
[2017-02-12] MEDS ORDERED: Sodium Chloride 0.9% 10 ML Syringe FLUSH PRN (09:42)
[2017-02-12] MEDS ORDERED: Sodium Chloride 0.9% 2.5 ML Syringe FLUSH PRN (09:42)
--- NOTE | 2017-02-12 11:54 | CR ---
EXAM DATE: 02/05/17 PATIENT'S AGE: 71 Patient: SAMUEL HUNT Facility: [place], [place] Site . Site : 1945 Study: XRay Chest [id number]/2017 8:27:46 AM Ordering Physician: Amber Basilio Final Report: HISTORY: Pneumonia. Comparison: Chest, 2 views 02/05/2017. Technique: Chest, 1 view portable. Findings: compliance associate leads overlie the patient. There is a pleural-based opacity at the right lung apex, with volume loss. This is similar to previous. There are airspace opacities present at the left lung base, new. There is no pneumothorax. There is volume loss in the right hemithorax, with contralateral pulmonary hyperinflation. Chronic appearing right rib fractures. Central airway is normal. Heart size and pulmonary vasculature are stable. Impression: 1. Right apical, pleural-based opacity is stable. 2. New airspace opacities at the left lung base. This could represent atelectasis or developing pneumonia. Radiographic followup is advised to document resolution. Dictated by Brandon Rush MD @ Feb 12 2017 8:01AM (Electronic Signature) Report Signed by Proxy. GARDENIA
--- NOTE | 2017-02-12 12:08 | CR ---
EXAMINATION: Portable chest radiograph. HISTORY: Shortness of breath. FINDINGS: There is moderate pulmonary scarring most prominent within the right apex. Mild bibasilar atelectasi s and/or infiltrate is not excluded. The heart is normal in size. A trace pleural effusion cannot be excluded bilaterally. No pneumothorax. Osseous structures appear unremarkable. IMPRESSION: 1. Chronic interstitial prominence and bilateral scarring, however there are stable increased opacit ies within the lung bases bilaterally. 2. Trace bilateral pleural effusions cannot be excluded.
[2017-02-12] MEDS: Tamsulosin 0.4 MG Cap.ER PO SCH (21:09)
[2017-02-12] MEDS: Sertraline 50 MG Tab PO SCH (21:10)
[2017-02-13] MEDS: oxyCODONE ER 20 MG TAB.ER PO PRN (00:04)
[2017-02-13] MEDS: Metoprolol Tartrate 25 MG Tab PO SCH ×2 (00:04→08:34)
[2017-02-13] MEDS: Albuterol/Ipratropium 3.0-0.5 MG/3 ML Neb Soln NEB SCH ×3 (02:38→09:28)
--- NOTE | 2017-02-13 06:20 | CONS ---
DATE OF CONSULTATION: DATE OF : 1945 PRIMARY CARE PHYSICIAN: None PCP REASON FOR CONSULTATION: Atrial fibrillation. HISTORY OF PRESENT ILLNESS: This is a 71-year-old male with history of COPD, hypertension, hyperlipidemia, and diabetes, A1c is 7.1, presented to the hospital because of weakness and passing out. History was partially taken from the patient as well as a note because the patient has altered mental status. He stated that over the past few weeks, he has been feeling weak, cannot eat or drink as he is supposed to, on the day of admission when he was walking to the kitchen all of a sudden, he was passing out without warning sign. He denied any chest pain or palpitations prior to passing out and then he was in the emergency room. Initial vital signs, is 115/59, however, when he was admitted to the hospital, his blood pressure sometimes dropped down to 90 over 50s, and apparently initially he was treated as a COPD with acute exacerbation. He was given IV antibiotic and later on with a blood culture, it came out positive for MSSA and antibiotic was escalated to Zosyn and vancomycin. The source of infection is still unclear, however, his urinalysis shows Staph epidermidis. He denied history of heart problems in the past, also never had any testing for his cardiac condition. He has been also given with hydration as well. The head CT also was done and there was no intracranial hemorrhage. A chest x-ray possibly showed chronic changes in his right upper lobe and has been unchanged as well. PAST MEDICAL HISTORY: Including COPD, hypertension, hyperlipidemia, and diabetes. MEDICATIONS: Lasix 20 mg once a day, metformin, and oxycodone. ALLERGIES: No known drug allergies. SOCIAL HISTORY: Current smoking, occasional alcohol use, no drug use. He is retired. He is . He has lost his 2 years ago. PAST SURGICAL HISTORY: History of lobectomy as well as a bowel resection. REVIEW OF SYSTEMS: A 12-point review of systems has been negative except as indicated in the HPI. PHYSICAL EXAMINATION: VITAL SIGNS: Currently blood pressure is 129/63, heart rate of 85 to 100, O2 saturation 94 on 2 L, temperature 36.6. HEENT: Mild pale, no jaundice. NECK: No JVD. HEART: Normal S1, S2. Irregular rhythm. No murmur. LUNGS: Clear bilaterally. ABDOMEN: Soft, nontender. Bowel sounds are present. No hepatosplenomegaly. EXTREMITIES: No edema. LABORATORY INVESTIGATION: The blood culture is growing MSSA for two bottles. Current CBC shows WBC 7, hematocrit 31, hemoglobin 10, platelet 265. Sodium 141, potassium 3.4, chloride 109, bicarb 20, BUN 17, creatinine 0.7, glucose 147, calcium 7.8. EKG on february 04, 2017 shows sinus rhythm with PACs, heart rate of 80, SALLY interval 170, QRS duration 133, QTc 497. 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 On EKG on February 04, 2017 shows right bundle-branch block pattern with possible MAT versus atrial fibrillation, but I would lean towards more MAT. ASSESSMENT AND PLAN: This is a 71-year-old male, history of diabetes hypertension hyperlipidemia, and chronic obstructive pulmonary disease presented to the hospital with MSSA bacteremia with passing out and also irregular heart rate. The ideology of syncope I believe might be related to dehydration as well as bacteremia infection. The blood culture is growing MSSA. I was recommended to do the echocardiogram to see any valvular damage from bacteremia as any evidence of endocarditis as well as continue antibiotic per hospitalist. This sources of infection of MSSA is still unclear. Regarding his passing out and abnormal EKG, I would recommend to do the Holter monitor when he was discharged from the hospital and he does have an abnormal EKG showing right bundle-branch block pattern as well as a left anterior fascicular block. He may need a pacemaker because of syncope, however, at this time this syncope I think lean towards more because of some other problem including infection, bacteremia, and dehydration. I would still recommend to do the Holter monitor and then see any evidence of advanced avascular and AV block. Regarding his fast heart rate, I will start him on a very low dose of Toprol-XL of 25 mg and then watch him on telemetry. MIRIAN / JAYY /[id number]
[2017-02-13] MEDS: Omeprazole 20 MG Cap.CR PO SCH (06:34)
[2017-02-13] MEDS: oxyCODONE 5 MG Tab PO PRN ×2 (06:34→14:04)
[2017-02-13] MEDS: metFORMIN 500 MG Tab PO SCH (08:33)
[2017-02-13] MEDS: Magnesium Hydroxide 400 MG/5 ML Susp 30 ML Cup PO SCH (08:33)
[2017-02-13] MEDS: Doxycycline 100 MG Cap PO SCH (08:34)
[2017-02-13] MEDS: Enoxaparin 40 MG/0.4 ML Syringe SUBCUT SCH (08:34)
--- NOTE | 2017-02-13 09:19 | PCM.DCSUM1 ---
Discharge Summary - Hospital Course Free Text/Narrative:: 71 yo M admitted with CAP and bacteremia due to MSSA. Also has severe COPD. Treated with 3 different IV ABX. Stablized. Treated with O2, nebs, and pain meds. When I first met him yesterday, he was very sedated on scheduled oxycodone. I stopped it. More alert today. C/O abd pain and his chronic dyspnea. Fatigue and weakness as well. No other c/ o except he would rather go home and not to [facility]. 40 min discharge: I spoke with RN, APPRAISER LAND, Hospice nurse, Des, his son (and also EBONI) by phone, and his daughter here in person. Plan is to go to [facility] with hospice while the family arranges things for him to go home with hospice. I also spoke with Dr. Addison yesterday. HPI Initial Comments: See HPI Brief History: See above - Discharge Data Discharge Date: 02/13/17 Discharge Disposition: DC/Tfer to [facility]ospice[facility] Condition: Fair - Discharge Diagnosis/Problem(s) (1) Bacteremia due to Gram-positive bacteria SNOMED Code(s): 859222385759 ICD Code: R78.81 - BACTEREMIA Status: Acute Priority: High Current Visit: Yes Problem Details: blood cultures positive for MSSA. Zosyn 4.5 g IV every 6 hours added. (2) Dehydration SNOMED Code(s): 59768754 ICD Code: E86.0 - DEHYDRATION Status: Acute Priority: High Current Visit: Yes (3) Pneumonia due to methicillin sensitive Staphylococcus aureus SNOMED Code(s): 517888773958020 ICD Code: J15.211 - PNEUMONIA DUE TO METHICILLIN SUSCEP STAPH Status: Acute Current Visit: Yes Qualifiers: Laterality: bilateral Lung location: lower lobe of lung Qualified Code(s) : J15.211 - Pneumonia due to Methicillin susceptible Staphylococcus aureus (4) Syncope SNOMED Code(s): 389175789 ICD Code: R55 - SYNCOPE AND COLLAPSE Status: Acute Priority: High Current Visit: Yes Qualifiers: Syncope type: unspecified Qualified Code(s): R55 - Syncope and collapse (5) Ventricular tachyarrhythmia SNOMED Code(s): 02942890, 13064306 ICD Code: I47.2 - VENTRICULAR TACHYCARDIA Status: Acute Priority: High Current Visit: Yes Problem Details: patient evaluated by cardiology. Rate controlled (6) COPD, Severe chronic obstructive pulmonary disease SNOMED Code(s): 652002986 ICD Code: J44.9 - CHRONIC OBSTRUCTIVE PULMONARY DISEASE, UNSPECIFIED Status : Chronic Priority: Medium Current Visit: Yes (7) Diabetes type 2, controlled SNOMED Code(s): 53194059 ICD Code: E11.9 - TYPE 2 DIABETES MELLITUS WITHOUT COMPLICATIONS Status: Chronic Priority: High Current Visit: Yes Qualifiers: Diabetes mellitus complication status: without complication Diabetes mellitus supervisor intermediates insulin use: without supervisor intermediates use Qualified Code(s): E11.9 - Type 2 diabetes mellitus without complications (8) Gait disturbance SNOMED Code(s): 61648191 ICD Code: R26.9 - UNSPECIFIED ABNORMALITIES OF GAIT AND MOBILITY Status: Chronic Priority: Medium Current Visit: Yes - Patient Summary/Data Consults: Consultations 02/08/17 14:42 Consult to Physician [CONS] Routine 02/12/17 15:50 Consult to Hospice [CONS] Routine - Discharge Plan Home Medications: Home Meds Budesonide/Formoterol [Symbicort 160-4.5 MCG] 1 puff INH BID 02/04/17 [History] Esomeprazole Magnesium [Nexium 24Hr] 22.3 mg PO DAILY 02/04/17 [History] Finasteride 5 mg PO DAILY 02/04/17 [History] Furosemide [Lasix] 20 mg PO DAILY 02/04/17 [History] Meloxicam 7.5 mg PO DAILY 02/04/17 [History] Metoclopramide [Reglan] 5 mg PO BID 02/04/17 [History] Sertraline [Zoloft] 50 mg PO BEDTIME 02/04/17 [History] Tamsulosin Hcl [IJD: Tamsulosin HCl] 0.4 mg PO BEDTIME 02/04/17 [History] Tiotropium [Spiriva HandiHaler] 18 mcg INH DAILY 02/04/17 [History] Zolpidem [Ambien] 5 mg PO BEDTIME 02/04/17 [History] metFORMIN HCl [Metformin HCl] 1,500 mg PO BID 02/04/17 [History] traZODone HCl [Trazodone HCl] 100 mg PO BEDTIME 02/04/17 [History] Referrals: PCP,None [Primary Care Provider] - - General Info Date of Service: 02/13/17 Admission Dx/Problem (Free Text: see hpi Subjective Update: Abdominal pain. Not new. Very sedated. No sig cough and denies SOB. Burrows in. Functional Status: Reports: pain controlled - Review of Systems General: Reports: Weakness, Fatigue HEENT: Reports: no symptoms Pulmonary: Reports: shortness of breath, cough Cardiovascular: Reports: No Symptoms Gastrointestinal: Reports: Abdominal pain Genitourinary: Reports: retention Musculoskeletal: Reports: no symptoms Skin: Reports: no symptoms Neurological: Reports: No Symptoms Psychiatric: Reports: depression - Patient Data Vitals - Most Recent: Last Vital Signs Temp 36.9 C 02/13/17 07:57 Pulse 78 02/13/17 08:34 Resp 22 H 02/13/17 07:57 BP 115/75 02/13/17 08:34 Pulse Ox 92 L 02/13/17 07:57 Weight - Most Recent: 78.063 kg I&O - Last 24 hours: Intake & Output 02/12/17 02/13/17 02/13/17 22:59 06:59 14:59 Intake Total 800 100 Output Total 450 450 Balance 350 -350 Lab Results - Last 24 hrs: Laboratory Results - last 24 hr 02/12/17 02/12/17 02/12/17 Range/Units 11:07 16:05 21:04 POC Glucose 125 H 127 H 146 H (60-110) mg/dL Med Orders - Current: Current Medications Acetaminophen (Tylenol) 650 mg PO Q4H PRN PRN Reason: Pain (Mild 1-3)/fever Last Admin: 02/06/17 19:41 Dose: 650 mg Albuterol/Ipratropium (Duoneb 3.0-0.5 Mg/3 Ml) 3 ml NEB Q4HRRT [facility] Last Admin: 02/13/17 05:50 Dose: 3 ml Bisacodyl (Dulcolax) 10 mg RECTAL DAILY PRN PRN Reason: Constipation Last Admin: 02/11/17 16:51 Dose: 10 mg Doxycycline Hyclate (Vibramycin) 100 mg PO Q12HR [facility] Last Admin: 02/13/17 08:34 Dose: 100 mg Enoxaparin Sodium (Lovenox) 40 mg SUBCUT DAILY [facility] Last Admin: 02/13/17 08:34 Dose: 40 mg Magnesium Hydroxide (Milk Of Magnesia) 30 ml PO DAILY [facility] Last Admin: 02/13/17 08:33 Dose: 30 ml Metformin HCl (Glucophage) 1,500 mg PO BIDMEALS [facility] Last Admin: 02/13/17 08:33 Dose: 1,500 mg Metoprolol Tartrate (Lopressor) 25 mg PO Q8H [facility] Last Admin: 02/13/17 08:34 Dose: 25 mg Omeprazole (Omeprazole) 20 mg PO ACBREAKFAST [facility] Last Admin: 02/13/17 06:34 Dose: 20 mg Ondansetron HCl (Zofran Odt) 4 mg PO Q4H PRN PRN Reason: nausea, able to take PO Last Admin: 02/06/17 08:08 Dose: 4 mg Oxycodone HCl (Oxycontin) 40 mg PO BEDTIME PRN PRN Reason: Pain (severe 7-10) Last Admin: 02/13/17 00:04 Dose: 40 mg Oxycodone HCl (Oxycodone) 5 mg PO Q4H PRN PRN Reason: Pain Last Admin: 02/13/17 06:34 Dose: 5 mg Symbicort 160-4.5mcg 1 each INH BID [facility] Last Admin: 02/12/17 21:29 Dose: 1 each Sertraline HCl (Zoloft) 50 mg PO BEDTIME [facility] Last Admin: 02/12/17 21:10 Dose: 50 mg Sodium Chloride (Saline Flush) 10 ml FLUSH ASDIRECTED PRN PRN Reason: Keep Vein Open Last Admin: 02/04/17 12:06 Dose: 10 ml Sodium Chloride (Saline Flush) 2.5 ml FLUSH ASDIRECTED PRN PRN Reason: Keep Vein Open Last Admin: 02/04/17 12:07 Dose: 2.5 ml Sodium Chloride (Saline Flush) 10 ml FLUSH ASDIRECTED PRN PRN Reason: Keep Vein Open Sodium Chloride (Saline Flush) 2.5 ml FLUSH ASDIRECTED PRN PRN Reason: Keep Vein Open Tamsulosin HCl (Flomax) 0.4 mg PO BEDTIME [facility] Last Admin: 02/12/17 21:09 Dose: 0.4 mg Temazepam (Restoril) 15 mg PO BEDTIME PRN PRN Reason: Sleep Last Admin: 02/11/17 23:04 Dose: 15 mg Tiotropium Supai (Spiriva Handihaler) 18 mcg INH DAILY [facility] Last Admin: 02/12/17 09:02 Dose: 1 ampule Trazodone HCl (Trazodone) 50 mg PO BEDTIME [facility] Last Admin: 02/12/17 21:09 Dose: 50 mg Discontinued Medications Albuterol/Ipratropium (Duoneb 3.0-0.5 Mg/3 Ml) 3 ml NEB Q4HRRT PRN PRN Reason: Shortness Of Breath/wheezing Last Admin: 02/05/17 17:49 Dose: 3 ml Al Hydroxide/Mg Hydroxide 15 (ml/ Lidocaine HCl 5 ml) 0 ml PO ONETIME ONE Stop: 02/06/17 23:41 Last Admin: 02/07/17 00:04 Dose: 20 each Docusate Sodium (Colace) 100 mg PO ONETIME ONE Stop: 02/11/17 15:03 Last Admin: 02/11/17 15:20 Dose: 100 mg Finasteride (Proscar) 5 mg PO DAILY [facility] Last Admin: 02/12/17 08:20 Dose: 5 mg Furosemide (Lasix) 20 mg PO DAILY [facility] Last Admin: 02/12/17 08:20 Dose: 20 mg Sodium Chloride (Normal Saline) 1,000 mls @ 999 mls/hr IV STAT ONE Stop: 02/04/17 12:31 Last Admin: 02/04/17 12:05 Dose: 999 mls/hr Azithromycin 500 mg/ Sodium (Chloride) 250 mls @ 250 mls/hr IV Q24H [facility] Last Admin: 02/05/17 16:24 Dose: 250 mls/hr Sodium Chloride (Normal Saline) 1,000 mls @ 50 mls/hr IV ASDIRECTED [facility] Last Admin: 02/10/17 06:30 Dose: 50 mls/hr Vancomycin HCl 1,250 mg/ (Dextrose/Water) 250 mls @ 166.667 mls/hr IV Q12H [facility] Last Admin: 02/05/17 00:37 Dose: 166.667 mls/hr Vancomycin HCl 1,250 mg/ (Sodium Chloride) 250 mls @ 166.667 mls/hr IV Q12H [facility] Last Infusion: 02/08/17 01:30 Dose: Infused Piperacillin Sod/Tazobactam (Sod 4.5 gm/ Sodium Chloride) 100 mls @ 100 mls/hr IV Q6H [facility] Last Admin: 02/12/17 06:37 Dose: 100 mls/hr Vancomycin HCl 1,250 mg/ (Sodium Chloride) 250 mls @ 166.667 mls/hr IV Q12H [facility] Last Admin: 02/11/17 23:05 Dose: 166.6 mls/hr Levofloxacin/Dextrose 750 mg/ (Premix) 150 mls @ 100 mls/hr IV Q24H [facility] Last Admin: 02/11/17 13:54 Dose: 100 mls/hr Sodium Chloride (Normal Saline) 1,000 mls @ 75 mls/hr IV ASDIRECTED [facility] Last Admin: 02/11/17 10:47 Dose: 75 mls/hr Magnesium Sulfate 2 gm/ Premix 50 mls @ 50 mls/hr IV ONETIME ONE Stop: 02/11/17 16:06 Last Admin: 02/11/17 15:20 Dose: 50 mls/hr Ketorolac Tromethamine (Toradol) 15 mg IVPUSH STAT ONE Stop: 02/04/17 13:38 Last Admin: 02/04/17 13:42 Dose: 15 mg Metformin HCl (Glucophage) 1,500 mg PO BID [facility] Last Admin: 02/06/17 08:08 Dose: 1,500 mg Metoprolol Succinate (Toprol Xl) 25 mg PO DAILY [facility] Last Admin: 02/09/17 08:22 Dose: 25 mg Morphine Sulfate (Morphine) 2 mg IVPUSH Q4H PRN PRN Reason: Pain (moderate 4-6) Last Admin: 02/11/17 10:10 Dose: 2 mg Morphine Sulfate (Morphine) 2 mg IVPUSH Q2H PRN PRN Reason: Pain (moderate 4-6) Last Admin: 02/11/17 19:18 Dose: 2 mg Omeprazole (Omeprazole) 20 mg PO DAILY [facility] Last Admin: 02/06/17 08:08 Dose: 20 mg Oxycodone HCl (Oxycodone) 5 mg PO Q4H PRN PRN Reason: Breakthrough Pain Last Admin: 02/06/17 20:43 Dose: 5 mg Oxycodone HCl (Oxycodone) 10 mg PO Q4H PRN PRN Reason: Breakthrough Pain Last Admin: 02/11/17 08:16 Dose: 10 mg Oxycodone HCl (Oxycodone) 10 mg PO Q4H [facility] Last Admin: 02/12/17 06:37 Dose: 10 mg Potassium Chloride (Klor-Con M20) 20 meq PO ONETIME ONE Stop: 02/09/17 10:53 Last Admin: 02/09/17 12:55 Dose: 20 meq Trazodone HCl (Trazodone) 100 mg PO BEDTIME [facility] Last Admin: 02/11/17 20:48 Dose: 100 mg Vancomycin HCl (Pharmacy To Dose - Vancomycin) 1 dose .XX ASDIRECTED [facility] Vancomycin HCl (Pharmacy To Dose - Vancomycin) 1 dose .XX ASDIRECTED [facility]ARP[facility] - Exam Quality Assessment: Reports: supplemental oxygen General: Reports: sedated HEENT: Reports: Pupils equal, Pupils reactive Neck: Reports: supple Lungs: Reports: Decreased breath sounds, Rales. Denies: Wheezing Cardiovascular: Reports: Regular Rate, Regular Rhythm, No Murmurs Abdomen: Reports: bowel sounds present, soft, tenderness. Denies: rebound, guarding Extremities: Reports: edema (trace) Skin: Reports: warm, dry Neurological: Reports: no new focal deficit *Q Meaningful Use (DIS) - VTE *Q VTE Criteria *Q: VTE Mechanical Contraindications *Q: At Risk for Falls - Stroke *Q Stroke Criteria *Q: - AMI *Q AMI Criteria *Q:
[2017-02-13] MEDS: Tiotropium Inhaler 18 MCG Inhalation Powder Cap Kit of 5 INH SCH (09:29)
[2017-02-13] MEDS: SYMBICORT 160-4.5MCG INH SCH (09:29)
[2017-02-13 11:42] VITALS: BP 107/72
--- NOTE | 2017-02-13 14:00 | ECHO ---
EXAM DATE: 02/05/17 PATIENT'S AGE: 71 The echocardiogram report can be seen in this patient's EMR (Electronic Medical Record) in the Reports section. [place]
== END 2017-02-13 14:20 | disposition hospice, inpatient (51) | DRG 871 ==
LOC: MW.ED 11:25 → MW.MS 14:32 → OBSVTOIN 02-05 11:53
PROVIDERS: ADMIT Internal Medicine; ATTEND Internal Medicine
DX: R55 Syncope and collapse (principal); R78.81 Bacteremia; F17.200 Nicotine dependence, unspecified, uncomplicated; J15.211 Pneumonia due to Methicillin susceptible Staphylococcus aureus; K85.90 Acute pancreatitis without necrosis or infection, unspecified; I47.2 Ventricular tachycardia; I45.2 Bifascicular block; B95.7 Other staphylococcus as the cause of diseases classified elsewhere; J44.9 Chronic obstructive pulmonary disease, unspecified; E86.0 Dehydration; E11.9 Type 2 diabetes mellitus without complications; R26.9 Unspecified abnormalities of gait and mobility; R29.6 Repeated falls; E78.00 Pure hypercholesterolemia, unspecified; I10 Essential (primary) hypertension; K21.9 Gastro-esophageal reflux disease without esophagitis; F41.8 Other specified anxiety disorders; Z79.899 Other long term (current) drug therapy; Z51.5 Encounter for palliative care; Z66 Do not resuscitate
CPT/HCPCS: 36415 ×2; 36600; 51703; 70450; 71010; 74176; 80053 ×3; 81001; 82803; 82962 ×4; 83605 ×2; 83735 ×2; 83880 ×2; 84100; 84484; 85025 ×2; 85610 ×2; 86850; 86900; 86901; 87040 ×2; 87086; 93005 ×2; 94640; 94664; 96374; 99285; A9270 ×11; J0456; J1650; J1885; J3370; J7040 ×3; J7050; J7060; 71020; 71020-26; 80048; 80202; 83036; 87077; 87186; 93306; 96361; 96365; 96367; 96375; 99284; G0378; J1956; J2270; J2543; J3475; J7030

== ENCOUNTER 2017-02-23 14:44 | Inpatient (IN) | payer BC, MEDICARE, OTHER ==
[2017-02-23] MEDS ORDERED: fentaNYL 50 MCG/HR Transdermal Patch TRDERM SCH (16:15)
[2017-02-23] MEDS ORDERED: Haloperidol 1 MG Tab PO PRN (16:17)
[2017-02-23] MEDS ORDERED: Ondansetron 4 MG Tab.DIS PO PRN (16:25)
[2017-02-23] MEDS ORDERED: Hydrocolloid Dressing 4x4 Bandage TOP ONE (16:36)
[2017-02-23] MEDS: Magnesium Hydroxide 400 MG/5 ML Susp 30 ML Cup PO PRN (20:24)
[2017-02-23] MEDS: traZODone 50 MG Tab PO SCH (20:24)
[2017-02-23] MEDS: Morphine Oral Concentrate 20 MG/ML 30 ML Bottle SL PRN (22:25)
[2017-02-24] MEDS: Morphine Oral Concentrate 20 MG/ML 30 ML Bottle SL PRN ×5 (02:59→20:05)
[2017-02-24] MEDS: traZODone 50 MG Tab PO SCH (20:34)
[2017-02-25] MEDS: Morphine Oral Concentrate 20 MG/ML 30 ML Bottle SL PRN ×4 (03:00→12:13)
[2017-02-25] MEDS: Hyoscyamine 0.125 MG/ML Bottle PO PRN (15:28)
[2017-02-25] MEDS: traZODone 50 MG Tab PO SCH (23:32)
[2017-02-26] MEDS: Morphine Oral Concentrate 20 MG/ML 30 ML Bottle SL PRN ×4 (02:11→19:44)
[2017-02-26] MEDS: Hyoscyamine 0.125 MG/ML Bottle PO PRN (09:25)
[2017-02-26] MEDS: Magnesium Hydroxide 400 MG/5 ML Susp 30 ML Cup PO PRN (09:30)
[2017-02-26] MEDS: Hydrocolloid Dressing 4x4 Bandage TOP PRN (09:53)
[2017-02-26] MEDS ORDERED: Magnesium Citrate Solution 296 ML Bottle PO PRN ×3 (11:22→12:39)
[2017-02-26] MEDS ORDERED: fentaNYL 100 MCG/HR Transdermal Patch TRDERM SCH (11:30)
[2017-02-26] MEDS: traZODone 50 MG Tab PO SCH (23:52)
[2017-02-27] MEDS: Morphine Oral Concentrate 20 MG/ML 30 ML Bottle SL PRN ×6 (02:39→23:55)
[2017-02-27] MEDS: traZODone 50 MG Tab PO SCH (20:12)
[2017-02-28] MEDS: Morphine Oral Concentrate 20 MG/ML 30 ML Bottle SL PRN ×3 (05:10→13:06)
[2017-02-28] MEDS: Hydrocolloid Dressing 4x4 Bandage TOP PRN (09:52)
[2017-02-28 09:59] VITALS: BP 111/55
[2017-02-28] MEDS: Hyoscyamine 0.125 MG/ML Bottle PO PRN (12:30)
== END 2017-02-28 13:35 | DRG 191 ==
LOC: MW.MS 14:44 → UNDOADMIN 14:44 → UNDODISIN 02-28 13:35
PROVIDERS: ADMIT Internal Medicine; ATTEND Internal Medicine
DX: J44.9 Chronic obstructive pulmonary disease, unspecified (principal); K86.0 Alcohol-induced chronic pancreatitis; Z51.5 Encounter for palliative care; Z75.5 Holiday relief care; D64.9 Anemia, unspecified; E11.9 Type 2 diabetes mellitus without complications; I11.0 Hypertensive heart disease with heart failure; I50.9 Heart failure, unspecified; I25.2 Old myocardial infarction; I25.10 Atherosclerotic heart disease of native coronary artery without angina pectoris; F17.210 Nicotine dependence, cigarettes, uncomplicated; Z95.5 Presence of coronary angioplasty implant and graft; L89.159 Pressure ulcer of sacral region, unspecified stage
CPT/HCPCS: A9270-GY